=== PATIENT | male | born 1940 | race Caucasian/White ===

== ENCOUNTER → 2017-03-27 | Day surgery (SDC) | payer MEDICARE, BC ==
[~2017-03-27] MED LIST: Propofol 200 MG/20 ML SDV ONE; Sodium Chloride 0.9% 1,000 ML IV SCH; fentaNYL 100 MCG/2 ML SDV ONE
[2017-03-27 08:22] VITALS: BP 114/72
--- NOTE | 2017-03-27 11:11 | PROC ---
DATE OF PROCEDURE: 03/27/2017 INDICATION: This is a 77-year-old male who comes in for a colonoscopy. He has a history of polyps in the past. The risks and benefits were explained, and the patient was taken to the OR. ANESTHESIA: Given by nurse rubberizing mechanic. PROCEDURE IN DETAIL: The Olympus 180 scope was used. The tube was placed into the rectum and advanced under direct vision. Immediately we noted significant amount of stool. We tried to advance, and there was stool throughout the first 10 cm, difficult to get an adequate observation of the colonic wall. The procedure was terminated, and the tube was removed. He will have to get himself cleaned out again, and we will try to reschedule him within the next 2 weeks. PREOPERATIVE DIAGNOSIS: History of colonic polyps. POSTOPERATIVE DIAGNOSIS: Failed colonoscopy secondary to poor prep. Ry Lopez MD /[id number]
== END ==
LOC: JP.SDS 06:35
PROVIDERS: ATTEND Internal Medicine
DX: Z12.11 Encounter for screening for malignant neoplasm of colon (principal); Z86.010 Personal history of colon polyps; I10 Essential (primary) hypertension; E66.9 Obesity, unspecified; F32.9 Major depressive disorder, single episode, unspecified; Z87.891 Personal history of nicotine dependence; Z95.0 Presence of cardiac pacemaker; Z98.890 Other specified postprocedural states; Z68.30 Body mass index [BMI] 30.0-30.9, adult; Z79.01 Long term (current) use of anticoagulants; Z88.0 Allergy status to penicillin; Z88.2 Allergy status to sulfonamides
CPT/HCPCS: 45330; J2704; J3010; J7040

== ENCOUNTER 2017-04-10 06:05 | Day surgery (SDC) | payer MEDICARE, BC ==
[2017-04-10] MEDS ORDERED: Sodium Chloride 0.9% 1,000 ML IV SCH (07:00)
[2017-04-10] MEDS ORDERED: fentaNYL 100 MCG/2 ML SDV ONE (07:07)
[2017-04-10] MEDS ORDERED: Propofol 200 MG/20 ML SDV ONE ×2 (07:07→08:22)
[2017-04-10 09:31] VITALS: BP 124/68
--- NOTE | 2017-04-10 11:56 | PROC ---
DATE OF PROCEDURE: 04/10/2017 INDICATION: Jeremy is a 77-year-old male, who comes in for a screening colonoscopy. The risks and benefits were explained to the patient, and he was taken to the OR. DESCRIPTION OF PROCEDURE: Anesthesia was given by nurse primary care physician. During the procedure, we used 2 mg of Fentanyl and 240 mg of propofol. The Olympus 180AL scope was used, was placed into the rectum, after examination of the rectum with a gloved finger, which revealed the prostate to be grade 3/6, symmetrical, and soft. The tube was advanced and, at 60 cm, noted a large lesion. Initially, it appeared to be a polyp, but closer evaluation reveals a napkin ring-like lesion. The tube was advanced, and it did get into the cecum. Upon retraction of the tube, again noted the lesion at 60 cm. Biopsy was done. There was also a small polyp noted at 25 cm, and this was also biopsied. The remainder of the evaluation was unremarkable. The tube was removed. The patient tolerated the procedure well. PREOPERATIVE DIAGNOSIS: Screening colonoscopy. POSTOPERATIVE DIAGNOSIS: Napkin ring-like lesion at 60 cm. Biopsy report pending. Another biopsy done at 25 cm, and this revealed most likely a hyperplastic polyp. I feel that he will need to have a colon resection, depending on the report of the biopsy. Ry Lopez MD /[id number]
== END 2017-04-10 10:06 | disposition home or self-care (01) ==
LOC: JP.SDS 06:05
PROVIDERS: ATTEND Internal Medicine
DX: Z12.11 Encounter for screening for malignant neoplasm of colon (principal); D12.6 Benign neoplasm of colon, unspecified; K63.5 Polyp of colon; I10 Essential (primary) hypertension; F32.9 Major depressive disorder, single episode, unspecified; E66.9 Obesity, unspecified; Z88.2 Allergy status to sulfonamides; Z88.0 Allergy status to penicillin; Z95.0 Presence of cardiac pacemaker; Z98.890 Other specified postprocedural states; Z68.30 Body mass index [BMI] 30.0-30.9, adult; Z79.01 Long term (current) use of anticoagulants
CPT/HCPCS: 45380; 88305; J2704; J3010; J7040

== ENCOUNTER 2017-04-15 07:31 | Inpatient (IN) | payer MEDICARE, BC ==
[2017-04-15] MEDS ORDERED: Neomycin/Polymyxin B 1 ML, Sodium Chloride 0.9% 750 ML ONE ×2 (08:00)
[2017-04-15] MEDS: Dextrose 5%-Lactated Ringers 1,000 ML IV SCH ×3 (08:15→20:10)
[2017-04-15] MEDS ORDERED: Celecoxib 200 MG Cap PO ONE (08:15)
[2017-04-15] MEDS ORDERED: Scopolamine 1.5 MG Transdermal Patch TOP SCH (08:15)
[2017-04-15] MEDS ORDERED: Acetaminophen 500 MG Tab PO ONE (08:15)
[2017-04-15] MEDS ORDERED: fentaNYL 250 MCG/5 ML SDV ONE (08:33)
[2017-04-15] MEDS ORDERED: Glycopyrrolate 0.2 MG/ML 5 ML MDV ONE (08:34)
[2017-04-15] MEDS ORDERED: Dexamethasone 4 MG/ML SDV ONE (08:34)
[2017-04-15] MEDS ORDERED: Rocuronium 50 MG/5 ML Vial ONE ×2 (08:34→11:44)
[2017-04-15] MEDS ORDERED: Succinylcholine 200 MG/10 ML MDV ONE (08:34)
[2017-04-15] MEDS ORDERED: Ondansetron 4 MG/2 ML SDV ONE (08:34)
[2017-04-15] MEDS ORDERED: Neostigmine Methylsulfate 1 MG/ML 5 ML Syringe ONE (08:34)
[2017-04-15] MEDS ORDERED: Propofol 200 MG/20 ML SDV ONE (08:34)
[2017-04-15] MEDS ORDERED: Naloxone 0.4 MG/ML SDV IVPUSH PRN (09:40)
[2017-04-15] MEDS ORDERED: cefOXitin 2 GM in Sodium Chloride 0.9% 50 ML IV ONE (09:45)
[2017-04-15] MEDS ORDERED: Ketamine 500 MG/5 ML MDV IV ONE ×2 (09:45)
[2017-04-15] MEDS ORDERED: Lidocaine 2% 100 MG/5 ML Syringe IVPUSH ONE (09:45)
[2017-04-15] MEDS ORDERED: Meropenem 500 MG SDV ONE (09:49)
[2017-04-15] MEDS ORDERED: fentaNYL 100 MCG/2 ML SDV ONE (10:49)
[2017-04-15] MEDS ORDERED: Sodium Chloride 0.9% 10 ML ONE ×2 (10:49→11:39)
[2017-04-15] MEDS ORDERED: Lactated Ringers 1,000 ML ONE (10:50)
[2017-04-15] MEDS ORDERED: ePHEDrine 50 MG/ML SDV ONE (10:59)
[2017-04-15] MEDS ORDERED: Phenylephrine 1% 10 MG/ML SDV ONE (11:39)
[2017-04-15] MEDS: fentaNYL 2,500 MCG in Sodium Chloride 0.9% 200 ML EPIDUR SCH (13:15)
[2017-04-15] MEDS ORDERED: Ondansetron 4 MG/2 ML SDV IVPUSH PRN (13:41)
[2017-04-15] MEDS ORDERED: hydrOXYzine HCl 100 MG/2 ML SDV IM PRN (13:44)
[2017-04-15] MEDS ORDERED: hydrOXYzine HCl 25 MG Tab PO PRN (13:44)
[2017-04-15] MEDS: Lidocaine 0.4%/D5W 2 GM/500 ML BAG IV SCH (13:45)
[2017-04-15] MEDS ORDERED: Naloxone 0.4 MG/ML SDV IV PRN (13:59)
[2017-04-15] MEDS ORDERED: diphenhydrAMINE 50 MG/ML SDV IVPUSH PRN (13:59)
[2017-04-15] MEDS: cefOXitin 2 GM in Sodium Chloride 0.9% 50 ML IV SCH ×2 (14:53→20:07)
[2017-04-15] MEDS: VERIFY SCOPOLAMINE PATCH TOP SCH (14:56)
[2017-04-15] MEDS ORDERED: Lactated Ringers 500 ML IV ONE (15:15)
[2017-04-15] MEDS: Pantoprazole 40 MG Vial IV SCH (15:20)
[2017-04-15] MEDS: Acetaminophen 1,000 MG in Premix Bag 1 BAG IV SCH ×2 (16:37→22:23)
[2017-04-15] MEDS: Tamsulosin 0.4 MG Cap.ER PO SCH (20:02)
--- NOTE | 2017-04-15 21:16 | PCM.PN ---
- General Info Date of Service: 04/15/17 Subjective Update: He says he has no pain after surgery and very pleased with the care and the surgery. Functional Status: Reports: Pain Controlled - Review of Systems General: Reports: No Symptoms HEENT: Reports: No Symptoms Pulmonary: Reports: No Symptoms Cardiovascular: Reports: No Symptoms Gastrointestinal: Reports: No Symptoms Genitourinary: Reports: No Symptoms Musculoskeletal: Reports: No Symptoms Skin: Reports: No Symptoms Neurological: Reports: No Symptoms Psychiatric: Reports: No Symptoms - Patient Data Vitals - Most Recent: Last Vital Signs Temp 97.1 F 04/15/17 20:00 Pulse 78 04/15/17 20:00 Resp 18 04/15/17 20:00 BP 119/65 04/15/17 20:00 Pulse Ox 94 L 04/15/17 20:00 Weight - Most Recent: 255 lb I&O - Last 24 Hours: Intake & Output 04/15/17 04/15/17 04/15/17 06:59 14:59 22:59 Intake Total 125 2192 Output Total 180 175 Balance -2016 Lab Results Last 24 Hours: Laboratory Results - last 24 hr 04/15/17 04/15/17 Range/Units 08:54 08:54 PT 12.9 H (9.5-12.0) sec INR 1.20 (0.80-1.20) Phosphorus 1.9 L (2.5-4.9) mg/dL Magnesium 1.3 L (1.8-2.4) mg/dL Med Orders - Current: Current Medications Alvimopan (Entereg) 12 mg PO BID [facility] Stop: 04/22/17 09:01 Last Admin: 04/15/17 20:02 Dose: 12 mg Diphenhydramine HCl (Benadryl) 25 mg IVPUSH Q6H PRN PRN Reason: ITCHING Hydrochlorothiazide (Hydrochlorothiazide) 25 mg PO DAILY [facility] Hydroxyzine HCl (Vistaril) 100 mg IM ASDIRECTED PRN PRN Reason: Pain Hydroxyzine HCl (Atarax) 100 mg PO ASDIRECTED PRN PRN Reason: Pain Lidocaine HCl/Dextrose (Lidocaine 2 Gm/D5w 500 Ml) 2 gm in 500 mls @ 30 mls/hr IV .[id number] [facility] PRN Reason: 2 MG/MIN Stop: 04/16/17 10:00 Last Admin: 04/15/17 13:45 Dose: 2 mg/min, 30 mls/hr Fentanyl 2,500 mcg/ Sodium (Chloride) 250 mls @ 0 mls/hr EPIDUR TITRATE [facility]; Titrate PRN Reason: Protocol Dextrose/Lactated Ringer's (Dextrose 5%-Lactated Ringers) 1,000 mls @ 175 mls/ hr IV ASDIRECTED [facility] Last Admin: 04/15/17 20:10 Dose: 175 mls/hr Cefoxitin Sodium 2 gm/ Sodium (Chloride) 50 mls @ 100 mls/hr IV Q6H [facility] Stop: 04/16/17 09:29 Last Admin: 04/15/17 20:07 Dose: 100 mls/hr Acetaminophen 1,000 mg/ Premix 100 mls @ 400 mls/hr IV Q6H [facility] Stop: 04/16/17 16:01 Last Admin: 04/15/17 16:37 Dose: 400 mls/hr Lactated Ringer's (Ringers, Lactated) 500 mls @ 500 mls/hr IV .BOLUS [facility] Lisinopril (Prinivil) 20 mg PO DAILY [facility] Naloxone HCl (Narcan) 0.1 mg IVPUSH Q5M PRN PRN Reason: RESP RATE LESS THAN 6/MINUTE Naloxone HCl (Narcan) 0.4 mg IV ASDIRECTED PRN PRN Reason: ITCHING Verify Scopolamine (Patch) 0 each TOP DAILY [facility] Last Admin: 04/15/17 14:56 Dose: Not Given Ondansetron HCl (Zofran) 4 mg IVPUSH Q4H PRN PRN Reason: Nausea Pantoprazole Sodium (Protonix Iv) 40 mg IV Q24H [facility] Last Admin: 04/15/17 15:20 Dose: 40 mg Scopolamine (Transderm-Scop) 1.5 mg TOP Q72H [facility] Stop: 04/18/17 04:00 Last Admin: 04/15/17 08:00 Dose: 1.5 mg Tamsulosin HCl (Flomax) 0.4 mg PO BEDTIME [facility] Last Admin: 04/15/17 20:02 Dose: 0.4 mg Discontinued Medications Acetaminophen (Tylenol Extra Strength) 1,000 mg PO ONETIME ONE Stop: 04/15/17 08:16 Last Admin: 04/15/17 08:00 Dose: 1,000 mg Alvimopan (Entereg) 12 mg PO ONETIME ONE Stop: 04/15/17 07:46 Last Admin: 04/15/17 07:59 Dose: 12 mg Celecoxib (Celebrex) 200 mg PO ONETIME ONE Stop: 04/15/17 08:16 Last Admin: 04/15/17 07:59 Dose: 200 mg Neomycin/Polymyxin 1 ml/ (Sodium Chloride 750 ml) 0 ml .XX ONETIME ONE Stop: 04/15/17 08:01 Last Admin: 04/15/17 08:00 Dose: 750 ml Dexamethasone (Dexamethasone) Confirm Administered Dose 4 mg .ROUTE .STK-MED ONE Stop: 04/15/17 08:35 Ephedrine Sulfate (Ephedrine Sulfate) Confirm Administered Dose 50 mg .ROUTE .STK-MED ONE Stop: 04/15/17 11:00 Fentanyl (Sublimaze) Confirm Administered Dose 250 mcg .ROUTE .STK-MED ONE Stop: 04/15/17 08:34 Fentanyl (Sublimaze) Confirm Administered Dose 100 mcg .ROUTE .STK-MED ONE Stop: 04/15/17 10:50 Glycopyrrolate (Robinul) Confirm Administered Dose 1 mg .ROUTE .STK-MED ONE Stop: 04/15/17 08:35 Dextrose/Lactated Ringer's (Dextrose 5%-Lactated Ringers) 1,000 mls @ 100 mls/ hr IV ASDIRECTED [facility] Last Admin: 04/15/17 13:32 Dose: 100 mls/hr Cefoxitin Sodium 2 gm/ Sodium (Chloride) 50 mls @ 100 mls/hr IV ONETIME ONE Stop: 04/15/17 10:14 Last Admin: 04/15/17 10:09 Dose: 100 mls/hr Sodium Chloride (Normal Saline) Confirm Administered Dose 10 mls @ as directed .ROUTE .STK-MED ONE Stop: 04/15/17 10:50 Lactated Ringer's (Ringers, Lactated) Confirm Administered Dose 1,000 mls @ as directed .ROUTE .STK-MED ONE Stop: 04/15/17 10:51 Sodium Chloride (Normal Saline) Confirm Administered Dose 10 mls @ as directed .ROUTE .STK-MED ONE Stop: 04/15/17 11:40 Lactated Ringer's (Ringers, Lactated) 500 mls @ 500 mls/hr IV .BOLUS ONE Stop: 04/15/17 16:14 Last Admin: 04/15/17 15:26 Dose: 500 mls/hr Ketamine HCl (Ketalar) 37 mg IV ONETIME ONE Stop: 04/15/17 09:46 Last Admin: 04/15/17 14:44 Dose: Not Given Lidocaine HCl (Xylocaine 2%) 140 mg IVPUSH ONETIME ONE Stop: 04/15/17 09:46 Last Admin: 04/15/17 13:33 Dose: Not Given Meropenem (Merrem) Confirm Administered Dose 500 mg .ROUTE .STK-MED ONE Stop: 04/15/17 09:50 Last Admin: 04/15/17 10:57 Dose: 500 mg Neostigmine Methylsulfate (Neostigmine) Confirm Administered Dose 5 mg .ROUTE .STK-MED ONE Stop: 04/15/17 08:35 Ondansetron HCl (Zofran) Confirm Administered Dose 4 mg .ROUTE .STK-MED ONE Stop: 04/15/17 08:35 Phenylephrine HCl (Pako-Synephrine) Confirm Administered Dose 10 mg .ROUTE .STK- MED ONE Stop: 04/15/17 11:40 Propofol (Diprivan 20 Ml) Confirm Administered Dose 200 mg .ROUTE .STK-MED ONE Stop: 04/15/17 08:35 Rocuronium [place] (Zemuron) Confirm Administered Dose 50 mg .ROUTE .STK-MED ONE Stop: 04/15/17 08:35 Rocuronium [place] (Zemuron) Confirm Administered Dose 50 mg .ROUTE .STK-MED ONE Stop: 04/15/17 11:45 Succinylcholine Chloride (Quelicin) Confirm Administered Dose 200 mg .ROUTE .STK -MED ONE Stop: 04/15/17 08:35 - Exam General: Alert, Oriented Neck: Supple Lungs: Clear to Auscultation, Normal Respiratory Effort Cardiovascular: Regular Rate, Regular Rhythm Extremities: Normal Inspection, Normal Range of Motion, Non-Tender, No Pedal Edema, Normal Capillary Refill - Problem List Review Problem List Initiated/Reviewed/Updated: Yes - Plan Plan:: Assessment/Plan: #1. HTN: Stable presently #2. ASHD: Stable presently. #3. S/P colon resection. Stable presently. #4. Atrial Fib. Need to restart coumadin as soon as possible after the closure.
[2017-04-15] MEDS: Lactated Ringers 500 ML IV SCH (21:18)
[2017-04-16] MEDS: Lidocaine 0.4%/D5W 2 GM/500 ML BAG IV SCH (02:44)
[2017-04-16] MEDS ORDERED: Lactated Ringers 500 ML IV SCH (03:15)
[2017-04-16] MEDS: cefOXitin 2 GM in Sodium Chloride 0.9% 50 ML IV SCH ×2 (03:21→09:19)
[2017-04-16] MEDS: Lactated Ringers 500 ML IV SCH (03:50)
[2017-04-16] MEDS: Dextrose 5%-Lactated Ringers 1,000 ML IV SCH ×2 (04:49→18:34)
[2017-04-16] MEDS: Acetaminophen 1,000 MG in Premix Bag 1 BAG IV SCH (04:49)
[2017-04-16] MEDS ORDERED: Lactated Ringers 500 ML IV ONE ×2 (06:56→13:00)
[2017-04-16] MEDS ORDERED: Acetaminophen 325 MG Tab PO SCH (07:30)
--- NOTE | 2017-04-16 09:11 | PN ---
DATE OF SERVICE: 04/16/2017 SUBJECTIVE: Jeremy is postop day #1. He reports his pain is controlled. His vital signs have been normal. Oral intake 820 mL. Output has been diminished. He has received 3 boluses of lactated Ringer's, 500 mL each. REVIEW OF SYSTEMS: Remainder of review of systems negative for any pertinent positives or negatives. OBJECTIVE: GENERAL: Jeremy Correia is a pleasant 77-year-old male. VITAL SIGNS: TPR is 97.6, 88, 20, and blood pressure 102/77. HEENT: Negative. NECK: Supple. HEART: Regular rate and rhythm. LUNGS: Clear. ABDOMEN: Dressings dry and intact. Abdominal binders on. EXTREMITIES: Without peripheral edema. Toribio catheter in place and draining clear enzo urine. ASSESSMENT: Exploratory laparotomy with intraoperative colonoscopy, rectosigmoid resection with coloproctostomy, and placement of Vicryl mesh for sessile polyp located in the sigmoid colon, inability to palpate location of tumor; on 04/15/2017, Richar Samaniego MD. RECOMMENDATION: Orders; 1. IV 175 mL/hour, decrease to 100 mL/hour at 1800 hours. 2. Check CBC, BMP, and phos in a.m. 3. Schedule and have consent signed for delayed primary closure; Richar Samaniego MD; for , 04/17/2017, at 0715 hours. 4. N.p.o. after midnight. 5. Mag phos 2 grams q.6 hours x72 hours. 6. Celebrex 200 mg p.o. daily. 7. Tylenol 650 mg q.6 hours p.o. when IV Tylenol is complete. 8. Good pulmonary toilet. 9. We will evaluate p.r.n. or in a.m. Debra Fuentes PA-C /[id number]
[2017-04-16] MEDS: Hydrochlorothiazide 25 MG Tab PO SCH (09:34)
[2017-04-16] MEDS: Bisacodyl 5 MG Tab PO SCH ×2 (09:34→20:17)
[2017-04-16] MEDS: Celecoxib 200 MG Cap PO SCH (09:34)
[2017-04-16] MEDS: VERIFY SCOPOLAMINE PATCH TOP SCH (09:35)
[2017-04-16] MEDS: Lisinopril 20 MG Tab PO SCH (09:39)
[2017-04-16] MEDS: Magnesium Sulfate/Water 2 GM in Premix Bag 1 BAG IV SCH ×3 (10:16→22:08)
[2017-04-16] MEDS: Acetaminophen 325 MG Tab PO SCH ×3 (11:17→21:46)
[2017-04-16] MEDS ORDERED: Dextrose 5%-Lactated Ringers 1,000 ML IV SCH (11:45)
[2017-04-16] MEDS ORDERED: Furosemide 20 MG/2 ML VIAL IVPUSH ONE (13:00)
[2017-04-16] MEDS: fentaNYL 2,500 MCG in Sodium Chloride 0.9% 200 ML EPIDUR SCH (13:57)
[2017-04-16] MEDS: Pantoprazole 40 MG Vial IV SCH (15:05)
[2017-04-16] MEDS: Tamsulosin 0.4 MG Cap.ER PO SCH (20:17)
--- NOTE | 2017-04-16 20:17 | PCM.PN ---
- General Info Date of Service: 04/16/17 Functional Status: Reports: Pain Controlled - Review of Systems General: Reports: Weakness HEENT: Reports: No Symptoms Pulmonary: Reports: No Symptoms Cardiovascular: Reports: No Symptoms Psychiatric: Reports: No Symptoms - Patient Data Vitals - Most Recent: Last Vital Signs Temp 97.9 F 04/16/17 19:13 Pulse 69 04/16/17 19:13 Resp 18 04/16/17 19:13 BP 121/72 04/16/17 19:13 Pulse Ox 94 L 04/16/17 20:02 Weight - Most Recent: 254 lb 15.998 oz I&O - Last 24 Hours: Intake & Output 04/16/17 04/16/17 04/16/17 06:59 14:59 22:59 Intake Total 2360 1050 2908 Output Total 615 181 3732 Balance 2155 862 1695 Lab Results Last 24 Hours: Laboratory Results - last 24 hr 04/15/17 04/16/17 04/16/17 Range/Units 08:00 04:34 04:34 WBC 17.4 H (4.5-11.0) K/uL RBC 4.54 (4.30-5.90) M/uL Hgb 12.2 D (12.0-15.0) g/dL Hct 39.0 L (40.0-54.0) % MCV 86 (80-98) fL MCH 27 (27-31) pg MCHC 31 L (32-36) % Plt Count 188 (150-400) K/uL Sodium 138 L (140-148) mmol/L Potassium 4.6 (3.6-5.2) mmol/L Chloride 104 (100-108) mmol/L Carbon Dioxide 25 (21-32) mmol/L Anion Gap 13.6 (5.0-14.0) mmol/L BUN 21 H (7-18) mg/dL Creatinine 2.1 H D (0.8-1.3) mg/dL Est Cr Clr Drug Dosing 31.38 mL/min Estimated GFR (MDRD) 31 L (>60) Glucose 104 (74-106) mg/dL Calcium 9.4 (8.5-10.1) mg/dL Phosphorus 3.3 (2.5-4.9) mg/dL Magnesium 1.3 L (1.8-2.4) mg/dL NT-Pro-B Natriuret Pep 108 (5-450) pg/mL Carcinoembryonic Ag 1.6 (0.0-3.7) ng/mL Med Orders - Current: Current Medications Acetaminophen (Tylenol) 650 mg PO Q6H [facility] Last Admin: 04/16/17 15:48 Dose: 650 mg Alvimopan (Entereg) 12 mg PO BID [facility] Stop: 04/22/17 09:01 Last Admin: 04/16/17 09:34 Dose: 12 mg Bisacodyl (Dulcolax) 20 mg PO BID [facility] Last Admin: 04/16/17 09:34 Dose: 20 mg Celecoxib (Celebrex) 200 mg PO DAILY [facility] Last Admin: 04/16/17 09:34 Dose: 200 mg Diphenhydramine HCl (Benadryl) 25 mg IVPUSH Q6H PRN PRN Reason: ITCHING Hydrochlorothiazide (Hydrochlorothiazide) 25 mg PO DAILY [facility] Last Admin: 04/16/17 09:34 Dose: 25 mg Hydroxyzine HCl (Vistaril) 100 mg IM ASDIRECTED PRN PRN Reason: Pain Hydroxyzine HCl (Atarax) 100 mg PO ASDIRECTED PRN PRN Reason: Pain Fentanyl 2,500 mcg/ Sodium (Chloride) 250 mls @ 0 mls/hr EPIDUR TITRATE [facility]; Titrate PRN Reason: Protocol Last Admin: 04/16/17 13:57 Dose: 50 mcg/hr, 5 mls/hr Magnesium Sulfate 2 gm/ Premix 50 mls @ 25 mls/hr IV Q6H [facility] Stop: 04/19/17 05:59 Last Admin: 04/16/17 15:09 Dose: 25 mls/hr Dextrose/Lactated Ringer's (Dextrose 5%-Lactated Ringers) 1,000 mls @ 100 mls/ hr IV ASDIRECTED [facility] Last Admin: 04/16/17 18:34 Dose: 100 mls/hr Lisinopril (Prinivil) 20 mg PO DAILY [facility] Last Admin: 04/16/17 09:39 Dose: Not Given Naloxone HCl (Narcan) 0.1 mg IVPUSH Q5M PRN PRN Reason: RESP RATE LESS THAN 6/MINUTE Naloxone HCl (Narcan) 0.4 mg IV ASDIRECTED PRN PRN Reason: ITCHING Verify Scopolamine (Patch) 0 each TOP DAILY [facility] Last Admin: 04/16/17 09:35 Dose: Not Given Ondansetron HCl (Zofran) 4 mg IVPUSH Q4H PRN PRN Reason: Nausea Pantoprazole Sodium (Protonix Iv) 40 mg IV Q24H [facility] Last Admin: 04/16/17 15:05 Dose: 40 mg Scopolamine (Transderm-Scop) 1.5 mg TOP Q72H [facility] Stop: 04/18/17 04:00 Last Admin: 04/15/17 08:00 Dose: 1.5 mg Senna/Docusate Sodium (Senna Plus) 2 tab PO BEDTIME [facility] Tamsulosin HCl (Flomax) 0.4 mg PO BEDTIME [facility] Last Admin: 04/15/17 20:02 Dose: 0.4 mg Discontinued Medications Acetaminophen (Tylenol Extra Strength) 1,000 mg PO ONETIME ONE Stop: 04/15/17 08:16 Last Admin: 04/15/17 08:00 Dose: 1,000 mg Acetaminophen (Tylenol) 650 mg PO Q6H [facility] Last Admin: 04/16/17 08:19 Dose: Not Given Alvimopan (Entereg) 12 mg PO ONETIME ONE Stop: 04/15/17 07:46 Last Admin: 04/15/17 07:59 Dose: 12 mg Celecoxib (Celebrex) 200 mg PO ONETIME ONE Stop: 04/15/17 08:16 Last Admin: 04/15/17 07:59 Dose: 200 mg Neomycin/Polymyxin 1 ml/ (Sodium Chloride 750 ml) 0 ml .XX ONETIME ONE Stop: 04/15/17 08:01 Last Admin: 04/15/17 08:00 Dose: 750 ml Dexamethasone (Dexamethasone) Confirm Administered Dose 4 mg .ROUTE .STK-MED ONE Stop: 04/15/17 08:35 Ephedrine Sulfate (Ephedrine Sulfate) Confirm Administered Dose 50 mg .ROUTE .STK-MED ONE Stop: 04/15/17 11:00 Fentanyl (Sublimaze) Confirm Administered Dose 250 mcg .ROUTE .STK-MED ONE Stop: 04/15/17 08:34 Fentanyl (Sublimaze) Confirm Administered Dose 100 mcg .ROUTE .STK-MED ONE Stop: 04/15/17 10:50 Furosemide (Lasix) 10 mg IVPUSH ONETIME ONE Stop: 04/16/17 13:01 Last Admin: 04/16/17 13:02 Dose: 10 mg Glycopyrrolate (Robinul) Confirm Administered Dose 1 mg .ROUTE .ST-MED ONE Stop: 04/15/17 08:35 Dextrose/Lactated Ringer's (Dextrose 5%-Lactated Ringers) 1,000 mls @ 100 mls/ hr IV ASDIRECTED [facility] Last Admin: 04/15/17 13:32 Dose: 100 mls/hr Cefoxitin Sodium 2 gm/ Sodium (Chloride) 50 mls @ 100 mls/hr IV ONETIME ONE Stop: 04/15/17 10:14 Last Admin: 04/15/17 10:09 Dose: 100 mls/hr Lidocaine HCl/Dextrose (Lidocaine 2 Gm/D5w 500 Ml) 2 gm in 500 mls @ 30 mls/hr IV .[id number] [facility] PRN Reason: 2 MG/MIN Stop: 04/16/17 10:00 Last Admin: 04/16/17 02:44 Dose: 2 mg/min, 30 mls/hr Sodium Chloride (Normal Saline) Confirm Administered Dose 10 mls @ as directed .ROUTE .[facility]-MED ONE Stop: 04/15/17 10:50 Lactated Ringer's (Ringers, Lactated) Confirm Administered Dose 1,000 mls @ as directed .ROUTE .[facility]-MED ONE Stop: 04/15/17 10:51 Sodium Chloride (Normal Saline) Confirm Administered Dose 10 mls @ as directed .ROUTE .[facility]-MED ONE Stop: 04/15/17 11:40 Dextrose/Lactated Ringer's (Dextrose 5%-Lactated Ringers) 1,000 mls @ 175 mls/ hr IV ASDIRECTED [facility] Last Admin: 04/16/17 04:49 Dose: 175 mls/hr Cefoxitin Sodium 2 gm/ Sodium (Chloride) 50 mls @ 100 mls/hr IV Q6H [facility] Stop: 04/16/17 09:29 Last Admin: 04/16/17 09:19 Dose: 100 mls/hr Acetaminophen 1,000 mg/ Premix 100 mls @ 400 mls/hr IV Q6H [facility] Stop: 04/16/17 16:01 Last Admin: 04/16/17 04:49 Dose: 400 mls/hr Lactated Ringer's (Ringers, Lactated) 500 mls @ 500 mls/hr IV .BOLUS ONE Stop: 04/15/17 16:14 Last Admin: 04/15/17 15:26 Dose: 500 mls/hr Lactated Ringer's (Ringers, Lactated) 500 mls @ 500 mls/hr IV .BOLUS [facility] Last Admin: 04/16/17 03:50 Dose: 500 mls/hr Lactated Ringer's (Ringers, Lactated) 500 mls @ 500 mls/hr IV .BOLUS [facility] Lactated Ringer's (Ringers, Lactated) 500 mls @ 500 mls/hr IV ONETIME ONE Stop: 04/16/17 07:55 Last Admin: 04/16/17 06:59 Dose: 500 mls/hr Dextrose/Lactated Ringer's (Dextrose 5%-Lactated Ringers) 1,000 mls @ 175 mls/ hr IV ASDIRECTED [facility] Stop: 04/16/17 17:55 Last Admin: 04/16/17 11:42 Dose: 175 mls/hr Lactated Ringer's (Ringers, Lactated) 500 mls @ 500 mls/hr IV .BOLUS ONE Stop: 04/16/17 13:59 Last Admin: 04/16/17 13:02 Dose: 500 mls/hr Ketamine HCl (Ketalar) 37 mg IV ONETIME ONE Stop: 04/15/17 09:46 Last Admin: 04/15/17 14:44 Dose: Not Given Lidocaine HCl (Xylocaine 2%) 140 mg IVPUSH ONETIME ONE Stop: 04/15/17 09:46 Last Admin: 04/15/17 13:33 Dose: Not Given Meropenem (Merrem) Confirm Administered Dose 500 mg .ROUTE .STK-MED ONE Stop: 04/15/17 09:50 Last Admin: 04/15/17 10:57 Dose: 500 mg Neostigmine Methylsulfate (Neostigmine) Confirm Administered Dose 5 mg .ROUTE .STK-MED ONE Stop: 04/15/17 08:35 Ondansetron HCl (Zofran) Confirm Administered Dose 4 mg .ROUTE .STK-MED ONE Stop: 04/15/17 08:35 Phenylephrine HCl (Pako-Synephrine) Confirm Administered Dose 10 mg .ROUTE .STK- MED ONE Stop: 04/15/17 11:40 Propofol (Diprivan 20 Ml) Confirm Administered Dose 200 mg .ROUTE .STK-MED ONE Stop: 04/15/17 08:35 Rocuronium [place] (Zemuron) Confirm Administered Dose 50 mg .ROUTE .STK-MED ONE Stop: 04/15/17 08:35 Rocuronium [place] (Zemuron) Confirm Administered Dose 50 mg .ROUTE .STK-MED ONE Stop: 04/15/17 11:45 Succinylcholine Chloride (Quelicin) Confirm Administered Dose 200 mg .ROUTE .STK -MED ONE Stop: 04/15/17 08:35 - Exam General: Alert, Oriented HEENT: Pupils Equal, Pupils Reactive, EOMI, Mucous Membr. Moist/[place] Neck: Supple Lungs: Clear to Auscultation, Normal Respiratory Effort Cardiovascular: Regular Rate, Regular Rhythm Extremities: Normal Inspection, Normal Range of Motion, Non-Tender, No Pedal Edema, Normal Capillary Refill - Problem List Review Problem List Initiated/Reviewed/Updated: Yes - Plan Plan:: Assessment/Plan: #1. HTN: Good control. #2. ASHD: Stable presently. #3. S/P colon resection. Stable presently. #4. Atrial Fib. Need to restart coumadin as soon as possible closure is tomorrow.
[2017-04-17] MEDS: Magnesium Sulfate/Water 2 GM in Premix Bag 1 BAG IV SCH ×4 (04:10→22:04)
[2017-04-17] MEDS: Acetaminophen 325 MG Tab PO SCH ×4 (04:15→22:04)
[2017-04-17] MEDS: Dextrose 5%-Lactated Ringers 1,000 ML IV SCH (04:29)
[2017-04-17] MEDS ORDERED: Bupivacaine 0.5% 50 ML MDV ONE (06:38)
[2017-04-17] MEDS ORDERED: Lidocaine 1% with EPINEPHrine 1:100,000 50 ML MDV ONE (06:38)
[2017-04-17] MEDS ORDERED: Meropenem 500 MG SDV ONE (06:38)
[2017-04-17] MEDS ORDERED: fentaNYL 100 MCG/2 ML SDV ONE (06:53)
[2017-04-17] MEDS ORDERED: Propofol 200 MG/20 ML SDV ONE (06:53)
[2017-04-17] MEDS ORDERED: fentaNYL 100 MCG/2 ML SDV IVPUSH ONE (08:30)
--- NOTE | 2017-04-17 08:59 | PN ---
DATE OF SERVICE: 04/17/2017 SUBJECTIVE: Jeremy is n.p.o. for delayed primary closure. Vital signs have been stable. Pain has been controlled. Oral intake was 1290. He did have difficulty with maintaining his urinary output quota. He was given Lasix 10 mg IV once. His urine output did increase. He had 4106 out. ALVINA drain put out 20 mL of a light pink serosanguineous drainage. REVIEW OF SYSTEMS: Remainder of review of systems negative for any pertinent positives and negatives. OBJECTIVE: GENERAL: Jeremy Correia is a pleasant 77-year-old male. VITAL SIGNS: TPR is 99.5, 78, 14, and blood pressure 116/63. HEENT: Negative. NECK: Supple. HEART: Regular rate and rhythm. LUNGS: Clear. ABDOMEN: Dressings dry and intact. ALVINA drain intact. Abdominal binder is on. Toribio is intact and draining enzo urine. EXTREMITIES: Reveal trace peripheral edema. ASSESSMENT: Exploratory laparotomy with intraoperative colonoscopy, rectosigmoid resection with coloproctostomy, and placement of Vicryl mesh for sessile polyp located in the sigmoid colon. Date of surgery, 04/15/2017, Richar Samaniego MD. PLAN: 1. Orders to be written after delayed primary closure today. 2. We will evaluate p.r.n. or in a.m. Debra Fuentes PA-C /[id number]
[2017-04-17] MEDS: Lisinopril 20 MG Tab PO SCH (09:21)
[2017-04-17] MEDS: Bisacodyl 5 MG Tab PO SCH ×2 (09:21→20:31)
[2017-04-17] MEDS: Celecoxib 200 MG Cap PO SCH (09:21)
[2017-04-17] MEDS: Hydrochlorothiazide 25 MG Tab PO SCH (09:21)
[2017-04-17] MEDS: VERIFY SCOPOLAMINE PATCH TOP SCH (09:22)
[2017-04-17] MEDS ORDERED: Sodium Chloride 0.9% 10 ML Syringe IV PRN (09:27)
[2017-04-17] MEDS: Magnesium Hydroxide 400 MG/5 ML Susp 30 ML Cup PO SCH ×2 (10:22→20:32)
--- NOTE | 2017-04-17 10:41 | OR ---
DATE OF PROCEDURE: 04/15/2017 PREOPERATIVE DIAGNOSIS: Sessile mass, left colon. POSTOPERATIVE DIAGNOSES: 1. Sessile polyp located in the mid sigmoid colon. 2. Inability to palpate location of the mass. OPERATIVE PROCEDURE: Exploratory laparotomy with: 1. Intraoperative flexible sigmoidoscopy to identify the location of the mass (81106). 2. Rectosigmoid resection with coloproctostomy (68955). 3. Placement of Vicryl mesh to displace pelvic and abdominal wall from underlying small bowel and other viscera (14281). ANESTHESIA: General plus epidural. INDICATION FOR PROCEDURE: This is a 77-year-old male presenting with a recently identified sessile mass, which was located at 60 cm. Dye was injected at the area. The plan was to proceed with exploratory laparotomy with segmental colon resection with primary anastomosis. An enhanced recovery program will be included, which will include a preoperative antibiotic enema and anesthesia consisting of both an epidural catheter infusion and general anesthetic. Potential risks of the procedure including bleeding, infection, injury to the underlying viscera, possible leaks from the anastomosis requiring a temporary colostomy, along with the possibility of cardiopulmonary, septic, or hemorrhagic complications leading to were all discussed, and the patient wishes to proceed. DETAILS OF PROCEDURE: The patient was taken to the operating room and placed in a supine position. After general endotracheal anesthesia was induced, he was converted to a lithotomy position and a Toribio catheter was inserted and the abdomen was prepped and draped. A midline incision from roughly 3 fingerbreadths above the umbilicus to the pubis was made and carried down through the full thickness abdominal wall. Upon entering the peritoneal cavity, general exploration was undertaken. The patient had quite a bit in the way of diverticular disease and quite extensive fat infiltration of the colon mesentery. Apart from that, the mass could not be seen, nor could we see any dye per se. I suspect this may have gone into the depths of the mesentery not visible. Otherwise, the examination in the abdomen was unremarkable, other than a generalized obesity. There was no palpable liver areas and no periaortic lymphadenopathy. At this point, given the inability to identify the location of the tumor, a bowel clamp was placed at the junction of the descending and sigmoid colon, and a flexible sigmoidoscope was then passed. At roughly 60 cm, the area of the sessile polypoid mass could then be identified, along with some faint blue dye stain within the colon wall. That area was then clamped with a Bella clamp to maintain identification of the location and the flexible sigmoidoscope then withdrawn and as much air removed as possible. This was more or less in the mid sigmoid colon. At the junction of the proximal sigmoid colon and descending colon and then the upper rectum were then both divided with JENNIFER black loads and the underlying mesentery divided with a combination of vascular and mesenteric loads, removing a nice fan of underlying mesentery. Care was taken to avoid injury to the left ureter. The specimen was then delivered from the field and opened off the field to confirm adequate removal of the polypoid sessile mass. At this point, the anvil of a 28 mm EEA stapler was placed into the descending colon. This was freed up a little bit from the left lateral pelvic sidewall and then came down to the rectum without any tension. After the anvil was placed into the descending colon, this was re-stapled with a purple load. The main body of EEA stapler was then brought up to the apex of the rectal staple line, then the two components of the stapler were united, and the coloproctostomy was thus accomplished. Upon removal of stapler, double donuts of mucosa were noted within. The area was tested with some air insufflation with the colonoscope, and no air bubbles were seen with the area being covered with antibiotic-containing saline solution. The anastomosis was then reinforced with some 3-0 Vicryl seromuscular stitch, along with fibrin sealant, and at that point, no further problems noted. The omentum was not satisfactorily mobile to get into the pelvis. Therefore, a Vicryl mesh was then placed along the posterior aspect of the urinary bladder, up along the pelvic sidewalls, and then up against the anterior abdominal wall to displace the small bowel and other viscera away from those structures. The midline peritoneum from the semilunaris line down was then closed with a #2 Vicryl stitch, and the anterior fascia was then closed with a #2 Vicryl stitch as well. A single Mike-Larson drain was then placed in the right lateral abdomen and taken down into the depths of the pelvis adjacent to the anastomosis, and otherwise the skin and subcutaneous tissue were left open for planned delayed primary closure in 48 hours. There were no evident complications. The patient was taken to the recovery room in satisfactory condition. Richar Samaniego MD /[id number]
[2017-04-17] MEDS: traMADol 50 MG Tab PO PRN ×2 (12:53→22:09)
[2017-04-17] MEDS: Pantoprazole 40 MG Vial IV SCH (17:09)
--- NOTE | 2017-04-17 20:22 | PCM.PN ---
- General Info Date of Service: 04/17/17 Functional Status: Reports: Pain Controlled - Review of Systems General: Reports: No Symptoms HEENT: Reports: No Symptoms Pulmonary: Reports: No Symptoms Cardiovascular: Reports: No Symptoms Gastrointestinal: Reports: No Symptoms Skin: Reports: No Symptoms Neurological: Reports: No Symptoms - Patient Data Vitals - Most Recent: Last Vital Signs Temp 98.2 F 04/17/17 19:43 Pulse 70 04/17/17 19:43 Resp 12 04/17/17 19:43 BP 113/64 04/17/17 19:43 Pulse Ox 96 04/17/17 19:43 Weight - Most Recent: 254 lb 15.998 oz I&O - Last 24 Hours: Intake & Output 04/17/17 04/17/17 04/17/17 06:59 14:59 22:59 Intake Total 1711 756 490 Output Total 900 250 155 Balance 811 506 335 Lab Results Last 24 Hours: Laboratory Results - last 24 hr 04/17/17 04/17/17 Range/Units 04:43 04:43 WBC 10.8 (4.5-11.0) K/uL RBC 4.47 (4.30-5.90) M/uL Hgb 11.8 L (12.0-15.0) g/dL Hct 38.7 L (40.0-54.0) % MCV 87 (80-98) fL MCH 26 L (27-31) pg MCHC 31 L (32-36) % Plt Count 147 L (150-400) K/uL Sodium 138 L (140-148) mmol/L Potassium 4.3 (3.6-5.2) mmol/L Chloride 103 (100-108) mmol/L Carbon Dioxide 30 (21-32) mmol/L Anion Gap 9.3 (5.0-14.0) mmol/L BUN 23 H (7-18) mg/dL Creatinine 1.4 H (0.8-1.3) mg/dL Est Cr Clr Drug Dosing 46.87 mL/min Estimated GFR (MDRD) 49 L (>60) Glucose 121 H (74-106) mg/dL Calcium 9.6 (8.5-10.1) mg/dL Phosphorus 2.3 L (2.5-4.9) mg/dL Med Orders - Current: Current Medications Acetaminophen (Tylenol) 650 mg PO Q6H [facility] Last Admin: 04/17/17 17:08 Dose: 650 mg Alvimopan (Entereg) 12 mg PO BID [facility] Stop: 04/22/17 09:01 Last Admin: 04/17/17 09:21 Dose: 12 mg Bisacodyl (Dulcolax) 20 mg PO BID [facility] Last Admin: 04/17/17 09:21 Dose: 20 mg Celecoxib (Celebrex) 200 mg PO DAILY [facility] Last Admin: 04/17/17 09:21 Dose: 200 mg Hydrochlorothiazide (Hydrochlorothiazide) 25 mg PO DAILY [facility] Last Admin: 04/17/17 09:21 Dose: 25 mg Hydroxyzine HCl (Vistaril) 100 mg IM ASDIRECTED PRN PRN Reason: Pain Hydroxyzine HCl (Atarax) 100 mg PO ASDIRECTED PRN PRN Reason: Pain Magnesium Sulfate 2 gm/ Premix 50 mls @ 25 mls/hr IV Q6H [facility] Stop: 04/19/17 05:59 Last Admin: 04/17/17 17:08 Dose: 25 mls/hr Lisinopril (Prinivil) 20 mg PO DAILY [facility] Last Admin: 04/17/17 09:21 Dose: 20 mg Magnesium Hydroxide (Milk Of Magnesia) 30 ml PO BID [facility] Last Admin: 04/17/17 10:22 Dose: 30 ml Verify Scopolamine (Patch) 0 each TOP DAILY [facility] Last Admin: 04/17/17 09:22 Dose: Not Given Ondansetron HCl (Zofran) 4 mg IVPUSH Q4H PRN PRN Reason: Nausea Pantoprazole Sodium (Protonix Iv) 40 mg IV Q24H [facility] Last Admin: 04/17/17 17:09 Dose: 40 mg Scopolamine (Transderm-Scop) 1.5 mg TOP Q72H [facility] Stop: 04/18/17 04:00 Last Admin: 04/15/17 08:00 Dose: 1.5 mg Senna/Docusate Sodium (Senna Plus) 2 tab PO BEDTIME [facility] Last Admin: 04/16/17 20:17 Dose: 2 tab Sodium Chloride (Saline Flush) 10 ml IV ASDIRECTED PRN PRN Reason: LINE MAINTENCE Tamsulosin HCl (Flomax) 0.4 mg PO BEDTIME [facility] Last Admin: 04/16/17 20:17 Dose: 0.4 mg Tramadol HCl (Ultram) 50 - 100 mg PO Q6H PRN PRN Reason: PAIN Last Admin: 04/17/17 12:53 Dose: 100 mg Discontinued Medications Acetaminophen (Tylenol Extra Strength) 1,000 mg PO ONETIME ONE Stop: 04/15/17 08:16 Last Admin: 04/15/17 08:00 Dose: 1,000 mg Acetaminophen (Tylenol) 650 mg PO Q6H [facility] Last Admin: 04/16/17 08:19 Dose: Not Given Alvimopan (Entereg) 12 mg PO ONETIME ONE Stop: 04/15/17 07:46 Last Admin: 04/15/17 07:59 Dose: 12 mg Bupivacaine HCl (Marcaine 0.5%) Confirm Administered Dose 50 ml .ROUTE .STK-MED ONE Stop: 04/17/17 06:39 Last Admin: 04/17/17 07:34 Dose: 10 ml Celecoxib (Celebrex) 200 mg PO ONETIME ONE Stop: 04/15/17 08:16 Last Admin: 04/15/17 07:59 Dose: 200 mg Neomycin/Polymyxin 1 ml/ (Sodium Chloride 750 ml) 0 ml .XX ONETIME ONE Stop: 04/15/17 08:01 Last Admin: 04/15/17 08:00 Dose: 750 ml Dexamethasone (Dexamethasone) Confirm Administered Dose 4 mg .ROUTE .STK-MED ONE Stop: 04/15/17 08:35 Diphenhydramine HCl (Benadryl) 25 mg IVPUSH Q6H PRN PRN Reason: ITCHING Ephedrine Sulfate (Ephedrine Sulfate) Confirm Administered Dose 50 mg .ROUTE .STK-MED ONE Stop: 04/15/17 11:00 Fentanyl (Sublimaze) Confirm Administered Dose 250 mcg .ROUTE .STK-MED ONE Stop: 04/15/17 08:34 Fentanyl (Sublimaze) Confirm Administered Dose 100 mcg .ROUTE .STK-MED ONE Stop: 04/15/17 10:50 Fentanyl (Sublimaze) Confirm Administered Dose 100 mcg .ROUTE .STK-MED ONE Stop: 04/17/17 06:54 Fentanyl (Sublimaze) 100 mcg IVPUSH ONETIME ONE Stop: 04/17/17 08:31 Last Admin: 04/17/17 08:22 Dose: 100 mcg Furosemide (Lasix) 10 mg IVPUSH ONETIME ONE Stop: 04/16/17 13:01 Last Admin: 04/16/17 13:02 Dose: 10 mg Glycopyrrolate (Robinul) Confirm Administered Dose 1 mg .ROUTE .STK-MED ONE Stop: 04/15/17 08:35 Dextrose/Lactated Ringer's (Dextrose 5%-Lactated Ringers) 1,000 mls @ 100 mls/ hr IV ASDIRECTED [facility] Last Admin: 04/15/17 13:32 Dose: 100 mls/hr Cefoxitin Sodium 2 gm/ Sodium (Chloride) 50 mls @ 100 mls/hr IV ONETIME ONE Stop: 04/15/17 10:14 Last Admin: 04/15/17 10:09 Dose: 100 mls/hr Lidocaine HCl/Dextrose (Lidocaine 2 Gm/D5w 500 Ml) 2 gm in 500 mls @ 30 mls/hr IV .[id number] [facility] PRN Reason: 2 MG/MIN Stop: 04/16/17 10:00 Last Admin: 04/16/17 02:44 Dose: 2 mg/min, 30 mls/hr Fentanyl 2,500 mcg/ Sodium (Chloride) 250 mls @ 0 mls/hr EPIDUR TITRATE [facility]; Titrate PRN Reason: Protocol Last Admin: 04/16/17 13:57 Dose: 50 mcg/hr, 5 mls/hr Sodium Chloride (Normal Saline) Confirm Administered Dose 10 mls @ as directed .ROUTE .ST-MED ONE Stop: 04/15/17 10:50 Lactated Ringer's (Ringers, Lactated) Confirm Administered Dose 1,000 mls @ as directed .ROUTE .STK-MED ONE Stop: 04/15/17 10:51 Sodium Chloride (Normal Saline) Confirm Administered Dose 10 mls @ as directed .ROUTE .STK-MED ONE Stop: 04/15/17 11:40 Dextrose/Lactated Ringer's (Dextrose 5%-Lactated Ringers) 1,000 mls @ 175 mls/ hr IV ASDIRECTED [facility] Last Admin: 04/16/17 04:49 Dose: 175 mls/hr Cefoxitin Sodium 2 gm/ Sodium (Chloride) 50 mls @ 100 mls/hr IV Q6H [facility] Stop: 04/16/17 09:29 Last Admin: 04/16/17 09:19 Dose: 100 mls/hr Acetaminophen 1,000 mg/ Premix 100 mls @ 400 mls/hr IV Q6H [facility] Stop: 04/16/17 16:01 Last Admin: 04/16/17 04:49 Dose: 400 mls/hr Lactated Ringer's (Ringers, Lactated) 500 mls @ 500 mls/hr IV .BOLUS ONE Stop: 04/15/17 16:14 Last Admin: 04/15/17 15:26 Dose: 500 mls/hr Lactated Ringer's (Ringers, Lactated) 500 mls @ 500 mls/hr IV .BOLUS [facility] Last Admin: 04/16/17 03:50 Dose: 500 mls/hr Lactated Ringer's (Ringers, Lactated) 500 mls @ 500 mls/hr IV .BOLUS [facility] Lactated Ringer's (Ringers, Lactated) 500 mls @ 500 mls/hr IV ONETIME ONE Stop: 04/16/17 07:55 Last Admin: 04/16/17 06:59 Dose: 500 mls/hr Dextrose/Lactated Ringer's (Dextrose 5%-Lactated Ringers) 1,000 mls @ 100 mls/ hr IV ASDIRECTED [facility] Last Admin: 04/17/17 04:29 Dose: 100 mls/hr Dextrose/Lactated Ringer's (Dextrose 5%-Lactated Ringers) 1,000 mls @ 175 mls/ hr IV ASDIRECTED [facility] Stop: 04/16/17 17:55 Last Admin: 04/16/17 11:42 Dose: 175 mls/hr Lactated Ringer's (Ringers, Lactated) 500 mls @ 500 mls/hr IV .BOLUS ONE Stop: 04/16/17 13:59 Last Admin: 04/16/17 13:02 Dose: 500 mls/hr Ketamine HCl (Ketalar) 37 mg IV ONETIME ONE Stop: 04/15/17 09:46 Last Admin: 04/15/17 14:44 Dose: Not Given Lidocaine HCl (Xylocaine 2%) 140 mg IVPUSH ONETIME ONE Stop: 04/15/17 09:46 Last Admin: 04/15/17 13:33 Dose: Not Given Lidocaine/Epinephrine (Xylocaine 1% With Epinephrine 1:100,000) Confirm Administered Dose 50 ml .ROUTE .STK-MED ONE Stop: 04/17/17 06:39 Last Admin: 04/17/17 07:34 Dose: 10 ml Meropenem (Merrem) Confirm Administered Dose 500 mg .ROUTE .STK-MED ONE Stop: 04/15/17 09:50 Last Admin: 04/15/17 10:57 Dose: 500 mg Meropenem (Merrem) Confirm Administered Dose 500 mg .ROUTE .STK-MED ONE Stop: 04/17/17 06:39 Last Admin: 04/17/17 07:35 Dose: 500 mg Naloxone HCl (Narcan) 0.1 mg IVPUSH Q5M PRN PRN Reason: RESP RATE LESS THAN 6/MINUTE Naloxone HCl (Narcan) 0.4 mg IV ASDIRECTED PRN PRN Reason: ITCHING Neostigmine Methylsulfate (Neostigmine) Confirm Administered Dose 5 mg .ROUTE .STK-MED ONE Stop: 04/15/17 08:35 Ondansetron HCl (Zofran) Confirm Administered Dose 4 mg .ROUTE .STK-MED ONE Stop: 04/15/17 08:35 Phenylephrine HCl (Pako-Synephrine) Confirm Administered Dose 10 mg .ROUTE .STK- MED ONE Stop: 04/15/17 11:40 Propofol (Diprivan 20 Ml) Confirm Administered Dose 200 mg .ROUTE .STK-MED ONE Stop: 04/15/17 08:35 Propofol (Diprivan 20 Ml) Confirm Administered Dose 200 mg .ROUTE .STK-MED ONE Stop: 04/17/17 06:54 Rocuronium [place] (Zemuron) Confirm Administered Dose 50 mg .ROUTE .STK-MED ONE Stop: 04/15/17 08:35 Rocuronium [place] (Zemuron) Confirm Administered Dose 50 mg .ROUTE .STK-MED ONE Stop: 04/15/17 11:45 Succinylcholine Chloride (Quelicin) Confirm Administered Dose 200 mg .ROUTE .STK -MED ONE Stop: 04/15/17 08:35 - Exam General: Alert, Oriented HEENT: Pupils Equal, Pupils Reactive, EOMI, Mucous Membr. Moist/[place] Lungs: Clear to Auscultation, Normal Respiratory Effort Cardiovascular: Regular Rate, Regular Rhythm - Problem List Review Problem List Initiated/Reviewed/Updated: Yes - Plan Plan:: Assessment/Plan: #1. HTN: Good control. #2. ASHD: Stable presently. #3. S/P colon resection. Stable presently. #4. Atrial Fib. Need to restart coumadin as soon as possible.
[2017-04-17] MEDS: Tamsulosin 0.4 MG Cap.ER PO SCH (20:32)
[2017-04-18] MEDS ORDERED: Benzocaine/Cetylpyridinium/Menthol Lozenge MUCMEM PRN (02:29)
[2017-04-18] MEDS: Magnesium Sulfate/Water 2 GM in Premix Bag 1 BAG IV SCH ×3 (03:31→16:53)
[2017-04-18] MEDS: Dextrose 5%-Lactated Ringers 1,000 ML IV SCH (03:32)
[2017-04-18] MEDS: Acetaminophen 325 MG Tab PO SCH ×4 (03:37→21:24)
--- NOTE | 2017-04-18 08:25 | PN ---
DATE OF SERVICE: 04/18/2017 SUBJECTIVE: Jeremy had his delayed primary closure yesterday. He is up sitting in the chair. His pain is controlled. He has no questions or concerns. He states he is feeling better. Blood pressure has been low at 80/58, 84/51, 97/53, 88/56, and 106/55; and has normalized now this morning to 114/46. Labs this morning; hemoglobin 10.9, potassium is 3.8, glucose 140, and phosphorus is 1.8. Oral intake 1220 mL. He has had one bowel movement. ALVINA drain put out 5 mL. Urinary output 4106. REVIEW OF SYSTEMS: Remainder of review of systems negative for any pertinent positives and negatives. OBJECTIVE: GENERAL: Jeremy Correia is a 77-year-old male. He is alert and orientated, sitting up in the chair. VITAL SIGNS: TPR 97.7, 80, 18, and blood pressure 114/46. HEENT: Negative. NECK: Supple. HEART: Regular rate and rhythm. LUNGS: Clear. ABDOMEN: Dressings dry and intact. Abdominal binder is on. EXTREMITIES: Without peripheral edema. ASSESSMENT: 1. Delayed primary closure on 03/17/2017. 2. Exploratory laparotomy with intraoperative colonoscopy, rectosigmoid resection with coloproctostomy, and placement of Vicryl mesh for sessile polyp located in the sigmoid colon. Date of surgery 03/15/2017, Richar Samaniego MD. PLAN: 1. Check CBC, CMP, mag, and phos in a.m. 2. Check PT/INR baseline today. 3. Lovenox 40 mg subcu daily. 4. Decrease lisinopril to 10 mg p.o. daily. 5. Potassium phosphate 75 millimoles IV today. 6. Coumadin 10 mg p.o. one time today. 7. PT and INR daily. 8. Discontinue pulse ox. 9. Discontinue telemetry. 10.Good pulmonary toilet. 11.We will evaluate p.r.n. or in a.m. Debra Fuentes PA-C /[id number]
[2017-04-18] MEDS: Enoxaparin 40 MG/0.4 ML Syringe SUBCUT SCH (08:39)
[2017-04-18] MEDS: Magnesium Hydroxide 400 MG/5 ML Susp 30 ML Cup PO SCH ×2 (08:40→21:26)
[2017-04-18] MEDS: Bisacodyl 5 MG Tab PO SCH ×2 (08:40→21:27)
[2017-04-18] MEDS: Lisinopril 10 MG Tab PO SCH (08:40)
[2017-04-18] MEDS: Celecoxib 200 MG Cap PO SCH (08:41)
[2017-04-18] MEDS: VERIFY SCOPOLAMINE PATCH TOP SCH (08:42)
[2017-04-18] MEDS: Hydrochlorothiazide 25 MG Tab PO SCH (08:42)
[2017-04-18] MEDS ORDERED: Enoxaparin 30 MG/0.3 ML Syringe SUBCUT SCH (09:00)
[2017-04-18] MEDS: Potassium Phosphates 25 MMOLE in Sodium Chloride 0.9% 250 ML IV SCH ×3 (10:06→21:08)
[2017-04-18] MEDS ORDERED: Warfarin 5 MG Tab PO ONE (14:00)
--- NOTE | 2017-04-18 15:34 | PN ---
DATE OF SERVICE: 04/17/2017 The patient has been afebrile with stable vital signs. Urine output has now been quite good. We will recheck some labs in the morning in terms of his creatinine and such. Otherwise, oral intake was fairly good. He is passing a little bit of flatus. No bowel movement as of yet. The patient had a closure of the abdominal incision without incident today. We will continue the stimulation of the bowel function. The epidural catheter is coming out. At this point, we will have him on Celebrex and Tylenol. With the epidural, I will add tramadol on a p.r.n. basis. His Toribio catheter came out as well. He has been on Flomax. He has had problems with urinary retention in the past start urinating. Richar Samaniego MD /[id number]
--- NOTE | 2017-04-18 15:37 | OR ---
DATE OF PROCEDURE: 04/17/2017 PREOPERATIVE DIAGNOSIS: Open abdominal incision. POSTOPERATIVE DIAGNOSIS: Open abdominal incision. OPERATIVE PROCEDURE: Delayed primary closure of open abdominal incision. ANESTHESIA: IV sedation. INDICATION FOR PROCEDURE: The patient is 48 hours status post left colon resection, at which time the skin and subcutaneous tissue were felt to be at high risk for wound infection if left in place. Therefore, it was packed open for a planned delayed primary closure at this time. Potential risks including bleeding, infection, aspiration of gastric contents during the procedure and such were reviewed, and the patient wishes to proceed. DETAILS OF PROCEDURE: The patient was taken to the operating room and placed in the supine position sitting up roughly 30 degrees to minimize aspiration risk. The operative dressing was taken down where the patient received some IV sedation and the incision was found to be clean. The wound was then prepped and draped, anesthetized with 1% lidocaine mixed with Marcaine and irrigated with meropenem-containing saline solution. A 10-Armenian round Mike- Larson drain was then placed through a stab wound along the inferior aspect of the incision and draped across the bed of the incision. Incision was then closed with a deep layer of 3- 0 Vicryl stitch and some subdermal 4-0 Vicryl stitch and then joaquin for the skin. Dressing was applied. The patient was taken to the recovery room in satisfactory condition. Richar Samaniego MD /[id number]
[2017-04-18] MEDS: Pantoprazole 40 MG Vial IV SCH (16:53)
[2017-04-18] MEDS: Tamsulosin 0.4 MG Cap.ER PO SCH (21:26)
[2017-04-19] MEDS: traMADol 50 MG Tab PO PRN ×2 (00:45→22:08)
[2017-04-19] MEDS: Magnesium Sulfate/Water 2 GM in Premix Bag 1 BAG IV SCH ×2 (00:46→05:11)
[2017-04-19] MEDS: Acetaminophen 325 MG Tab PO SCH ×4 (05:11→22:07)
[2017-04-19] MEDS: Enoxaparin 40 MG/0.4 ML Syringe SUBCUT SCH (10:43)
[2017-04-19] MEDS: Lisinopril 10 MG Tab PO SCH (10:43)
[2017-04-19] MEDS: Celecoxib 200 MG Cap PO SCH (10:44)
[2017-04-19] MEDS: Hydrochlorothiazide 25 MG Tab PO SCH (10:44)
[2017-04-19] MEDS: Magnesium Hydroxide 400 MG/5 ML Susp 30 ML Cup PO SCH ×2 (10:45→22:07)
[2017-04-19] MEDS: VERIFY SCOPOLAMINE PATCH TOP SCH (10:46)
[2017-04-19] MEDS ORDERED: Warfarin 2.5 MG Tab PO SCH (13:00)
[2017-04-19] MEDS: Pantoprazole 40 MG Vial IV SCH (14:48)
[2017-04-19] MEDS: Tamsulosin 0.4 MG Cap.ER PO SCH (22:08)
[2017-04-20] MEDS: Acetaminophen 325 MG Tab PO SCH ×5 (04:04→21:33)
[2017-04-20] MEDS: Lisinopril 10 MG Tab PO SCH (10:14)
[2017-04-20] MEDS: Celecoxib 200 MG Cap PO SCH (10:15)
[2017-04-20] MEDS: Hydrochlorothiazide 25 MG Tab PO SCH (10:15)
[2017-04-20] MEDS: Magnesium Hydroxide 400 MG/5 ML Susp 30 ML Cup PO SCH ×2 (10:15→21:33)
[2017-04-20] MEDS: Enoxaparin 40 MG/0.4 ML Syringe SUBCUT SCH (10:16)
[2017-04-20] MEDS: VERIFY SCOPOLAMINE PATCH TOP SCH (10:17)
--- NOTE | 2017-04-20 11:28 | PN ---
DATE OF SERVICE: 04/20/2017 The patient has been afebrile with stable vital signs. He continues to move his bowels satisfactorily. Pro-time is up in the 1.6 range and we will give him his usual 5 mg Coumadin today and we will await the discharge to the [facility] tomorrow. He will have his drain pulled at that time. The pathology report came back showing a very early invasive carcinoma nodes all negative. He will not need any additional treatment other than surveillance colonoscopy regarding the cancer. Richar Samaniego MD /[id number]
[2017-04-20] MEDS ORDERED: Warfarin 5 MG Tab PO SCH (13:00)
[2017-04-20] MEDS: Pantoprazole 40 MG Vial IV SCH (15:17)
[2017-04-20] MEDS: Tamsulosin 0.4 MG Cap.ER PO SCH (21:34)
[2017-04-21] MEDS: traMADol 50 MG Tab PO PRN (01:17)
[2017-04-21] MEDS: Acetaminophen 325 MG Tab PO SCH ×2 (04:17→10:07)
[2017-04-21 07:08] VITALS: BP 129/74
--- NOTE | 2017-04-21 08:04 | DISCH ---
ADMISSION DIAGNOSES: 1. Sessile polyp in the sigmoid colon (tubular adenoma of colon). 2. Unspecified essential hypertension. 3. Atrial fibrillation. 4. Peripheral nerve disease. 5. Low back pain. DISCHARGE DIAGNOSES: 1. Exploratory laparotomy with;. a. Intraoperative flexible sigmoidoscopy to identify the location of the mass. b. Rectosigmoid resection with coloproctostomy. c. Placement of Vicryl mesh to displace pelvic and abdominal wall from underlining small bowel and other viscera for sessile polyp located in the midsigmoid colon and inability to palpate location of the mass. Date of surgery 04/15/2017. Surgeon, Richar Samaniego MD. 2. Delayed primary closure of open abdominal incision, 04/17/2017. HISTORY: Jeremy Correia is a 77-year-old male presenting with a recently- identified sessile mass located at 60 cm. After preoperative evaluation and discussion of possible risks and possible complications, he wished to proceed with surgical procedure. HOSPITAL COURSE: Jeremy had his surgery on 04/15/2017. He had no operative complications. On 04/17/2017, he had delayed primary closure. He was started on a clear liquid diet. He did start having bowel movements. He was bridged with Lovenox and started on Coumadin. He was able to be discharged to [facility] on 04/21/2017 with no complications. Last labs; PT 20.7 and INR is 1.88. PHYSICAL EXAMINATION: GENERAL: Jeremy Correia is a pleasant 77-year-old male. VITAL SIGNS: Height is 5 feet 10.87 inches. Weight is 254 pounds. TPR is 97, 76, 18, and blood pressure 129/74. HEENT: Negative. NECK: Supple. HEART: Regular rate and rhythm. LUNGS: Clear. ABDOMEN: Travis, incision looks good. 4x4s over ALVINA drain. Abdominal binder is on. EXTREMITIES: Revealed trace peripheral edema. DISPOSITION: Discharged to home. CONDITION: Stable and improving. FOLLOWUP: With Debra Fuentes PA-C, on 04/28/2017 at 10 a.m. He will have a PT/ INR checked at that time. DISCHARGE MEDICATIONS: Home medications; 1. Tylenol 650 mg oral q.6 hours scheduled for 2 weeks and then p.r.n. 2. Celebrex 200 mg p.o. daily, #14. 3. Senna Plus 2 tabs oral at bedtime, #60. 4. Flomax 0.4 mg oral at bedtime, #30. 5. Tramadol 50 mg 1 to 2 q.6 hours p.r.n. surgical pain, #50. 6. He is to resume his hydrochlorothiazide 25 mg oral daily lisinopril 20 mg oral daily, and warfarin 5 mg oral daily. DISCHARGE DIET: Usual diet as tolerated. Drink 8 to 10 glasses of water a day. ACTIVITY: No lifting greater than 10 pounds for 2 weeks[address] Driving, do not drive for 2 weeks. Shower/bathing, may shower. DISCHARGE INSTRUCTIONS: Notify provider if any fever, increased pain, nausea, or vomiting. Wound incision care, keep site clean and dry. Wear abdominal binder for 6 weeks and then as tolerated. Special instruction; use incentive spirometer 10 times every hour while awake for 1 week. 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 Richar Samaniego MD, recommends colonoscopy in 6 months. The time of next colonoscopy will be determined after his 6-month followup. [facility]
[2017-04-21] MEDS: Magnesium Hydroxide 400 MG/5 ML Susp 30 ML Cup PO SCH (08:40)
[2017-04-21] MEDS: Celecoxib 200 MG Cap PO SCH (08:40)
[2017-04-21] MEDS: Lisinopril 10 MG Tab PO SCH (08:40)
[2017-04-21] MEDS: Enoxaparin 40 MG/0.4 ML Syringe SUBCUT SCH (08:41)
[2017-04-21] MEDS: Hydrochlorothiazide 25 MG Tab PO SCH (08:41)
[2017-04-21] MEDS: VERIFY SCOPOLAMINE PATCH TOP SCH (08:42)
--- NOTE | 2017-04-21 08:46 | PN ---
DATE OF SERVICE: 04/19/2017 The patient has been afebrile with stable vital signs. He is starting to move his bowels, and pain control, with the addition of the tramadol, is satisfactory. His pro time today remains subtherapeutic, and we will give him 7.5 mg of Coumadin today and continue the low- dose Lovenox. He is going to be discharged to [facility] for a period of rehab on Friday. Richar Samaniego MD /[id number]
[2017-04-21] MEDS ORDERED: Pantoprazole 40 MG Tab.CR PO SCH (11:30)
== END 2017-04-21 11:00 | DRG 331 ==
LOC: JP.MS 07:31 → JP.SDS 07:31 → JP.2SS 12:30 → EDSTATUS 13:30
PROVIDERS: ADMIT Surgery; ATTEND Surgery
PROC: 0DTP0ZZ Resection of Rectum, Open Approach (ICD-10-PCS; principal; 2017-04-15)
PROC: 0D1M0ZP Bypass Descending Colon to Rectum, Open Approach (ICD-10-PCS; 2017-04-15)
PROC: 0DTN0ZZ Resection of Sigmoid Colon, Open Approach (ICD-10-PCS; 2017-04-15)
PROC: 0DJD8ZZ Inspection of Lower Intestinal Tract, Via Natural or Artificial Opening Endoscopic (ICD-10-PCS; 2017-04-15)
PROC: 0WQF0ZZ Repair Abdominal Wall, Open Approach (ICD-10-PCS; 2017-04-17)
PROC: 3E0M05Z Introduction of Adhesion Barrier into Peritoneal Cavity, Open Approach (ICD-10-PCS; 2017-04-17)
DX: C19 Malignant neoplasm of rectosigmoid junction (principal); Z48.1 Encounter for planned postprocedural wound closure; I10 Essential (primary) hypertension; I48.91 Unspecified atrial fibrillation; G60.9 Hereditary and idiopathic neuropathy, unspecified; Z79.01 Long term (current) use of anticoagulants; I25.10 Atherosclerotic heart disease of native coronary artery without angina pectoris; M54.5 Low back pain; Z88.0 Allergy status to penicillin; Z88.2 Allergy status to sulfonamides; K57.90 Diverticulosis of intestine, part unspecified, without perforation or abscess without bleeding
CPT/HCPCS: 36415; 80048; 80053; 82378; 83735; 83880; 84100; 85027; 85610; 88309; 88341; A9270-GY; C1781; C9113; J0131; J0330; J0694; J1100; J1650; J1940; J2001; J2185; J2370; J2405; J2704; J2710; J3010; J3475; J3490; J7042; J7050; J7120

== ENCOUNTER 2018-11-09 07:28 | Inpatient (IN) | payer MEDICAID, MEDICARE ==
[~2018-11-09 07:28] MED LIST changes: +Povidone-Iodine 10% Soln 118.25 ML Bottle ONE; -Propofol 200 MG/20 ML SDV ONE; -Sodium Chloride 0.9% 1,000 ML IV SCH; -fentaNYL 100 MCG/2 ML SDV ONE
[2018-11-09] MEDS ORDERED: Gabapentin 300 MG Cap PO ONE (07:45)
[2018-11-09] MEDS ORDERED: Scopolamine 1.5 MG Transdermal Patch TOP ONE (07:45)
[2018-11-09] MEDS: Nozin Nasal Sanitizer NASBOTH SCH ×3 (08:16→20:19)
[2018-11-09] MEDS: Lactated Ringers 1,000 ML IV SCH ×2 (08:17→19:15)
[2018-11-09] MEDS ORDERED: Clindamycin Phosphate 900 MG in Sodium Chloride 0.9% 100 ML IV ONE (09:00)
[2018-11-09] MEDS ORDERED: fentaNYL 100 MCG/2 ML SDV ONE (09:56)
[2018-11-09] MEDS ORDERED: Propofol 200 MG/20 ML SDV ONE ×2 (09:56→11:25)
[2018-11-09] MEDS ORDERED: Midazolam 1 MG/ML 2 ML SDV ONE (09:56)
[2018-11-09] MEDS ORDERED: ePHEDrine 50 MG/ML SDV ONE (11:04)
[2018-11-09] MEDS ORDERED: Lactated Ringers 1,000 ML ONE (11:23)
[2018-11-09] MEDS ORDERED: Acetaminophen/HYDROcodone 325-5 MG Tab PO PRN ×2 (13:18→13:30)
[2018-11-09] MEDS ORDERED: Acetaminophen 325 MG Tab PO PRN ×2 (13:18→13:30)
[2018-11-09] MEDS ORDERED: Acetaminophen/oxyCODONE 325-5 MG Tab PO PRN (13:24)
[2018-11-09] MEDS ORDERED: Morphine 2 MG/ML Syringe IVPUSH PRN ×2 (13:26→13:30)
[2018-11-09] MEDS ORDERED: NITROGLYCERIN 0.3 MG SL SCH ×2 (13:30)
[2018-11-09] MEDS ORDERED: PSEUDOEPHEDRINE PO SCH (13:30)
[2018-11-09] MEDS ORDERED: LORATADINE PO SCH (13:30)
[2018-11-09] MEDS ORDERED: Nitroglycerin 0.4 MG Tab.SL SL PRN (13:45)
--- NOTE | 2018-11-09 15:19 | CR ---
Pelvis 1V or 2V CLINICAL HISTORY: Hip arthroplasty FINDINGS: Patient has had recent total left hip arthroplasty. Components appear well seated. IMPRESSION: Left hip arthroplasty appears intact
[2018-11-09] MEDS: Acetaminophen/oxyCODONE 325-5 MG Tab PO PRN (17:32)
[2018-11-09] MEDS ORDERED: Acetaminophen/oxyCODONE 325-5 MG Tab PO ONE (19:57)
[2018-11-09] MEDS ORDERED: Sodium Chloride 0.9% 500 ML IV ONE (19:57)
[2018-11-09] MEDS: Tamsulosin 0.4 MG Cap.ER PO SCH (20:17)
[2018-11-09] MEDS: levETIRAcetam 250 MG Tab PO SCH (20:18)
[2018-11-09] MEDS ORDERED: Non-Formulary Medication 1 Each (Levetiracetam [Keppra] 500 MG) PO SCH ×2 (21:00)
[2018-11-09] MEDS ORDERED: Nozin Nasal Sanitizer NASBOTH SCH (21:00)
[2018-11-09] MEDS ORDERED: Tamsulosin 0.4 MG Cap.ER PO SCH (21:00)
[2018-11-10] MEDS: Acetaminophen/oxyCODONE 325-5 MG Tab PO PRN ×3 (02:24→17:36)
[2018-11-10] MEDS ORDERED: Benzocaine/Cetylpyridinium/Menthol Lozenge MUCMEM PRN (02:25)
[2018-11-10] MEDS: Pantoprazole 40 MG Tab.CR PO SCH (07:31)
[2018-11-10] MEDS: Lactated Ringers 1,000 ML IV SCH ×2 (08:50→23:17)
[2018-11-10] MEDS: levETIRAcetam 250 MG Tab PO SCH ×2 (08:52→21:09)
[2018-11-10] MEDS: Nozin Nasal Sanitizer NASBOTH SCH ×2 (08:52→21:06)
[2018-11-10] MEDS: Enoxaparin 30 MG/0.3 ML Syringe SUBCUT SCH (08:52)
[2018-11-10] MEDS: Hydrochlorothiazide 25 MG Tab PO SCH (08:53)
[2018-11-10] MEDS: Lisinopril 20 MG Tab PO SCH (08:53)
[2018-11-10] MEDS: amLODIPine 5 MG Tab PO SCH (08:54)
[2018-11-10] MEDS ORDERED: amLODIPine 5 MG Tab PO SCH (09:00)
[2018-11-10] MEDS ORDERED: Enoxaparin 30 MG/0.3 ML Syringe SUBCUT SCH (09:00)
[2018-11-10] MEDS ORDERED: Hydrochlorothiazide 25 MG Tab PO SCH (09:00)
[2018-11-10] MEDS ORDERED: Pantoprazole 40 MG Tab.CR PO SCH (09:00)
[2018-11-10] MEDS ORDERED: Lisinopril 20 MG Tab PO SCH (09:00)
[2018-11-10] MEDS: Clindamycin Phosphate 900 MG in Sodium Chloride 0.9% 100 ML IV SCH ×2 (13:21→21:09)
[2018-11-10] MEDS: Warfarin 5 MG Tab PO SCH (13:21)
[2018-11-10] MEDS: Tamsulosin 0.4 MG Cap.ER PO SCH (21:09)
[2018-11-11] MEDS: Acetaminophen/oxyCODONE 325-5 MG Tab PO PRN ×3 (02:02→14:39)
[2018-11-11] MEDS: Clindamycin Phosphate 900 MG in Sodium Chloride 0.9% 100 ML IV SCH (05:51)
[2018-11-11] MEDS: Pantoprazole 40 MG Tab.CR PO SCH (08:28)
[2018-11-11] MEDS: Nozin Nasal Sanitizer NASBOTH SCH ×2 (08:28→21:44)
[2018-11-11] MEDS: Hydrochlorothiazide 25 MG Tab PO SCH (08:29)
[2018-11-11] MEDS: amLODIPine 5 MG Tab PO SCH (08:29)
[2018-11-11] MEDS: Enoxaparin 30 MG/0.3 ML Syringe SUBCUT SCH (08:29)
[2018-11-11] MEDS: levETIRAcetam 250 MG Tab PO SCH ×2 (08:29→21:46)
[2018-11-11] MEDS: Lisinopril 20 MG Tab PO SCH (08:30)
--- NOTE | 2018-11-11 10:05 | PCM.SURGPN ---
- General Info Date of Service: 11/10/18 Date of Surgery/Procedure: 11/09/18 POD#: 1 Post-Op Diagnosis: OA left hip Functional Status: Reports: Tolerating Diet - Review of Systems General: Reports: No Symptoms HEENT: Reports: No Symptoms Pulmonary: Reports: No Symptoms Cardiovascular: Reports: No Symptoms Gastrointestinal: Reports: No Symptoms Genitourinary: Reports: No Symptoms Skin: Reports: No Symptoms Neurological: Reports: No Symptoms Psychiatric: Reports: No Symptoms - Patient Data Vitals - Most Recent: Last Vital Signs Temp 37.2 C 11/11/18 07:00 Pulse 82 11/11/18 07:00 Resp 18 11/11/18 07:00 BP 118/50 L 11/11/18 08:30 Pulse Ox 94 L 11/11/18 07:00 Weight - Most Recent: 122.47 kg I&O - Last 24 Hours: Intake & Output 11/10/18 11/11/18 11/11/18 22:59 06:59 14:59 Intake Total 1402 1292 Output Total 800 1000 Balance 602 292 Med Orders - Current: Current Medications Acetaminophen (Tylenol) 650 mg PO Q4H PRN PRN Reason: Pain/Fever Hydrocodone Bitart/Acetaminophen ([place] 325-5 Mg) 1 tab PO Q3H PRN PRN Reason: Pain (mild 1-3) Amlodipine Besylate (Norvasc) 5 mg PO DAILY [facility] Last Admin: 11/11/18 08:29 Dose: 5 mg Bandage/Support Products ( Nasal Stave Jointer) 1 applic NASBOTH BID [facility] Stop: 11/16/18 21:01 Last Admin: 11/11/18 08:28 Dose: 1 applic Benzocaine/Menthol (Cepacol Sore Throat) 1 lozenge MUCMEM Q2H PRN PRN Reason: Sore Throat Last Admin: 11/10/18 04:48 Dose: 1 jair Enoxaparin Sodium (Lovenox) 30 mg SUBCUT DAILY [facility] Last Admin: 11/11/18 08:29 Dose: 30 mg Hydrochlorothiazide (Hydrochlorothiazide) 25 mg PO DAILY [facility] Last Admin: 11/11/18 08:29 Dose: 25 mg Lactated Ringer's (Ringers, Lactated) 1,000 mls @ 75 mls/hr IV ASDIRECTED [facility] Last Admin: 11/10/18 23:17 Dose: 75 mls/hr Levetiracetam (Keppra) 500 mg PO BID [facility] Last Admin: 11/11/18 08:29 Dose: 500 mg Lisinopril (Prinivil) 40 mg PO DAILY [facility] Last Admin: 11/11/18 08:30 Dose: 40 mg Morphine Sulfate (Morphine) 2 mg IVPUSH Q1H PRN PRN Reason: Pain (severe 7-10) Last Admin: 11/09/18 19:13 Dose: 2 mg Nitroglycerin (Nitrostat) 0.4 mg SL ASDIRECTED PRN PRN Reason: CHEST PAIN Non-Formulary Medication (Loratadine/Pseudoephedrine [Claritin-D 24 Hour Tablet] ) 1 each PO ASDIRECTED [facility] Oxycodone/Acetaminophen (Percocet 325-5 Mg) 1 - 2 tab PO Q6H PRN PRN Reason: Pain (severe 7-10) Last Admin: 11/11/18 08:26 Dose: 1 tab Pantoprazole Sodium (Protonix) 40 mg PO ACBREAKFAST [facility] Last Admin: 11/11/18 08:28 Dose: 40 mg Senna/Docusate Sodium (Senna Plus) 2 tab PO BEDTIME [facility] Last Admin: 11/10/18 21:10 Dose: 2 tab Tamsulosin HCl (Flomax) 0.4 mg PO BEDTIME [facility] Last Admin: 11/10/18 21:09 Dose: 0.4 mg Warfarin Sodium (Coumadin) 5 mg PO DAILY@1300 [facility] Last Admin: 11/10/18 13:21 Dose: 5 mg Discontinued Medications Acetaminophen (Tylenol) 650 mg PO Q4H PRN PRN Reason: Pain/Fever Hydrocodone Bitart/Acetaminophen ([place] 325-5 Mg) 1 tab PO Q3H PRN PRN Reason: Pain (mild 1-3) Amlodipine Besylate (Norvasc) 5 mg PO DAILY [facility] Bandage/Support Products ( Nasal Stave Jointer) 1 applic NASBOTH BID [facility] Last Admin: 11/09/18 14:57 Dose: Not Given Bandage/Support Products ( Nasal Stave Jointer) 1 applic NASBOTH BID [facility] Stop: 11/16/18 21:01 Enoxaparin Sodium (Lovenox) 30 mg SUBCUT DAILY [facility] Ephedrine Sulfate (Ephedrine Sulfate) Confirm Administered Dose 50 mg .ROUTE .K-MED ONE Stop: 11/09/18 11:05 Fentanyl (Sublimaze) Confirm Administered Dose 100 mcg .ROUTE .[facility]-MED ONE Stop: 11/09/18 09:57 Gabapentin (Neurontin) 300 mg PO ONETIME ONE Stop: 11/09/18 07:46 Last Admin: 11/09/18 08:16 Dose: 300 mg Hydrochlorothiazide (Hydrochlorothiazide) 25 mg PO DAILY [facility] Clindamycin Phosphate 900 mg/ (Sodium Chloride) 106 mls @ 200 mls/hr IV ONETIME ONE Stop: 11/09/18 09:31 Last Admin: 11/09/18 10:19 Dose: 200 mls/hr Lactated Ringer's (Ringers, Lactated) Confirm Administered Dose 1,000 mls @ as directed .ROUTE .[facility]-MED ONE Stop: 11/09/18 11:24 Sodium Chloride (Normal Saline) 500 mls @ 500 mls/hr IV .BOLUS ONE Stop: 11/09/18 20:56 Last Admin: 11/09/18 20:15 Dose: 500 mls/hr Clindamycin Phosphate 900 mg/ (Sodium Chloride) 106 mls @ 200 mls/hr IV Q8H [facility] Stop: 11/11/18 05:32 Last Admin: 11/11/18 05:51 Dose: 200 mls/hr Lisinopril (Prinivil) 40 mg PO DAILY [facility] Midazolam HCl (Versed 1 Mg/Ml) Confirm Administered Dose 2 mg .ROUTE .[facility]-MED ONE Stop: 11/09/18 09:57 Morphine Sulfate (Morphine) 2 mg IVPUSH Q1H PRN PRN Reason: Pain (severe 7-10) Non-Formulary Medication (Levetiracetam [Keppra]) 500 mg PO BID [facility] Non-Formulary Medication (Loratadine/Pseudoephedrine [Claritin-D 24 Hour Tablet] ) 1 each PO ASDIRECTED [facility] Non-Formulary Medication (Nitroglycerin [Nitroglycerin]) 0.3 mg SL ASDIRECTED [facility] Oxycodone/Acetaminophen (Percocet 325-5 Mg) 0 tab PO Q6H PRN PRN Reason: Pain (severe 7-10) Oxycodone/Acetaminophen (Percocet 325-5 Mg) 2 tab PO ONETIME ONE Stop: 11/09/18 19:58 Last Admin: 11/09/18 20:14 Dose: 2 tab Pantoprazole Sodium (Protonix) 40 mg PO DAILY [facility] Povidone Iodine (Betadine 10% Soln) Confirm Administered Dose 1 ml .ROUTE .STK- MED ONE Stop: 11/09/18 06:40 Last Admin: 11/09/18 10:00 Dose: 60 ml Propofol (Diprivan 20 Ml) Confirm Administered Dose 200 mg .ROUTE .STK-MED ONE Stop: 11/09/18 09:57 Propofol (Diprivan 20 Ml) Confirm Administered Dose 200 mg .ROUTE .STK-MED ONE Stop: 11/09/18 11:26 Scopolamine (Transderm-Scop) 1.5 mg TOP ONETIME ONE Stop: 11/09/18 07:46 Last Admin: 11/09/18 08:16 Dose: 1.5 mg Senna/Docusate Sodium (Senna Plus) 2 tab PO BEDTIME [facility] Tamsulosin HCl (Flomax) 0.4 mg PO BEDTIME [facility] - Exam Wound/Incisions: Dressing Dry and Intact General: Alert, Oriented HEENT: Pupils Equal Neck: Supple Lungs: Clear to Auscultation, Normal Respiratory Effort Cardiovascular: Regular Rate, Regular Rhythm GI/Abdominal Exam: Normal Bowel Sounds, Soft, Non-Tender, No Organomegaly, No Distention, No Abnormal Bruit, No Mass, Pelvis Stable Skin: Warm, Dry, Intact Neurological: No New Focal Deficit Psy/Mental Status: Alert, Normal Affect, Normal Mood - Problem List & Annotations (1) Status post total hip replacement, left SNOMED Code(s): 844774878776, 342762806866 Code(s): Z96.642 - PRESENCE OF LEFT ARTIFICIAL HIP JOINT Status: Acute Current Visit: Yes (2) Anemia following surgery SNOMED Code(s): 301967710, 170563535 Code(s): D64.9 - ANEMIA, UNSPECIFIED Status: Acute Current Visit: Yes - Problem List Review Problem List Initiated/Reviewed/Updated: Yes - My Orders Last 24 Hours: Active Orders 24 hr Category Date Time Status DC Toribio Catheter [Urinary Catheter Removal] [RC] Per Care 11/11/18 09:58 Ordered Unit Routine Dietary Supplements [RC] BIDMEALS Care 11/10/18 12:14 Active INR,PT,PROTHROMBIN TIME [COAG] AM Lab 11/12/18 05:11 Ordered INR,PT,PROTHROMBIN TIME [COAG] AM Lab 11/13/18 05:11 Ordered Enoxaparin [Lovenox] Med 11/10/18 09:00 Active 30 mg SUBCUT DAILY Lisinopril [Prinivil] Med 11/10/18 09:00 Active 40 mg PO DAILY Warfarin [Coumadin] Med 11/10/18 13:00 Active 5 mg PO DAILY@1300 amLODIPine [Norvasc] Med 11/10/18 09:00 Active 5 mg PO DAILY hydroCHLOROthiazide Med 11/10/18 09:00 Active 25 mg PO DAILY Convert IV to Saline Lock [OM.PC] Routine Oth 11/11/18 09:59 Ordered Medication Orders Acetaminophen (Tylenol) 650 mg PO Q4H PRN PRN Reason: Pain/Fever Hydrocodone Bitart/Acetaminophen ([place] 325-5 Mg) 1 tab PO Q3H PRN PRN Reason: Pain (mild 1-3) Amlodipine Besylate (Norvasc) 5 mg PO DAILY [facility] Last Admin: 11/11/18 08:29 Dose: 5 mg Admin: 11/10/18 08:54 Dose: 5 mg Bandage/Support Products ( Nasal Stave Jointer) 1 applic NASBOTH BID [facility] Stop: 11/16/18 21:01 Last Admin: 11/11/18 08:28 Dose: 1 applic Admin: 11/10/18 21:06 Dose: 1 applic Admin: 11/10/18 08:52 Dose: 1 applic Admin: 11/09/18 20:19 Dose: 1 applic Benzocaine/Menthol (Cepacol Sore Throat) 1 lozenge MUCMEM Q2H PRN PRN Reason: Sore Throat Last Admin: 11/10/18 04:48 Dose: 1 jair Enoxaparin Sodium (Lovenox) 30 mg SUBCUT DAILY [facility] Last Admin: 11/11/18 08:29 Dose: 30 mg Admin: 11/10/18 08:52 Dose: 30 mg Hydrochlorothiazide (Hydrochlorothiazide) 25 mg PO DAILY [facility] Last Admin: 11/11/18 08:29 Dose: 25 mg Admin: 11/10/18 08:53 Dose: 25 mg Lactated Ringer's (Ringers, Lactated) 1,000 mls @ 75 mls/hr IV ASDIRECTED [facility] Last Admin: 11/10/18 23:17 Dose: 75 mls/hr Infusion: 11/10/18 22:10 Dose: 75 mls/hr Admin: 11/10/18 08:50 Dose: 75 mls/hr Infusion: 11/10/18 08:35 Dose: 75 mls/hr Admin: 11/09/18 19:15 Dose: 75 mls/hr Infusion: 11/09/18 19:15 Dose: 75 mls/hr Admin: 11/09/18 08:17 Dose: 75 mls/hr Levetiracetam (Keppra) 500 mg PO BID [facility] Last Admin: 11/11/18 08:29 Dose: 500 mg Admin: 11/10/18 21:09 Dose: 500 mg Admin: 11/10/18 08:52 Dose: 500 mg Admin: 11/09/18 20:18 Dose: 500 mg Lisinopril (Prinivil) 40 mg PO DAILY [facility] Last Admin: 11/11/18 08:30 Dose: 40 mg Admin: 11/10/18 08:53 Dose: 40 mg Morphine Sulfate (Morphine) 2 mg IVPUSH Q1H PRN PRN Reason: Pain (severe 7-10) Last Admin: 11/09/18 19:13 Dose: 2 mg Nitroglycerin (Nitrostat) 0.4 mg SL ASDIRECTED PRN PRN Reason: CHEST PAIN Non-Formulary Medication (Loratadine/Pseudoephedrine [Claritin-D 24 Hour Tablet] ) 1 each PO ASDIRECTED [facility] Oxycodone/Acetaminophen (Percocet 325-5 Mg) 1 - 2 tab PO Q6H PRN PRN Reason: Pain (severe 7-10) Last Admin: 11/11/18 08:26 Dose: 1 tab Admin: 11/11/18 02:02 Dose: 1 tab Admin: 11/10/18 17:36 Dose: 2 tab Admin: 11/10/18 07:58 Dose: 2 tab Admin: 11/10/18 02:24 Dose: 2 tab Admin: 11/09/18 17:32 Dose: 2 tab Pantoprazole Sodium (Protonix) 40 mg PO ACBREAKFAST [facility] Last Admin: 11/11/18 08:28 Dose: 40 mg Admin: 11/10/18 07:31 Dose: 40 mg Senna/Docusate Sodium (Senna Plus) 2 tab PO BEDTIME [facility] Last Admin: 11/10/18 21:10 Dose: 2 tab Admin: 11/09/18 20:18 Dose: 2 tab Tamsulosin HCl (Flomax) 0.4 mg PO BEDTIME [facility] Last Admin: 11/10/18 21:09 Dose: 0.4 mg Admin: 11/09/18 20:17 Dose: 0.4 mg Warfarin Sodium (Coumadin) 5 mg PO DAILY@1300 [facility] Last Admin: 11/10/18 13:21 Dose: 5 mg - Assessment Assessment (Free Text/Narrative):: Hypotensive last night, responded to fluid bolus, pain not well controlled, has not been up yet this morning. H/H ok. - Plan Plan (Free Text/Narrative):: Try to get up with PT this afternoon, start back on Coumadin, bridge with Lovenox
--- NOTE | 2018-11-11 10:13 | PCM.SURGPN ---
- General Info Date of Service: 11/11/18 Date of Surgery/Procedure: 11/09/18 POD#: 2 Post-Op Diagnosis: OA left hip, S/P left total hip Functional Status: Reports: Tolerating Diet - Review of Systems General: Reports: No Symptoms HEENT: Reports: No Symptoms Pulmonary: Reports: No Symptoms Cardiovascular: Reports: No Symptoms Gastrointestinal: Reports: No Symptoms Genitourinary: Reports: No Symptoms Skin: Reports: No Symptoms Neurological: Reports: No Symptoms Psychiatric: Reports: No Symptoms Systems Review Comment:: Pain control better - Patient Data Vitals - Most Recent: Last Vital Signs Temp 37.2 C 11/11/18 07:00 Pulse 82 11/11/18 07:00 Resp 18 11/11/18 07:00 BP 118/50 L 11/11/18 08:30 Pulse Ox 94 L 11/11/18 07:00 Weight - Most Recent: 122.47 kg I&O - Last 24 Hours: Intake & Output 11/10/18 11/11/18 11/11/18 22:59 06:59 14:59 Intake Total 1402 1292 Output Total 800 1000 Balance 602 292 Med Orders - Current: Current Medications Acetaminophen (Tylenol) 650 mg PO Q4H PRN PRN Reason: Pain/Fever Hydrocodone Bitart/Acetaminophen ([place] 325-5 Mg) 1 tab PO Q3H PRN PRN Reason: Pain (mild 1-3) Amlodipine Besylate (Norvasc) 5 mg PO DAILY [facility] Last Admin: 11/11/18 08:29 Dose: 5 mg Bandage/Support Products ( Nasal Fiberglass Ski Maker) 1 applic NASBOTH BID [facility] Stop: 11/16/18 21:01 Last Admin: 11/11/18 08:28 Dose: 1 applic Benzocaine/Menthol (Cepacol Sore Throat) 1 lozenge MUCMEM Q2H PRN PRN Reason: Sore Throat Last Admin: 11/10/18 04:48 Dose: 1 jair Enoxaparin Sodium (Lovenox) 30 mg SUBCUT DAILY [facility] Last Admin: 11/11/18 08:29 Dose: 30 mg Hydrochlorothiazide (Hydrochlorothiazide) 25 mg PO DAILY [facility] Last Admin: 11/11/18 08:29 Dose: 25 mg Lactated Ringer's (Ringers, Lactated) 1,000 mls @ 75 mls/hr IV ASDIRECTED [facility] Last Admin: 11/10/18 23:17 Dose: 75 mls/hr Levetiracetam (Keppra) 500 mg PO BID [facility] Last Admin: 11/11/18 08:29 Dose: 500 mg Lisinopril (Prinivil) 40 mg PO DAILY [facility] Last Admin: 11/11/18 08:30 Dose: 40 mg Morphine Sulfate (Morphine) 2 mg IVPUSH Q1H PRN PRN Reason: Pain (severe 7-10) Last Admin: 11/09/18 19:13 Dose: 2 mg Nitroglycerin (Nitrostat) 0.4 mg SL ASDIRECTED PRN PRN Reason: CHEST PAIN Non-Formulary Medication (Loratadine/Pseudoephedrine [Claritin-D 24 Hour Tablet] ) 1 each PO ASDIRECTED [facility] Oxycodone/Acetaminophen (Percocet 325-5 Mg) 1 - 2 tab PO Q6H PRN PRN Reason: Pain (severe 7-10) Last Admin: 11/11/18 08:26 Dose: 1 tab Pantoprazole Sodium (Protonix) 40 mg PO ACBREAKFAST [facility] Last Admin: 11/11/18 08:28 Dose: 40 mg Senna/Docusate Sodium (Senna Plus) 2 tab PO BEDTIME [facility] Last Admin: 11/10/18 21:10 Dose: 2 tab Tamsulosin HCl (Flomax) 0.4 mg PO BEDTIME [facility] Last Admin: 11/10/18 21:09 Dose: 0.4 mg Warfarin Sodium (Coumadin) 5 mg PO DAILY@1300 [facility] Last Admin: 11/10/18 13:21 Dose: 5 mg Discontinued Medications Acetaminophen (Tylenol) 650 mg PO Q4H PRN PRN Reason: Pain/Fever Hydrocodone Bitart/Acetaminophen ([place] 325-5 Mg) 1 tab PO Q3H PRN PRN Reason: Pain (mild 1-3) Amlodipine Besylate (Norvasc) 5 mg PO DAILY [facility] Bandage/Support Products ( Nasal Fiberglass Ski Maker) 1 applic NASBOTH BID [facility] Last Admin: 11/09/18 14:57 Dose: Not Given Bandage/Support Products ( Nasal Fiberglass Ski Maker) 1 applic NASBOTH BID [facility] Stop: 11/16/18 21:01 Enoxaparin Sodium (Lovenox) 30 mg SUBCUT DAILY [facility] Ephedrine Sulfate (Ephedrine Sulfate) Confirm Administered Dose 50 mg .ROUTE .STK-MED ONE Stop: 11/09/18 11:05 Fentanyl (Sublimaze) Confirm Administered Dose 100 mcg .ROUTE .STK-MED ONE Stop: 11/09/18 09:57 Gabapentin (Neurontin) 300 mg PO ONETIME ONE Stop: 11/09/18 07:46 Last Admin: 11/09/18 08:16 Dose: 300 mg Hydrochlorothiazide (Hydrochlorothiazide) 25 mg PO DAILY [facility] Clindamycin Phosphate 900 mg/ (Sodium Chloride) 106 mls @ 200 mls/hr IV ONETIME ONE Stop: 11/09/18 09:31 Last Admin: 11/09/18 10:19 Dose: 200 mls/hr Lactated Ringer's (Ringers, Lactated) Confirm Administered Dose 1,000 mls @ as directed .ROUTE .[facility]-MED ONE Stop: 11/09/18 11:24 Sodium Chloride (Normal Saline) 500 mls @ 500 mls/hr IV .BOLUS ONE Stop: 11/09/18 20:56 Last Admin: 11/09/18 20:15 Dose: 500 mls/hr Clindamycin Phosphate 900 mg/ (Sodium Chloride) 106 mls @ 200 mls/hr IV Q8H [facility] Stop: 11/11/18 05:32 Last Admin: 11/11/18 05:51 Dose: 200 mls/hr Lisinopril (Prinivil) 40 mg PO DAILY [facility] Midazolam HCl (Versed 1 Mg/Ml) Confirm Administered Dose 2 mg .ROUTE .STK-MED ONE Stop: 11/09/18 09:57 Morphine Sulfate (Morphine) 2 mg IVPUSH Q1H PRN PRN Reason: Pain (severe 7-10) Non-Formulary Medication (Levetiracetam [Keppra]) 500 mg PO BID [facility] Non-Formulary Medication (Loratadine/Pseudoephedrine [Claritin-D 24 Hour Tablet] ) 1 each PO ASDIRECTED [facility] Non-Formulary Medication (Nitroglycerin [Nitroglycerin]) 0.3 mg SL ASDIRECTED [facility] Oxycodone/Acetaminophen (Percocet 325-5 Mg) 0 tab PO Q6H PRN PRN Reason: Pain (severe 7-10) Oxycodone/Acetaminophen (Percocet 325-5 Mg) 2 tab PO ONETIME ONE Stop: 11/09/18 19:58 Last Admin: 11/09/18 20:14 Dose: 2 tab Pantoprazole Sodium (Protonix) 40 mg PO DAILY [facility] Povidone Iodine (Betadine 10% Soln) Confirm Administered Dose 1 ml .ROUTE .STK- MED ONE Stop: 11/09/18 06:40 Last Admin: 11/09/18 10:00 Dose: 60 ml Propofol (Diprivan 20 Ml) Confirm Administered Dose 200 mg .ROUTE .STK-MED ONE Stop: 11/09/18 09:57 Propofol (Diprivan 20 Ml) Confirm Administered Dose 200 mg .ROUTE .STK-MED ONE Stop: 11/09/18 11:26 Scopolamine (Transderm-Scop) 1.5 mg TOP ONETIME ONE Stop: 11/09/18 07:46 Last Admin: 11/09/18 08:16 Dose: 1.5 mg Senna/Docusate Sodium (Senna Plus) 2 tab PO BEDTIME [facility] Tamsulosin HCl (Flomax) 0.4 mg PO BEDTIME [facility] - Exam Wound/Incisions: Dressing Dry and Intact General: Alert, Oriented HEENT: Pupils Equal Neck: Supple Lungs: Clear to Auscultation, Normal Respiratory Effort Cardiovascular: Regular Rate, Regular Rhythm GI/Abdominal Exam: Normal Bowel Sounds, Soft, Non-Tender, No Organomegaly, No Distention, No Abnormal Bruit, No Mass, Pelvis Stable Skin: Warm, Dry, Intact Neurological: No New Focal Deficit Psy/Mental Status: Alert, Normal Affect, Normal Mood - Problem List & Annotations (1) Status post total hip replacement, left SNOMED Code(s): 684833876055, 605016660646 Code(s): Z96.642 - PRESENCE OF LEFT ARTIFICIAL HIP JOINT Status: Acute Current Visit: Yes (2) Anemia following surgery SNOMED Code(s): 220608556, 827685567 Code(s): D64.9 - ANEMIA, UNSPECIFIED Status: Acute Current Visit: Yes (3) Atrial fibrillation SNOMED Code(s): 86651960 Code(s): I48.91 - UNSPECIFIED ATRIAL FIBRILLATION Status: Chronic Current Visit: Yes Qualifiers: Atrial fibrillation type: chronic Qualified Code(s): I48.2 - Chronic atrial fibrillation - Problem List Review Problem List Initiated/Reviewed/Updated: Yes - My Orders Last 24 Hours: Active Orders 24 hr Category Date Time Status DC Toribio Catheter [Urinary Catheter Removal] [RC] Per Care 11/11/18 09:58 Active Unit Routine Dietary Supplements [RC] BIDMEALS Care 11/10/18 12:14 Active INR,PT,PROTHROMBIN TIME [COAG] AM Lab 11/12/18 05:11 Ordered INR,PT,PROTHROMBIN TIME [COAG] AM Lab 11/13/18 05:11 Ordered Warfarin [Coumadin] Med 11/10/18 13:00 Active 5 mg PO DAILY@1300 Convert IV to Saline Lock [OM.PC] Routine Oth 11/11/18 09:59 Ordered Medication Orders Acetaminophen (Tylenol) 650 mg PO Q4H PRN PRN Reason: Pain/Fever Hydrocodone Bitart/Acetaminophen ([place] 325-5 Mg) 1 tab PO Q3H PRN PRN Reason: Pain (mild 1-3) Amlodipine Besylate (Norvasc) 5 mg PO DAILY [facility] Last Admin: 11/11/18 08:29 Dose: 5 mg Admin: 11/10/18 08:54 Dose: 5 mg Bandage/Support Products ( Nasal Fiberglass Ski Maker) 1 applic NASBOTH BID [facility] Stop: 11/16/18 21:01 Last Admin: 11/11/18 08:28 Dose: 1 applic Admin: 11/10/18 21:06 Dose: 1 applic Admin: 11/10/18 08:52 Dose: 1 applic Admin: 11/09/18 20:19 Dose: 1 applic Benzocaine/Menthol (Cepacol Sore Throat) 1 lozenge MUCMEM Q2H PRN PRN Reason: Sore Throat Last Admin: 11/10/18 04:48 Dose: 1 jair Enoxaparin Sodium (Lovenox) 30 mg SUBCUT DAILY [facility] Last Admin: 11/11/18 08:29 Dose: 30 mg Admin: 11/10/18 08:52 Dose: 30 mg Hydrochlorothiazide (Hydrochlorothiazide) 25 mg PO DAILY [facility] Last Admin: 11/11/18 08:29 Dose: 25 mg Admin: 11/10/18 08:53 Dose: 25 mg Lactated Ringer's (Ringers, Lactated) 1,000 mls @ 75 mls/hr IV ASDIRECTED [facility] Last Admin: 11/10/18 23:17 Dose: 75 mls/hr Infusion: 11/10/18 22:10 Dose: 75 mls/hr Admin: 11/10/18 08:50 Dose: 75 mls/hr Infusion: 11/10/18 08:35 Dose: 75 mls/hr Admin: 11/09/18 19:15 Dose: 75 mls/hr Infusion: 11/09/18 19:15 Dose: 75 mls/hr Admin: 11/09/18 08:17 Dose: 75 mls/hr Levetiracetam (Keppra) 500 mg PO BID [facility] Last Admin: 11/11/18 08:29 Dose: 500 mg Admin: 11/10/18 21:09 Dose: 500 mg Admin: 11/10/18 08:52 Dose: 500 mg Admin: 11/09/18 20:18 Dose: 500 mg Lisinopril (Prinivil) 40 mg PO DAILY [facility] Last Admin: 11/11/18 08:30 Dose: 40 mg Admin: 11/10/18 08:53 Dose: 40 mg Morphine Sulfate (Morphine) 2 mg IVPUSH Q1H PRN PRN Reason: Pain (severe 7-10) Last Admin: 11/09/18 19:13 Dose: 2 mg Nitroglycerin (Nitrostat) 0.4 mg SL ASDIRECTED PRN PRN Reason: CHEST PAIN Non-Formulary Medication (Loratadine/Pseudoephedrine [Claritin-D 24 Hour Tablet] ) 1 each PO ASDIRECTED [facility] Oxycodone/Acetaminophen (Percocet 325-5 Mg) 1 - 2 tab PO Q6H PRN PRN Reason: Pain (severe 7-10) Last Admin: 11/11/18 08:26 Dose: 1 tab Admin: 11/11/18 02:02 Dose: 1 tab Admin: 11/10/18 17:36 Dose: 2 tab Admin: 11/10/18 07:58 Dose: 2 tab Admin: 11/10/18 02:24 Dose: 2 tab Admin: 11/09/18 17:32 Dose: 2 tab Pantoprazole Sodium (Protonix) 40 mg PO ACBREAKFAST [facility] Last Admin: 11/11/18 08:28 Dose: 40 mg Admin: 06/04/19 07:31 Dose: 40 mg Senna/Docusate Sodium (Senna Plus) 2 tab PO BEDTIME [facility] Last Admin: 11/10/18 21:10 Dose: 2 tab Admin: 11/09/18 20:18 Dose: 2 tab Tamsulosin HCl (Flomax) 0.4 mg PO BEDTIME [facility] Last Admin: 11/10/18 21:09 Dose: 0.4 mg Admin: 11/09/18 20:17 Dose: 0.4 mg Warfarin Sodium (Coumadin) 5 mg PO DAILY@1300 [facility] Last Admin: 11/10/18 13:21 Dose: 5 mg - Assessment Assessment (Free Text/Narrative):: Up in chair this am with some difficulty, has not been out of room yet. No nausea. Started on Coumadin. - Plan Plan (Free Text/Narrative):: D/C Toribio catheter, check PT/INR in am, continue PT/OT, change dressing today, will need continued rehab working on placement
[2018-11-11] MEDS: Warfarin 5 MG Tab PO SCH (13:56)
[2018-11-11] MEDS: Tamsulosin 0.4 MG Cap.ER PO SCH (21:46)
[2018-11-12 07:19] VITALS: BP 117/69
[2018-11-12] MEDS: Acetaminophen/oxyCODONE 325-5 MG Tab PO PRN ×2 (07:35→11:03)
--- NOTE | 2018-11-12 08:42 | OR ---
DATE OF PROCEDURE: 11/09/2018 SURGEON: Ry Yepez MD PREOPERATIVE DIAGNOSIS: Osteoarthritis, left hip. POSTOPERATIVE DIAGNOSIS: Osteoarthritis, left hip. PROCEDURE: Left total hip arthroplasty using Vika trabecular metal cup size 54, M/L Taper stem size 13.5 with extended offset, and a +3.5 mm femoral head. ANESTHESIA: Spinal with sedation. INDICATIONS: Mr. Correia is a 78-year-old gentleman with a history of progressive pain in both hips over the past year. It has been causing increasing difficulty with activities of daily living and ambulation. X-rays show osteoarthritis of both hips with calcification in the labrum and surrounding soft tissues. Risks, benefits, and potential complications of total hip arthroplasty were discussed. He agrees to proceed. DESCRIPTION OF PROCEDURE: After adequate anesthesia was obtained, the patient was placed in a lateral decubitus position and secured with the hip positioner. The left hip and leg were then prepped and draped in a sterile fashion. A longitudinal incision was made over the greater trochanter and carried down through the subcutaneous tissues. Hemostasis was obtained with electrocautery. Tensor fascia and IT band were then split in line with its fibers and a Charnley retractor was placed. Short external rotators were then taken off the posterior aspect of the greater trochanter with electrocautery. Piriformis was split and retracted medially. Limited range of motion was present and the hip was very stiff and so the capsule was divided. Capsular release was carried along the posterior aspect and up superiorly around the anterior aspect. This was then divided in a T-fashion posteriorly. This then allowed dislocation of the hip. Retractor was placed about the femoral neck. An oscillating saw was then used to resect the femoral head. Retractors were placed on the anterior-inferior aspect of the acetabulum. Soft tissues were cleared from central portion of the acetabulum using electrocautery and rongeur. Labrum was excised. Calcifications were present within the labrum, particularly superolaterally. The reamers were then used sequentially from 45 mm up to 54 mm. This then provided excellent subchondral bone. The hip was irrigated, and the Vika trabecular metal cup was then tapped into position using the alignment guide. Excellent purchase was obtained. Liner was then tapped into position and position confirmed. Attention was then returned to the proximal femur. A box osteotome was used to remove the lateral femoral neck cortex. A lateral reamer was utilized. The canal was then sequentially broached to 13.5 mm. A 13.5 size M/L Taper stem with extended offset was then tapped into position. Trial reductions were then performed. A +3.5 neck length was selected. This provided gnosticist of limb length and stability at 90 degrees of flexion and adduction and internal rotation beyond 45 degrees. The trial was removed. It was irrigated. The final femoral head was tapped onto the stem. This was then reduced. It was again taken through range of motion and found to be stable. It was then irrigated. IT band was then closed in a running fashion with #1 Ethibond. The skin was closed with 2-0 Vicryl and a running 3-0 Monocryl. Steri- Strips were applied. The patient tolerated the procedure well. There were no complications. He was taken from the operating room in a stable condition. Ry Yepez MD /[id number]
[2018-11-12] MEDS: Nozin Nasal Sanitizer NASBOTH SCH (09:22)
[2018-11-12] MEDS: amLODIPine 5 MG Tab PO SCH (09:24)
[2018-11-12] MEDS: Lisinopril 20 MG Tab PO SCH (09:24)
[2018-11-12] MEDS: levETIRAcetam 250 MG Tab PO SCH (09:24)
[2018-11-12] MEDS: Pantoprazole 40 MG Tab.CR PO SCH (09:24)
[2018-11-12] MEDS: Hydrochlorothiazide 25 MG Tab PO SCH (09:24)
[2018-11-12] MEDS: Enoxaparin 30 MG/0.3 ML Syringe SUBCUT SCH (09:24)
--- NOTE | 2018-11-12 10:44 | PCM.DCSUM1 ---
Discharge Summary - Hospital Course Free Text/Narrative:: 78 year old gentleman admitted for left total hip arthroplasty. Diagnosis: Stroke: No - Discharge Data Discharge Date: 11/12/18 Discharge Disposition: DC/Tfer to SNF 03 Condition: Good - Discharge Diagnosis/Problem(s) (1) Status post total hip replacement, left SNOMED Code(s): 071029789795, 947820481507 ICD Code: Z96.642 - PRESENCE OF LEFT ARTIFICIAL HIP JOINT Status: Acute (2) Anemia following surgery SNOMED Code(s): 671476722, 516169347 ICD Code: D64.9 - ANEMIA, UNSPECIFIED Status: Acute (3) Atrial fibrillation SNOMED Code(s): 66164628 ICD Code: I48.91 - UNSPECIFIED ATRIAL FIBRILLATION Status: Chronic Qualifiers: Atrial fibrillation type: chronic Qualified Code(s): I48.2 - Chronic atrial fibrillation - Patient Summary/Data Operative Procedure(s) Performed: Left IBRAHIMA Complications: None Consults: Consultations 11/09/18 13:18 PT Evaluation and Treatment [CONS] Routine Please Evaluate and Treat. PT Reason for Consult: Ambulation Discharge Disposition: Home w Home Health Special Instructions: posterior hip precautions, WBAT This query below is only for informational purposes and is not editable. 11/09/18 13:27 Consult to Occupational Therapy [OT Evaluation and Treatment] [CONS] Routine Please Evaluate and Treat. OT Reason for Consult: ADL's Pending Discharge: Yes Discharge Disposition: Home w Home Health This query below is only for informational purposes and is not editable. Admission Diagnosis/Problem: Osteoarthritis Recommended Follow-up Testing/Procedures: Has follow up appointment scheduled with [facility]. Will need Primary Care Provider, Dr. Germán Lopez, to follow up on anticoagulation. Hospital Course: Admitted and underwent Left IBRAHIMA without complication. Had two episodes of mild hypotension post op that responded to fluid bolus. Pain not well controlled first night but improved by POD #1. Slow progress with PT, was able to get approx 90 ft of ambulation prior to discharge. Still having trouble with transfers in and out of bed, not independent. Dressing changed on POD #2 and had slight amount of drainage. Still some the AM of POD #3. Coumadin resumed, INR 1.2 on 06/06, discontinue Lovenox. Transferred to SNF POD #3. - Patient Instructions Diet: Low Sodium Activity: Apply Ice, As Tolerated, Full Weight Bearing Activity, Other: Posterior hip precautions Driving: Do Not Drive Showering/Bathing: May Shower Wound/Incision Care: Change Dressing Daily Notify Provider of: Fever, Increased Pain, Swelling and Redness, Drainage - Discharge Plan *PRESCRIPTION DRUG MONITORING PROGRAM REVIEWED*: No *COPY OF PRESCRIPTION DRUG MONITORING REPORT IN PATIENT HIRO: No Home Medications: Home Meds Hydrochlorothiazide 25 mg PO DAILY 12/04/15 [History] Lisinopril 40 mg PO DAILY 12/04/15 [History] Warfarin [Coumadin] 5 mg PO DAILY 12/04/15 [History] Acetaminophen [Tylenol] 650 mg PO Q6H #200 tablet 04/21/17 [Rx] Docusate Sodium/Sennosides [Senna Plus] 2 tab PO BEDTIME #60 tablet 04/21/17 [Rx ] Tamsulosin [Flomax] 0.4 mg PO BEDTIME #30 cap.er 04/21/17 [Rx] Loratadine/Pseudoephedrine [Claritin-D 24 Hour Tablet] 1 each PO ASDIRECTED [History] Multivitamin with Minerals [Multiple Vitamin] 1 tab PO DAILY 11/05/18 [History] Nitroglycerin 0.3 mg SL ASDIRECTED 11/05/18 [History] Pantoprazole Sodium 40 mg PO DAILY 11/05/18 [History] Sodium Chloride 0.65% [Ferney Saline] 2 squirt NASBOTH ASDIRECTED 11/05/18 [History ] amLODIPine Besylate [Amlodipine Besylate] 5 mg PO DAILY 11/05/18 [History] levETIRAcetam [Keppra] 500 mg PO BID 11/05/18 [History] Naproxen Sodium [Aleve] 220 mg PO Q12H 11/09/18 [History] Oxygen Therapy Mode: Room Air Patient Handouts: Total Hip Replacement, Posterior, Care After Referrals: Ry Yepez MD [Physician] - 11/24/18 10:30 am (Please arrive 15 minutes early to register for your appointment. Please register at the ER desk for appointment.) - Discharge Summary/Plan Comment DC Time >30 min.: Yes - General Info Date of Service: 11/12/18 Functional Status: Reports: Tolerating Diet, Ambulating, Urinating - Review of Systems General: Reports: No Symptoms HEENT: Reports: No Symptoms Pulmonary: Reports: No Symptoms Cardiovascular: Reports: No Symptoms Gastrointestinal: Reports: No Symptoms Genitourinary: Reports: No Symptoms Skin: Reports: No Symptoms Neurological: Reports: No Symptoms Psychiatric: Reports: No Symptoms - Patient Data Vitals - Most Recent: Last Vital Signs Temp 37.3 C 11/12/18 07:00 Pulse 86 11/12/18 07:00 Resp 18 11/12/18 07:00 BP 117/69 11/12/18 09:24 Pulse Ox 95 11/12/18 07:00 Weight - Most Recent: 122.47 kg I&O - Last 24 hours: Intake & Output 11/11/18 11/12/18 11/12/18 22:59 06:59 14:59 Intake Total 750 120 Output Total 900 800 250 Balance -150 -680 -250 Lab Results - Last 24 hrs: Laboratory Results - last 24 hr 11/12/18 Range/Units 04:45 PT 13.1 H (9.5-12.0) sec INR 1.20 (0.80-1.20) Med Orders - Current: Current Medications Acetaminophen (Tylenol) 650 mg PO Q4H PRN PRN Reason: Pain/Fever Hydrocodone Bitart/Acetaminophen ([place] 325-5 Mg) 1 tab PO Q3H PRN PRN Reason: Pain (mild 1-3) Amlodipine Besylate (Norvasc) 5 mg PO DAILY [facility] Last Admin: 11/12/18 09:24 Dose: 5 mg Bandage/Support Products ( Nasal Handwriting Expert) 1 applic NASBOTH BID [facility] Stop: 11/16/18 21:01 Last Admin: 11/12/18 09:22 Dose: 1 applic Benzocaine/Menthol (Cepacol Sore Throat) 1 lozenge MUCMEM Q2H PRN PRN Reason: Sore Throat Last Admin: 11/10/18 04:48 Dose: 1 jair Enoxaparin Sodium (Lovenox) 30 mg SUBCUT DAILY [facility] Last Admin: 11/12/18 09:24 Dose: 30 mg Hydrochlorothiazide (Hydrochlorothiazide) 25 mg PO DAILY [facility] Last Admin: 11/12/18 09:24 Dose: 25 mg Levetiracetam (Keppra) 500 mg PO BID [facility] Last Admin: 11/12/18 09:24 Dose: 500 mg Lisinopril (Prinivil) 40 mg PO DAILY [facility] Last Admin: 11/12/18 09:24 Dose: 40 mg Morphine Sulfate (Morphine) 2 mg IVPUSH Q1H PRN PRN Reason: Pain (severe 7-10) Last Admin: 11/09/18 19:13 Dose: 2 mg Nitroglycerin (Nitrostat) 0.4 mg SL ASDIRECTED PRN PRN Reason: CHEST PAIN Loratadine/Pseudoephedrine [ Claritin-D 24 Hour Tablet] Pom 1 each PO ASDIRECTED [facility] Oxycodone/Acetaminophen (Percocet 325-5 Mg) 1 - 2 tab PO Q6H PRN PRN Reason: Pain (severe 7-10) Last Admin: 11/12/18 07:35 Dose: 2 tab Pantoprazole Sodium (Protonix) 40 mg PO ACBREAKFAST [facility] Last Admin: 11/12/18 09:24 Dose: 40 mg Senna/Docusate Sodium (Senna Plus) 2 tab PO BEDTIME [facility] Last Admin: 11/11/18 21:46 Dose: 2 tab Tamsulosin HCl (Flomax) 0.4 mg PO BEDTIME [facility] Last Admin: 11/11/18 21:46 Dose: 0.4 mg Warfarin Sodium (Coumadin) 5 mg PO DAILY@1300 [facility] Last Admin: 11/11/18 13:56 Dose: 5 mg Discontinued Medications Acetaminophen (Tylenol) 650 mg PO Q4H PRN PRN Reason: Pain/Fever Hydrocodone Bitart/Acetaminophen ([place] 325-5 Mg) 1 tab PO Q3H PRN PRN Reason: Pain (mild 1-3) Amlodipine Besylate (Norvasc) 5 mg PO DAILY [facility] Bandage/Support Products ( Nasal Handwriting Expert) 1 applic NASBOTH BID [facility] Last Admin: 11/09/18 14:57 Dose: Not Given Bandage/Support Products ( Nasal Handwriting Expert) 1 applic NASBOTH BID [facility] Stop: 11/16/18 21:01 Enoxaparin Sodium (Lovenox) 30 mg SUBCUT DAILY [facility] Ephedrine Sulfate (Ephedrine Sulfate) Confirm Administered Dose 50 mg .ROUTE .STK-MED ONE Stop: 11/09/18 11:05 Fentanyl (Sublimaze) Confirm Administered Dose 100 mcg .ROUTE .STK-MED ONE Stop: 11/09/18 09:57 Gabapentin (Neurontin) 300 mg PO ONETIME ONE Stop: 11/09/18 07:46 Last Admin: 11/09/18 08:16 Dose: 300 mg Hydrochlorothiazide (Hydrochlorothiazide) 25 mg PO DAILY [facility] Clindamycin Phosphate 900 mg/ (Sodium Chloride) 106 mls @ 200 mls/hr IV ONETIME ONE Stop: 11/09/18 09:31 Last Admin: 11/09/18 10:19 Dose: 200 mls/hr Lactated Ringer's (Ringers, Lactated) 1,000 mls @ 75 mls/hr IV ASDIRECTED [facility] Last Admin: 11/10/18 23:17 Dose: 75 mls/hr Lactated Ringer's (Ringers, Lactated) Confirm Administered Dose 1,000 mls @ as directed .ROUTE .STK-MED ONE Stop: 11/09/18 11:24 Sodium Chloride (Normal Saline) 500 mls @ 500 mls/hr IV .BOLUS ONE Stop: 11/09/18 20:56 Last Admin: 11/09/18 20:15 Dose: 500 mls/hr Clindamycin Phosphate 900 mg/ (Sodium Chloride) 106 mls @ 200 mls/hr IV Q8H ALEA Stop: 11/11/18 05:32 Last Admin: 11/11/18 05:51 Dose: 200 mls/hr Lisinopril (Prinivil) 40 mg PO DAILY [facility] Midazolam HCl (Versed 1 Mg/Ml) Confirm Administered Dose 2 mg .ROUTE .STK-MED ONE Stop: 11/09/18 09:57 Morphine Sulfate (Morphine) 2 mg IVPUSH Q1H PRN PRN Reason: Pain (severe 7-10) Non-Formulary Medication (Levetiracetam [Keppra]) 500 mg PO BID [facility] Non-Formulary Medication (Loratadine/Pseudoephedrine [Claritin-D 24 Hour Tablet] ) 1 each PO ASDIRECTED [facility] Non-Formulary Medication (Nitroglycerin [Nitroglycerin]) 0.3 mg SL ASDIRECTED [facility] Oxycodone/Acetaminophen (Percocet 325-5 Mg) 0 tab PO Q6H PRN PRN Reason: Pain (severe 7-10) Oxycodone/Acetaminophen (Percocet 325-5 Mg) 2 tab PO ONETIME ONE Stop: 11/09/18 19:58 Last Admin: 11/09/18 20:14 Dose: 2 tab Pantoprazole Sodium (Protonix) 40 mg PO DAILY [facility] Povidone Iodine (Betadine 10% Soln) Confirm Administered Dose 1 ml .ROUTE .STK- MED ONE Stop: 11/09/18 06:40 Last Admin: 11/09/18 10:00 Dose: 60 ml Propofol (Diprivan 20 Ml) Confirm Administered Dose 200 mg .ROUTE .STK-MED ONE Stop: 11/09/18 09:57 Propofol (Diprivan 20 Ml) Confirm Administered Dose 200 mg .ROUTE .STK-MED ONE Stop: 11/09/18 11:26 Scopolamine (Transderm-Scop) 1.5 mg TOP ONETIME ONE Stop: 11/09/18 07:46 Last Admin: 11/09/18 08:16 Dose: 1.5 mg Senna/Docusate Sodium (Senna Plus) 2 tab PO BEDTIME ALEA Tamsulosin HCl (Flomax) 0.4 mg PO BEDTIME ALEA - Exam General: Reports: Alert, Oriented HEENT: Reports: Pupils Equal, Pupils Reactive, EOMI, Mucous Membr. Moist/Excello Neck: Reports: Supple Lungs: Reports: Clear to Auscultation, Normal Respiratory Effort Cardiovascular: Reports: Regular Rate, Regular Rhythm GI/Abdominal Exam: Normal Bowel Sounds, Soft, Non-Tender, No Organomegaly, No Distention, No Abnormal Bruit, No Mass, Pelvis Stable (Male) Exam: Deferred Rectal (Males) Exam: Deferred Back Exam: Reports: Normal Inspection, Full Range of Motion Skin: Reports: Warm, Dry, Intact Wound/Incisions: Reports: Drainage, Other (slight bloody drainage from inerior edge of incision) Neurological: Reports: No New Focal Deficit Psy/Mental Status: Reports: Alert, Normal Affect, Normal Mood
[2018-11-12] MEDS: Warfarin 5 MG Tab PO SCH (11:02)
== END 2018-11-12 11:15 | DRG 470 ==
LOC: JP.SDSSCHI 07:28 → JP.SDS 07:28 → EDSTATUS 08:30 → JP.MS 13:18
PROVIDERS: ADMIT Specialist; ATTEND Specialist
PROC: 0SRB01A Replacement of Left Hip Joint with Metal Synthetic Substitute, Uncemented, Open Approach (ICD-10-PCS; principal; 2018-11-09)
DX: M16.12 Unilateral primary osteoarthritis, left hip (principal); D64.9 Anemia, unspecified; I10 Essential (primary) hypertension; I95.81 Postprocedural hypotension; I48.2 Chronic atrial fibrillation; F32.9 Major depressive disorder, single episode, unspecified; H91.90 Unspecified hearing loss, unspecified ear; Z95.0 Presence of cardiac pacemaker; M54.5 Low back pain; Z79.01 Long term (current) use of anticoagulants; Z88.0 Allergy status to penicillin; Z88.2 Allergy status to sulfonamides
CPT/HCPCS: 36415; 72170; 72170-26; 80048; 85027; 85610; 86850; 86900; 86901; 97110-GP; 97162-GP; 97165-GO; 97530-GP; 97535-GP; A9270-GY; C1776; J1650; J2250; J2270; J2704; J3010; J3490; J7030; J7040; J7120

== ENCOUNTER 2018-11-17 09:54 | Inpatient (IN) | payer MEDICARE ==
[2018-11-17] MEDS ORDERED: ceFAZolin 2 GM in Sodium Chloride 0.9% 50 ML IV SCH (10:30)
[2018-11-17] MEDS ORDERED: NITROGLYCERIN 0.3 MG SL SCH (10:45)
[2018-11-17] MEDS ORDERED: Nitroglycerin 0.4 MG Tab.SL SL PRN (10:57)
[2018-11-17] MEDS ORDERED: ceFAZolin 2 GM in Premix Bag 1 BAG IV SCH (12:00)
[2018-11-17] MEDS: ceFAZolin 2 GM in Premix Bag 1 BAG IV SCH ×2 (12:28→19:47)
[2018-11-17] MEDS ORDERED: Gentamicin 40 MG/ML 2 ML Vial ONE (14:04)
[2018-11-17] MEDS ORDERED: Bupivacaine 0.5% 50 ML MDV ONE ×2 (14:04→16:26)
[2018-11-17] MEDS ORDERED: Povidone-Iodine 10% Soln 118.25 ML Bottle ONE (14:09)
[2018-11-17] MEDS: Lactated Ringers 1,000 ML IV SCH (14:29)
--- NOTE | 2018-11-17 14:58 | PCM.HP ---
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 Has had a small amount of drainage from the inferior end of the incision since surgery. Was doing well with PT at [facility] and progressing toward discharge at the end of this week. Began having increased drainage and sanchez over the last couple of days. No fevers, chills or night sweats. Wound drainage was sent for Gm Stain and culture by Dr. Lopez yesterday. Gm stain came back positive for Gm positive cocci. Admitted thru clinic for I&D and initiation of IV antibiotics. Onset of Symptoms: Reports: Gradual Quality: Reports: Ache, Pressure Severity: Moderate Improves with: Reports: Rest Worsens with: Reports: Movement Associated Symptoms: Reports: No Other Symptoms Left Hip Pain Score (Numeric/FACES): 4 - Related Data Allergies/Adverse Reactions: Allergies Allergy/AdvReac Type Severity Reaction Status Date / Time Penicillins Allergy Cannot Verified 11/09/18 08:09 Remember Sulfa (Sulfonamide Allergy Itching Verified 11/09/18 08:09 Antibiotics) Home Medications: Home Meds Hydrochlorothiazide 25 mg PO DAILY 12/04/15 [History] Lisinopril 40 mg PO DAILY 12/04/15 [History] Warfarin [Coumadin] 5 mg PO DAILY 12/04/15 [History] Acetaminophen [Tylenol] 650 mg PO Q6H #200 tablet 04/21/17 [Rx] Docusate Sodium/Sennosides [Senna Plus] 2 tab PO BEDTIME #60 tablet 04/21/17 [Rx ] Tamsulosin [Flomax] 0.4 mg PO BEDTIME #30 cap.er 04/21/17 [Rx] Loratadine/Pseudoephedrine [Claritin-D 24 Hour Tablet] 1 each PO ASDIRECTED [History] Multivitamin with Minerals [Multiple Vitamin] 1 tab PO DAILY 11/05/18 [History] Nitroglycerin 0.3 mg SL ASDIRECTED 11/05/18 [History] Pantoprazole Sodium 40 mg PO DAILY 11/05/18 [History] Sodium Chloride 0.65% [Martin Saline] 2 squirt NASBOTH ASDIRECTED 11/05/18 [History ] amLODIPine Besylate [Amlodipine Besylate] 5 mg PO DAILY 11/05/18 [History] levETIRAcetam [Keppra] 500 mg PO BID 11/05/18 [History] Naproxen Sodium [Aleve] 220 mg PO Q12H 11/09/18 [History] Acetaminophen/oxyCODONE [Percocet 325-5 MG] 1 tab PO Q6H PRN 11/17/18 [History] Cephalexin [Keflex] 500 mg PO QID 11/17/18 [History] Past Medical History HEENT History: Reports: Allergic Rhinitis, Impaired Vision, Sinusitis Cardiovascular History: Reports: Afib, Hypertension, MD, Pacemaker Respiratory History: Reports: SOB Gastrointestinal History: Reports: Colon Polyp, Hemorrhoids Genitourinary History: Reports: Other (See Below) Other Genitourinary History: urinary retention Musculoskeletal History: Reports: Arthritis, Other (See Below) Other Musculoskeletal History: bilat hip pain Neurological History: Reports: Other (See Below) Other Neuro History: some numbness, tingling to feet since back surgery Psychiatric History: Reports: Depression Endocrine/Metabolic History: Reports: Obesity/BMI 30+ Hematologic History: Reports: Anemia, Anticoagulation Therapy Immunologic History: Reports: None Oncologic (Cancer) History: Reports: Colon Dermatologic History: Reports: None - Infectious Disease History Infectious Disease History: Reports: Chicken Pox, Measles, Mumps, Shingles - Past Surgical History Head Surgeries/Procedures: Reports: None HEENT Surgical History: Reports: Adenoidectomy, Naso-Sinus Surgery, Tonsillectomy Cardiovascular Surgical History: Reports: Pacer Respiratory Surgical History: Reports: None GI Surgical History: Reports: Colon, Colonoscopy, Other (See Below) Other GI Surgeries/Procedures: hemicoloectomy Male Surgical History: Reports: None Endocrine Surgical History: Reports: None Neurological Surgical History: Reports: Lumbar Spine, Other (See Below) Other Neurological Surgeries/Procedures: back surgery Musculoskeletal Surgical History: Reports: Carpal Tunnel, Hip Replacement Other Musculoskeletal Surgeries/Procedures:: left-11/09/18 Oncologic Surgical History: Reports: None Social & Family History - Family History Family Medical History: Noncontributory - Tobacco Use Smoking Status *Q: Former Smoker Used Tobacco, but Quit: Yes Month/Year Tobacco Last Used: 1978 - Caffeine Use Caffeine Use: Reports: Coffee - Recreational Drug Use Recreational Drug Use: No H&P Review of Systems - Review of Systems: Review Of Systems: ROS reveals no pertinent complaints other than HPI. Free Text/Narrative: No fevers, chills or night sweats. General: Reports: No Symptoms HEENT: Reports: No Symptoms Pulmonary: Reports: No Symptoms Cardiovascular: Reports: No Symptoms Gastrointestinal: Reports: No Symptoms Genitourinary: Reports: No Symptoms Musculoskeletal: Reports: Leg Pain Skin: Reports: No Symptoms Psychiatric: Reports: No Symptoms Neurological: Reports: No Symptoms Hematologic/Lymphatic: Reports: No Symptoms Immunologic: Reports: No Symptoms Exam - Exam Exam: See Below - Vital Signs Vital Signs: Last Vital Signs Temp 37.3 C 11/17/18 11:13 Pulse 79 11/17/18 11:13 Resp 16 11/17/18 11:13 BP 115/55 L 11/17/18 11:13 Pulse Ox 95 11/17/18 11:13 Weight: 122.47 kg - Exam General: Alert, Oriented, 4 HEENT: PERRLA, Hearing Intact, Mucosa Moist & [place], Nares Patent, Normal Nasal Septum, Posterior Pharynx Clear, Conjunctiva Clear, EOMI, EACs Clear, TMs Clear Neck: Supple, Trachea Midline, 2 Lungs: Clear to Auscultation, Normal Respiratory Effort Cardiovascular: Regular Rate, Regular Rhythm GI/Abdominal Exam: Normal Bowel Sounds, Soft, Non-Tender, No Organomegaly, No Distention, No Abnormal Bruit, No Mass, Pelvis Stable (Male) Exam: Deferred Rectal (Males) Exam: Deferred Back Exam: Normal Inspection, Full Range of Motion, NT Extremities: Other (left hip wound with mild to moderate serous drainage, skin is warm to touch, mild erythema) Peripheral Pulses: 2+: Dorsalis Pedis (L), Dorsalis Pedis (R) Neurological: Cranial Nerves Intact, Reflexes Equal Bilateral Neuro Extensive - Mental Status: Alert, Oriented x3, Normal Mood/Affect, Normal Cognition Neuro Extensive - Motor, Sensory, Reflexes: CN II-XII Intact, Normal Gait, Normal Reflexes Psychiatric: Alert, Normal Affect, Normal Mood - Patient Data Lab Results Last 24 hrs: Laboratory Results - last 24 hr 11/17/18 11/17/18 Range/Units 10:57 10:57 WBC 9.1 (4.5-11.0) K/uL RBC 4.68 (4.30-5.90) M/uL Hgb 11.5 L (12.0-15.0) g/dL Hct 37.0 L (40.0-54.0) % MCV 79 L (80-98) fL MCH 25 L (27-31) pg MCHC 31 L (32-36) % Plt Count 277 (150-400) K/uL Neut % (Auto) 78 H (36-66) % Lymph % (Auto) 13 L (24-44) % Love % (Auto) 6 (2-6) % Eos % (Auto) 3 (2-4) % Baso % (Auto) 0 (0-1) % Sodium 138 L (140-148) mmol/L Potassium 4.4 (3.6-5.2) mmol/L Chloride 104 (100-108) mmol/L Carbon Dioxide 23 (21-32) mmol/L Anion Gap 15.4 H (5.0-14.0) mmol/L BUN 24 H (7-18) mg/dL Creatinine 1.4 H (0.8-1.3) mg/dL Est Cr Clr Drug Dosing 46.32 mL/min Estimated GFR (MDRD) 49 L (>60) Glucose 122 H (74-106) mg/dL Calcium 10.1 (8.5-10.1) mg/dL Total Bilirubin 0.4 (0.2-1.0) mg/dL AST 49 H (15-37) U/L ALT 69 (12-78) U/L Alkaline Phosphatase 125 H (46-116) U/L Total Protein 7.0 (6.4-8.2) g/dL Albumin 3.0 L (3.4-5.0) g/dL Globulin 4.0 H (2.3-3.5) g/dL Albumin/Globulin Ratio 0.8 L (1.2-2.2) Result Diagrams: 11/18/18 05:07 11/17/18 10:57 - Problem List (1) Status post total hip replacement, left SNOMED Code(s): 598694346013, [id number] ICD Code: Z96.642 - PRESENCE OF LEFT ARTIFICIAL HIP JOINT Status: Acute Current Visit: No Problem List Initiated/Reviewed/Updated: Yes Orders Last 24hrs: Active Orders 24 hr Category Date Time Status Admission Status [Patient Status] [ADT] Routine ADT 11/17/18 10:25 Active Patient Status [ADT] Routine ADT 11/17/18 10:30 Active Ambulate [RC] PER UNIT ROUTINE Care 11/17/18 10:30 Active Antiembolic Devices [RC] .Routine Care 11/17/18 10:30 Active Head of Bed Elevation [RC] ASDIRECTED Care 11/17/18 10:30 Active Intake and Output [RC] PER UNIT ROUTINE Care 11/17/18 10:30 Active Neurovascular Check [RC] BID Care 11/17/18 10:30 Active Notify Provider Vital Signs [RC] ASDIRECTED Care 11/17/18 10:30 Active Oxygen Therapy [RC] PRN Care 11/17/18 10:30 Active Pneumonia Education [RC] UPON Care 11/17/18 10:30 Active Pulse Oximetry [RC] INTERMITTENT Care 11/17/18 10:30 Active RT Incentive Spirometry [RC] Q1HWA Care 11/17/18 10:30 Active Up to Chair [RC] QID Care 11/17/18 10:30 Active VTE/DVT Education [RC] Click to Edit Care 11/17/18 10:30 Active Verify Patient Consent Obtain [RC] ASDIRECTED Care 11/17/18 10:36 Active Vital Signs [RC] Q4H Care 11/17/18 10:30 Active Wound Care [RC] Q12H Care 11/17/18 10:30 Active PT Evaluation and Treatment [CONS] Routine Cons 11/17/18 10:30 Active NPO [Nothing Per Oral Diet] [DIET] Diet 11/17/18 Lunch Active CBC W/O DIFF,HEMOGRAM [HEME] AM Lab 11/18/18 05:11 Ordered Lactated Ringers [Ringers, Lactated] 1,000 ml Med 11/17/18 14:15 Active IV ASDIRECTED Nitroglycerin [Nitrostat] Med 11/17/18 10:57 Active 0.4 mg SL ASDIRECTED PRN Nozin [ Nasal Cloth Tester Quality] Med 11/17/18 21:00 Active 1 applic NASBOTH BID ceFAZolin [Ancef] 2 gm Med 11/17/18 12:00 Active Premix Bag 1 bag IV Q8H Antiembolic Hose [OM.PC] Per Unit Routine Ot 11/17/18 10:30 Ordered DME for Inpatients [OM.PC] Routine Ot 11/17/18 10:30 Ordered DVT/VTE Prophylaxis Reflex [OM.PC] Routine Oth 11/17/18 10:30 Ordered Ice Therapy [OM.PC] Per Unit Routine Ot 11/17/18 10:30 Ordered Oral Care [OM.PC] Routine Oth 11/17/18 10:30 Ordered Weight bearing status [OM.PC] Routine Ot 11/17/18 10:30 Ordered Resuscitation Status Routine Resus Stat 11/17/18 10:30 Ordered Medication Orders Bandage/Support Products ( Nasal Cloth Tester Quality) 1 applic NASBOTH BID [facility] Stop: 11/24/18 09:01 Cefazolin Sodium/Dextrose 2 gm (/ Premix) 50 mls @ 100 mls/hr IV Q8H [facility] Stop: 11/17/18 20:29 Last Admin: 11/17/18 12:28 Dose: 100 mls/hr Lactated Ringer's (Ringers, Lactated) 1,000 mls @ 100 mls/hr IV ASDIRECTED [facility] Last Admin: 11/17/18 14:29 Dose: 100 mls/hr Nitroglycerin (Nitrostat) 0.4 mg SL ASDIRECTED PRN PRN Reason: Chest Pain Periprosthetic infection left total hip, early. Will admit for I&D of hip and initiate IV antibiotics. Await culture results from yesterday. New deep cultures will be obtained at surgery. Discussed with Jeremy and he understands need for surgery.
[2018-11-17] MEDS ORDERED: Midazolam 1 MG/ML 2 ML SDV ONE (15:41)
[2018-11-17] MEDS ORDERED: Propofol 200 MG/20 ML SDV ONE (15:41)
[2018-11-17] MEDS ORDERED: fentaNYL 100 MCG/2 ML SDV ONE (15:41)
[2018-11-17] MEDS ORDERED: fentaNYL 250 MCG/5 ML SDV ONE (16:57)
[2018-11-17] MEDS ORDERED: Ondansetron 4 MG/2 ML SDV ONE (17:00)
[2018-11-17] MEDS ORDERED: Rocuronium 50 MG/5 ML Vial ONE (17:00)
[2018-11-17] MEDS ORDERED: Dexamethasone 4 MG/ML SDV ONE (17:00)
[2018-11-17] MEDS ORDERED: Glycopyrrolate 0.2 MG/ML 5 ML MDV ONE (17:00)
[2018-11-17] MEDS ORDERED: Neostigmine Methylsulfate 1 MG/ML 5 ML Syringe ONE (17:00)
[2018-11-17] MEDS ORDERED: Succinylcholine 200 MG/10 ML MDV ONE (17:00)
[2018-11-17] MEDS ORDERED: Lactated Ringers 1,000 ML ONE (17:54)
[2018-11-17] MEDS ORDERED: Acetaminophen/oxyCODONE 325-5 MG Tab PO PRN ×2 (18:01→18:05)
[2018-11-17] MEDS ORDERED: Morphine 2 MG/ML Syringe IVPUSH PRN (18:07)
[2018-11-17] MEDS ORDERED: Morphine 2 MG/ML Syringe IM ONE (18:09)
[2018-11-17] MEDS: Acetaminophen 325 MG Tab PO SCH ×2 (19:48→23:52)
[2018-11-17] MEDS ORDERED: Vancomycin 1 GM SDV ONE (19:50)
[2018-11-17] MEDS ORDERED: Vancomycin 2 GM in Sodium Chloride 0.9% 500 ML IV ONE (20:00)
[2018-11-17] MEDS: Tamsulosin 0.4 MG Cap.ER PO SCH (20:21)
[2018-11-17] MEDS: levETIRAcetam 250 MG Tab PO SCH (20:36)
[2018-11-17] MEDS: Nozin Nasal Sanitizer NASBOTH SCH (20:37)
[2018-11-17] MEDS ORDERED: Nozin Nasal Sanitizer NASBOTH SCH (21:00)
[2018-11-18] MEDS: Lactated Ringers 1,000 ML IV SCH ×2 (04:09→15:34)
[2018-11-18] MEDS: Acetaminophen 325 MG Tab PO SCH ×3 (06:10→18:13)
[2018-11-18] MEDS: Sodium Chloride 0.65% Nasal Spray 45 ML Bottle NASBOTH SCH ×2 (08:00→09:59)
[2018-11-18] MEDS ORDERED: [UNRECOGNIZED DRUG - OTHER] IV SCH (09:00)
[2018-11-18] MEDS: Nozin Nasal Sanitizer NASBOTH SCH ×2 (09:59→20:49)
[2018-11-18] MEDS: amLODIPine 5 MG Tab PO SCH (09:59)
[2018-11-18] MEDS: Pantoprazole 40 MG Tab.CR PO SCH (10:00)
[2018-11-18] MEDS: Multivitamins with Iron/Calcium/Folic Acid/Minerals Tab PO SCH (10:00)
[2018-11-18] MEDS: Hydrochlorothiazide 25 MG Tab PO SCH (10:00)
[2018-11-18] MEDS: Lisinopril 20 MG Tab PO SCH (10:00)
[2018-11-18] MEDS: levETIRAcetam 250 MG Tab PO SCH ×2 (10:02→20:50)
[2018-11-18] MEDS: LORATADINE PO SCH (10:04)
[2018-11-18] MEDS: PSEUDOEPHEDRINE PO SCH (10:04)
[2018-11-18] MEDS: Warfarin 5 MG Tab PO SCH (12:51)
--- NOTE | 2018-11-18 13:17 | PCM.SURGPN ---
- General Info Date of Service: 11/18/18 Date of Surgery/Procedure: 11/17/18 POD#: 1 Post-Op Diagnosis: Periprosthetic injfection left hip Functional Status: Reports: Pain Controlled - Review of Systems HEENT: Reports: No Symptoms Pulmonary: Reports: No Symptoms Cardiovascular: Reports: No Symptoms Gastrointestinal: Reports: No Symptoms Genitourinary: Reports: No Symptoms Musculoskeletal: Reports: Leg Pain Skin: Reports: No Symptoms Neurological: Reports: No Symptoms Psychiatric: Reports: No Symptoms - Patient Data Vitals - Most Recent: Last Vital Signs Temp 36.2 C 11/18/18 10:55 Pulse 77 11/18/18 10:55 Resp 18 11/18/18 10:55 BP 117/62 11/18/18 10:55 Pulse Ox 91 L 11/18/18 10:55 Weight - Most Recent: 122.47 kg I&O - Last 24 Hours: Intake & Output 11/17/18 11/18/18 11/18/18 22:59 06:59 14:59 Intake Total 1230 1328 700 Output Total 315 905 270 Balance 915 423 430 Lab Results Last 24 Hrs: Laboratory Results - last 24 hr 11/18/18 Range/Units 05:07 WBC 11.8 H (4.5-11.0) K/uL RBC 4.23 L (4.30-5.90) M/uL Hgb 9.9 L (12.0-15.0) g/dL Hct 33.9 L (40.0-54.0) % MCV 80 (80-98) fL MCH 23 L (27-31) pg MCHC 29 L (32-36) % Plt Count 272 (150-400) K/uL Myles Results Last 24 Hrs: Microbiology 11/17/18 17:49 Gram Stain - Final Hip, Left Med Orders - Current: Current Medications Acetaminophen (Tylenol) 650 mg PO Q6H [facility] Stop: 12/01/18 12:31 Last Admin: 11/18/18 12:51 Dose: 650 mg Acetaminophen (Tylenol) 650 mg PO Q6H PRN PRN Reason: PAIN Amlodipine Besylate (Norvasc) 5 mg PO DAILY [facility] Last Admin: 11/18/18 09:59 Dose: 5 mg Bandage/Support Products ( Nasal Relay Record Clerk) 1 applic NASBOTH BID [facility] Stop: 11/24/18 09:01 Last Admin: 11/18/18 09:59 Dose: 1 applic Hydrochlorothiazide (Hydrochlorothiazide) 25 mg PO DAILY [facility] Last Admin: 11/18/18 10:00 Dose: 25 mg Lactated Ringer's (Ringers, Lactated) 1,000 mls @ 100 mls/hr IV ASDIRECTED [facility] Last Admin: 11/18/18 04:09 Dose: 100 mls/hr Vancomycin HCl 1.75 gm/ Sodium (Chloride) 250 mls @ 166.667 mls/hr IV Q18H [facility] Levetiracetam (Keppra) 500 mg PO BID [facility] Last Admin: 11/18/18 10:02 Dose: 500 mg Lisinopril (Prinivil) 40 mg PO DAILY [facility] Last Admin: 11/18/18 10:00 Dose: 40 mg Morphine Sulfate (Morphine) 2 mg IVPUSH Q1H PRN PRN Reason: Pain (severe 7-10) Multivitamins/Minerals (Thera M Plus) 1 tab PO DAILY [facility] Last Admin: 11/18/18 10:00 Dose: 1 tab Naproxen (Naproxen Sodium) 220 mg PO Q12H [facility] Last Admin: 11/18/18 10:00 Dose: 220 mg Nitroglycerin (Nitrostat) 0.4 mg SL ASDIRECTED PRN PRN Reason: Chest Pain Oxycodone HCl (Oxycodone) 5 mg PO Q4H PRN PRN Reason: Pain (moderate 4-6) Pantoprazole Sodium (Protonix) 40 mg PO DAILY@0730 [facility] Last Admin: 11/18/18 10:00 Dose: 40 mg Loratadine/Pseudoephedrine ( Claritin-D 24 Hour Tablet)Pom 0 each PO DAILY [facility] Last Admin: 11/18/18 10:04 Dose: Not Given Senna/Docusate Sodium (Senna Plus) 2 tab PO BEDTIME [facility] Last Admin: 11/17/18 20:21 Dose: 2 tab Sodium Chloride (Rabun Nasal [place]) 0 ml NASBOTH DAILY [facility] Last Admin: 11/18/18 09:59 Dose: 1 spray Tamsulosin HCl (Flomax) 0.4 mg PO BEDTIME [facility] Last Admin: 11/17/18 20:21 Dose: 0.4 mg Warfarin Sodium (Coumadin) 5 mg PO DAILY@1300 [facility] Last Admin: 11/18/18 12:51 Dose: 5 mg Discontinued Medications Bupivacaine HCl (Marcaine 0.5%) Confirm Administered Dose 50 ml .ROUTE .STK-MED ONE Stop: 11/17/18 14:05 Last Admin: 11/17/18 17:16 Dose: 50 ml Bupivacaine HCl (Marcaine 0.5%) Confirm Administered Dose 50 ml .ROUTE .STK-MED ONE Stop: 11/17/18 16:27 Dexamethasone (Dexamethasone) Confirm Administered Dose 4 mg .ROUTE .STK-MED ONE Stop: 11/17/18 17:01 Fentanyl (Sublimaze) Confirm Administered Dose 100 mcg .ROUTE .STK-MED ONE Stop: 11/17/18 15:42 Fentanyl (Sublimaze) Confirm Administered Dose 250 mcg .ROUTE .STK-MED ONE Stop: 11/17/18 16:58 Gentamicin Sulfate (Gentamicin) Confirm Administered Dose 240 mg .ROUTE .STK- MED ONE Stop: 11/17/18 14:05 Glycopyrrolate (Robinul) Confirm Administered Dose 1 mg .ROUTE .STK-MED ONE Stop: 11/17/18 17:01 Cefazolin Sodium/Dextrose 2 gm (/ Premix) 50 mls @ 100 mls/hr IV Q8H [facility] Stop: 11/17/18 20:29 Last Admin: 11/17/18 19:47 Dose: 100 mls/hr Lactated Ringer's (Ringers, Lactated) Confirm Administered Dose 1,000 mls @ as directed .ROUTE .STK-MED ONE Stop: 11/17/18 17:55 Vancomycin HCl 1 gm/ Sodium (Chloride) 250 mls @ 150 mls/hr IV Q12H [facility] Last Admin: 11/18/18 07:56 Dose: Not Given Vancomycin HCl 2 gm/ Sodium (Chloride) 500 mls @ 250 mls/hr IV ONETIME ONE Stop: 11/17/18 21:59 Last Admin: 11/17/18 20:30 Dose: 250 mls/hr Midazolam HCl (Versed 1 Mg/Ml) Confirm Administered Dose 2 mg .ROUTE .STK-MED ONE Stop: 11/17/18 15:42 Morphine Sulfate (Morphine) 2 mg IM ONETIME ONE Stop: 11/17/18 18:10 Last Admin: 11/17/18 18:18 Dose: 2 mg Neostigmine Methylsulfate (Neostigmine) Confirm Administered Dose 5 mg .ROUTE .STK-MED ONE Stop: 11/17/18 17:01 Vanco Dosing Per (Pharmacy) 0 each IV DAILY [facility] Last Admin: 11/18/18 10:12 Dose: Not Given Ondansetron HCl (Zofran) Confirm Administered Dose 4 mg .ROUTE .STK-MED ONE Stop: 11/17/18 17:01 Oxycodone/Acetaminophen (Percocet 325-5 Mg) 1 tab PO Q6H PRN PRN Reason: Pain Oxycodone/Acetaminophen (Percocet 325-5 Mg) 1 - 2 tab PO Q6H PRN PRN Reason: Pain (severe 7-10) Last Admin: 11/18/18 08:07 Dose: 1 tab Povidone Iodine (Betadine 10% Soln) Confirm Administered Dose 1 ml .ROUTE .STK- MED ONE Stop: 11/17/18 14:10 Last Admin: 11/17/18 17:17 Dose: 118 ml Propofol (Diprivan 20 Ml) Confirm Administered Dose 200 mg .ROUTE .STK-MED ONE Stop: 11/17/18 15:42 Rocuronium [place] (Zemuron) Confirm Administered Dose 50 mg .ROUTE .STK-MED ONE Stop: 11/17/18 17:01 Succinylcholine Chloride (Quelicin) Confirm Administered Dose 200 mg .ROUTE .STK -MED ONE Stop: 11/17/18 17:01 Vancomycin HCl (Vancomycin) Confirm Administered Dose 2 gm .ROUTE .STK-MED ONE Stop: 11/17/18 19:51 Last Admin: 11/17/18 20:37 Dose: Not Given - Exam Wound/Incisions: Dressing Dry and Intact General: Alert, Oriented HEENT: Pupils Equal Neck: Supple Lungs: Clear to Auscultation, Normal Respiratory Effort Cardiovascular: Regular Rate, Regular Rhythm GI/Abdominal Exam: Normal Bowel Sounds, Soft, Non-Tender, No Organomegaly, No Distention, No Abnormal Bruit, No Mass, Pelvis Stable Extremities: Leg Pain Skin: Warm Neurological: No New Focal Deficit Psy/Mental Status: Alert, Normal Affect, Normal Mood - Problem List & Annotations (1) Status post total hip replacement, left SNOMED Code(s): 867449886827, 157209412806 Code(s): Z96.642 - PRESENCE OF LEFT ARTIFICIAL HIP JOINT Status: Acute Current Visit: No (2) Status post incision and drainage SNOMED Code(s): 792181863, 085789711 Code(s): Z98.890 - OTHER SPECIFIED POSTPROCEDURAL STATES Status: Acute Current Visit: Yes Annotation/Comment:: Left hip (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 SNOMED Code(s): 036556425 Code(s): T84.59XA - INFECT/INFLM REACTION DUE TO OTH INTERNAL JOINT PROSTH, INIT; Z96.649 - PRESENCE OF UNSPECIFIED ARTIFICIAL HIP JOINT Status: Acute Current Visit: Yes - Problem List Review Problem List Initiated/Reviewed/Updated: Yes - My Orders Last 24 Hours: Active Orders 24 hr Category Date Time Status Dietary Supplements [RC] BIDMEALS Care 11/17/18 18:07 Active Regular Diet [DIET] Diet 11/18/18 Breakfast Active CULTURE ANAEROBIC [RM] Routine Lab 11/17/18 17:49 Results CULTURE WOUND + SMEAR [RM] Routine Lab 11/17/18 17:49 Results VANCOMYCIN TROUGH [CHEM] Timed Lab 11/19/18 07:45 Ordered Acetaminophen [Tylenol] Med 11/17/18 18:30 Active 650 mg PO Q6H Acetaminophen [Tylenol] Med 12/01/18 18:30 Active 650 mg PO Q6H PRN Docusate Sodium/Sennosides [Senna Plus] Med 11/17/18 21:00 Active 2 tab PO BEDTIME Lactated Ringers [Ringers, Lactated] 1,000 ml Med 11/17/18 14:15 Active IV ASDIRECTED Lisinopril [Prinivil] Med 11/18/18 09:00 Active 40 mg PO DAILY Morphine Med 11/17/18 18:07 Active 2 mg IVPUSH Q1H PRN Multivitamins w-Iron/Ca/FA/Min [Thera M Plus] Med 11/18/18 09:00 Active 1 tab PO DAILY Naproxen Sodium Med 11/17/18 19:00 Active 220 mg PO Q12H Nozin [ Nasal Relay Record Clerk] Med 11/17/18 21:00 Active 1 applic NASBOTH BID Pantoprazole [ProTONIX] Med 11/18/18 07:30 Active 40 mg PO DAILY@0730 Patient's Own Medication [Ptom] Med 11/17/18 18:15 Active 0 each PO DAILY Sodium Chloride 0.65% [Rabun Nasal [place]] Med 11/17/18 18:15 Active 0 ml NASBOTH DAILY Tamsulosin [Flomax] Med 11/17/18 21:00 Active 0.4 mg PO BEDTIME Vancomycin 1.75 gm Med 11/18/18 14:00 Active Sodium Chloride 0.9% [Normal Saline] 250 ml IV Q18H Warfarin [Coumadin] Med 11/18/18 13:00 Active 5 mg PO DAILY@1300 amLODIPine [Norvasc] Med 11/18/18 09:00 Active 5 mg PO DAILY hydroCHLOROthiazide Med 11/18/18 09:00 Active 25 mg PO DAILY levETIRAcetam [Keppra] Med 11/17/18 21:00 Active 500 mg PO BID oxyCODONE Med 11/18/18 13:10 Ordered 10 mg PO Q4H PRN oxyCODONE Med 11/18/18 13:08 Ordered 5 mg PO Q4H PRN Medication Orders Acetaminophen (Tylenol) 650 mg PO Q6H [facility] Stop: 12/01/18 12:31 Last Admin: 11/18/18 12:51 Dose: 650 mg Admin: 11/18/18 06:10 Dose: 650 mg Admin: 11/17/18 23:52 Dose: 650 mg Admin: 11/17/18 19:48 Dose: 650 mg Acetaminophen (Tylenol) 650 mg PO Q6H PRN PRN Reason: PAIN Amlodipine Besylate (Norvasc) 5 mg PO DAILY [facility] Last Admin: 11/18/18 09:59 Dose: 5 mg Bandage/Support Products ( Nasal Relay Record Clerk) 1 applic NASBOTH BID [facility] Stop: 11/24/18 09:01 Last Admin: 11/18/18 09:59 Dose: 1 applic Admin: 11/17/18 20:37 Dose: 1 applic Hydrochlorothiazide (Hydrochlorothiazide) 25 mg PO DAILY [facility] Last Admin: 11/18/18 10:00 Dose: 25 mg Lactated Ringer's (Ringers, Lactated) 1,000 mls @ 100 mls/hr IV ASDIRECTED [facility] Last Admin: 11/18/18 04:09 Dose: 100 mls/hr Infusion: 11/18/18 00:29 Dose: 100 mls/hr Admin: 11/17/18 14:29 Dose: 100 mls/hr Vancomycin HCl 1.75 gm/ Sodium (Chloride) 250 mls @ 166.667 mls/hr IV Q18H [facility] Levetiracetam (Keppra) 500 mg PO BID [facility] Last Admin: 11/18/18 10:02 Dose: 500 mg Admin: 11/17/18 20:36 Dose: 500 mg Lisinopril (Prinivil) 40 mg PO DAILY [facility] Last Admin: 11/18/18 10:00 Dose: 40 mg Morphine Sulfate (Morphine) 2 mg IVPUSH Q1H PRN PRN Reason: Pain (severe 7-10) Multivitamins/Minerals (Thera M Plus) 1 tab PO DAILY [facility] Last Admin: 11/18/18 10:00 Dose: 1 tab Naproxen (Naproxen Sodium) 220 mg PO Q12H [facility] Last Admin: 11/18/18 10:00 Dose: 220 mg Admin: 11/18/18 08:08 Dose: 220 mg Admin: 11/17/18 19:48 Dose: 220 mg Nitroglycerin (Nitrostat) 0.4 mg SL ASDIRECTED PRN PRN Reason: Chest Pain Oxycodone HCl (Oxycodone) 5 mg PO Q4H PRN PRN Reason: Pain (moderate 4-6) Pantoprazole Sodium (Protonix) 40 mg PO DAILY@0730 [facility] Last Admin: 11/18/18 10:00 Dose: 40 mg Loratadine/Pseudoephedrine ( Claritin-D 24 Hour Tablet)Pom 0 each PO DAILY [facility] Last Admin: 11/18/18 10:04 Dose: Admin: 11/18/18 10:04 Dose: Not Given Senna/Docusate Sodium (Senna Plus) 2 tab PO BEDTIME [facility] Last Admin: 11/17/18 20:21 Dose: 2 tab Sodium Chloride (Rabun Nasal [place]) 0 ml NASBOTH DAILY [facility] Last Admin: 11/18/18 09:59 Dose: 1 spray Admin: 11/18/18 08:00 Dose: Not Given Tamsulosin HCl (Flomax) 0.4 mg PO BEDTIME [facility] Last Admin: 11/17/18 20:21 Dose: 0.4 mg Warfarin Sodium (Coumadin) 5 mg PO DAILY@1300 [facility] Last Admin: 11/18/18 12:51 Dose: 5 mg - Assessment Assessment (Free Text/Narrative):: Stable post op I&D left hip. H/H ok, WBC elevated. Initial culture with Staph Epi, senitive to Vanco. Gm Stain from surgery with cocci and Gm neg rods. Culture and sensitivity pending. - Plan Plan (Free Text/Narrative):: Continue Vanco, check levels with next dose. Check PT/INR and chemistry in AM. Likely D/C drain tomorrow. Adjust antibiotics per pending culture.
[2018-11-18] MEDS: oxyCODONE 5 MG Tab PO PRN ×3 (13:29→21:38)
--- NOTE | 2018-11-18 14:01 | OR ---
DATE OF PROCEDURE: 11/17/2018 PREOPERATIVE DIAGNOSIS: Periprosthetic infection, left hip. POSTOPERATIVE DIAGNOSIS: Periprosthetic infection, left hip. PROCEDURE: Irrigation and debridement, left hip. ANESTHESIA: General. INDICATIONS: Mr. Correia is a 78-year-old gentleman, who underwent a left total hip arthroplasty on 11/09/2018. He was discharged from the hospital and [facility]. He is having some persistent drainage from the inferior aspect of his surgical incision, and over the last day or two has been having increased pain and warmth around the incision. No fevers, chills, or night sweats. He is seen in clinic today and admitted for periprosthetic infection. The culture from [facility] shows Gram- positive cocci. DESCRIPTION OF PROCEDURE: After adequate anesthesia was obtained, the patient was placed in a lateral decubitus position and secured with the hip positioner. Left hip incision showed some mild serous drainage from the inferior aspect. There was no gross purulence. Skin around the incision is warm to the touch, but has minimal erythema. The leg was prepped and draped in a sterile fashion. Previous incision was opened. A small hematoma was present in the subcutaneous tissues with no gross purulence. This was debrided using a Davies elevator in the soft tissues and a surgical gauze. It was then thoroughly irrigated with the pulse lavage. Fascia was then opened and a seroma was present deep. New cultures were taken of this. No gross purulence was identified. This was thoroughly irrigated. The surfaces were debrided of a thin film using a Davies elevator. The hip was dislocated and the remainder of the joint was thoroughly irrigated. Further debridement continued with use of a rongeur in the soft tissues surrounding the stem in the femur and the acetabular cup. This was irrigated again with pulse lavage. Once thorough debridement was completed, a dilute solution of Betadine was placed into the wound and let sit for approximately 4 minutes. This was then irrigated. A drain was placed beneath the tensor fascia , brought up through a separate stab incision. Fascia was then closed in a running fashion with #1 Tycron. Skin was closed with 2-0 Vicryl and surgical joaquin. The drain was secured with Steri-Strips. The wound was then covered with a negative wound dressing, the KAYLEE 7 unit. He was taken from the operating room in stable condition. Ry Prochaska, MD /[id number] MTDWali
[2018-11-18] MEDS: Tamsulosin 0.4 MG Cap.ER PO SCH (20:49)
[2018-11-19] MEDS: Lactated Ringers 1,000 ML IV SCH ×2 (01:32→12:29)
[2018-11-19] MEDS: Acetaminophen 325 MG Tab PO SCH ×5 (01:50→23:47)
[2018-11-19] MEDS: oxyCODONE 5 MG Tab PO PRN ×2 (05:45→17:41)
[2018-11-19] MEDS: Pantoprazole 40 MG Tab.CR PO SCH (07:35)
[2018-11-19] MEDS: Nozin Nasal Sanitizer NASBOTH SCH ×2 (08:42→20:53)
[2018-11-19] MEDS: levETIRAcetam 250 MG Tab PO SCH ×2 (08:43→20:54)
[2018-11-19] MEDS: Lisinopril 20 MG Tab PO SCH (08:43)
[2018-11-19] MEDS: Multivitamins with Iron/Calcium/Folic Acid/Minerals Tab PO SCH (08:44)
[2018-11-19] MEDS: amLODIPine 5 MG Tab PO SCH (08:44)
[2018-11-19] MEDS: LORATADINE PO SCH (08:44)
[2018-11-19] MEDS: PSEUDOEPHEDRINE PO SCH (08:44)
[2018-11-19] MEDS: Hydrochlorothiazide 25 MG Tab PO SCH (08:45)
[2018-11-19] MEDS: Sodium Chloride 0.65% Nasal Spray 45 ML Bottle NASBOTH SCH (08:45)
[2018-11-19] MEDS ORDERED: Docusate Sodium 100 MG Cap PO PRN (11:29)
[2018-11-19] MEDS: Warfarin 5 MG Tab PO SCH (12:31)
[2018-11-19] MEDS ORDERED: Polyethylene Glycol 3350 Powder 17 GM Packet PO PRN (17:29)
[2018-11-19] MEDS: Tamsulosin 0.4 MG Cap.ER PO SCH (20:54)
[2018-11-20] MEDS: oxyCODONE 5 MG Tab PO PRN ×2 (02:44→13:53)
[2018-11-20] MEDS: Lactated Ringers 1,000 ML IV SCH ×2 (04:50→04:53)
[2018-11-20] MEDS: Acetaminophen 325 MG Tab PO SCH ×4 (08:05→23:57)
[2018-11-20] MEDS: levETIRAcetam 250 MG Tab PO SCH ×2 (08:06→20:40)
[2018-11-20] MEDS: amLODIPine 5 MG Tab PO SCH (08:06)
[2018-11-20] MEDS: Multivitamins with Iron/Calcium/Folic Acid/Minerals Tab PO SCH (08:06)
[2018-11-20] MEDS: Hydrochlorothiazide 25 MG Tab PO SCH (08:06)
[2018-11-20] MEDS: Pantoprazole 40 MG Tab.CR PO SCH (08:06)
[2018-11-20] MEDS: Lisinopril 20 MG Tab PO SCH (08:07)
[2018-11-20] MEDS: PSEUDOEPHEDRINE PO SCH (08:07)
[2018-11-20] MEDS: Nozin Nasal Sanitizer NASBOTH SCH ×2 (08:07→20:40)
[2018-11-20] MEDS: Sodium Chloride 0.65% Nasal Spray 45 ML Bottle NASBOTH SCH (08:07)
[2018-11-20] MEDS: LORATADINE PO SCH (08:07)
--- NOTE | 2018-11-20 10:07 | PCM.SURGPN ---
- General Info Date of Service: 11/19/18 POD#: 2 Functional Status: Reports: Pain Controlled, Tolerating Diet, Ambulating, Urinating - Review of Systems General: Reports: No Symptoms HEENT: Reports: No Symptoms Pulmonary: Reports: No Symptoms Cardiovascular: Reports: No Symptoms Gastrointestinal: Reports: Constipation Genitourinary: Reports: No Symptoms Neurological: Reports: No Symptoms Psychiatric: Reports: No Symptoms - Patient Data Vitals - Most Recent: Last Vital Signs Temp 36.4 C 11/20/18 07:47 Pulse 112 H 11/20/18 07:47 Resp 16 11/20/18 07:47 BP 117/61 11/20/18 08:07 Pulse Ox 95 11/20/18 07:47 Weight - Most Recent: 122.47 kg I&O - Last 24 Hours: Intake & Output 11/19/18 11/20/18 11/20/18 22:59 06:59 14:59 Intake Total 719 1209 480 Output Total 1175 945 900 Balance -456 264 -420 Myles Results Last 24 Hrs: Microbiology 11/17/18 17:49 Gram Stain - Final Hip, Left Wound Culture - Preliminary Anaerobic Culture - Preliminary NO GROWTH AFTER 1 DAY Med Orders - Current: Current Medications Acetaminophen (Tylenol) 650 mg PO Q6H [facility] Stop: 12/01/18 12:31 Last Admin: 11/20/18 08:05 Dose: 650 mg Acetaminophen (Tylenol) 650 mg PO Q6H PRN PRN Reason: PAIN Amlodipine Besylate (Norvasc) 5 mg PO DAILY [facility] Last Admin: 11/20/18 08:06 Dose: 5 mg Bandage/Support Products ( Nasal Equipment Driver) 1 applic NASBOTH BID [facility] Stop: 11/24/18 09:01 Last Admin: 11/20/18 08:07 Dose: 1 applic Docusate Sodium (Colace) 100 mg PO BID PRN PRN Reason: Constipation Last Admin: 11/19/18 12:31 Dose: 100 mg Hydrochlorothiazide (Hydrochlorothiazide) 25 mg PO DAILY [facility] Last Admin: 11/20/18 08:06 Dose: 25 mg Lactated Ringer's (Ringers, Lactated) 1,000 mls @ 100 mls/hr IV ASDIRECTED [facility] Last Admin: 11/20/18 04:53 Dose: 100 mls/hr Vancomycin HCl 1.75 gm/ Sodium (Chloride) 250 mls @ 166.667 mls/hr IV Q12H [facility] Last Admin: 11/20/18 08:12 Dose: 166.667 mls/hr Levetiracetam (Keppra) 500 mg PO BID [facility] Last Admin: 11/20/18 08:06 Dose: 500 mg Lisinopril (Prinivil) 40 mg PO DAILY [facility] Last Admin: 11/20/18 08:07 Dose: 40 mg Morphine Sulfate (Morphine) 2 mg IVPUSH Q1H PRN PRN Reason: Pain (severe 7-10) Multivitamins/Minerals (Thera M Plus) 1 tab PO DAILY [facility] Last Admin: 11/20/18 08:06 Dose: 1 tab Naproxen (Naproxen Sodium) 220 mg PO Q12H [facility] Last Admin: 11/20/18 08:05 Dose: 220 mg Nitroglycerin (Nitrostat) 0.4 mg SL ASDIRECTED PRN PRN Reason: Chest Pain Oxycodone HCl (Oxycodone) 5 mg PO Q4H PRN PRN Reason: Pain (moderate 4-6) Last Admin: 11/18/18 13:29 Dose: 5 mg Oxycodone HCl (Oxycodone) 10 mg PO Q4H PRN PRN Reason: Pain (severe 7-10) Last Admin: 11/20/18 02:44 Dose: 10 mg Pantoprazole Sodium (Protonix) 40 mg PO DAILY@0730 [facility] Last Admin: 11/20/18 08:06 Dose: 40 mg Loratadine/Pseudoephedrine ( Claritin-D 24 Hour Tablet)Pom 0 each PO DAILY [facility] Last Admin: 11/20/18 08:07 Dose: Not Given Polyethylene Glycol (Miralax) 17 gm PO BID PRN PRN Reason: Constipation Senna/Docusate Sodium (Senna Plus) 2 tab PO BEDTIME [facility] Last Admin: 11/19/18 20:54 Dose: 2 tab Sodium Chloride ([place] Nasal [place]) 0 ml NASBOTH DAILY [facility] Last Admin: 11/20/18 08:07 Dose: 1 spray Tamsulosin HCl (Flomax) 0.4 mg PO BEDTIME [facility] Last Admin: 11/19/18 20:54 Dose: 0.4 mg Warfarin Sodium (Coumadin) 5 mg PO DAILY@1300 [facility] Last Admin: 11/19/18 12:31 Dose: 5 mg Discontinued Medications Bupivacaine HCl (Marcaine 0.5%) Confirm Administered Dose 50 ml .ROUTE .STK-MED ONE Stop: 11/17/18 14:05 Last Admin: 11/17/18 17:16 Dose: 50 ml Bupivacaine HCl (Marcaine 0.5%) Confirm Administered Dose 50 ml .ROUTE .STK-MED ONE Stop: 11/17/18 16:27 Dexamethasone (Dexamethasone) Confirm Administered Dose 4 mg .ROUTE .STK-MED ONE Stop: 11/17/18 17:01 Fentanyl (Sublimaze) Confirm Administered Dose 100 mcg .ROUTE .STK-MED ONE Stop: 11/17/18 15:42 Fentanyl (Sublimaze) Confirm Administered Dose 250 mcg .ROUTE .STK-MED ONE Stop: 11/17/18 16:58 Gentamicin Sulfate (Gentamicin) Confirm Administered Dose 240 mg .ROUTE .STK- MED ONE Stop: 11/17/18 14:05 Glycopyrrolate (Robinul) Confirm Administered Dose 1 mg .ROUTE .STK-MED ONE Stop: 11/17/18 17:01 Cefazolin Sodium/Dextrose 2 gm (/ Premix) 50 mls @ 100 mls/hr IV Q8H [facility] Stop: 11/17/18 20:29 Last Admin: 11/17/18 19:47 Dose: 100 mls/hr Lactated Ringer's (Ringers, Lactated) Confirm Administered Dose 1,000 mls @ as directed .ROUTE .STK-MED ONE Stop: 11/17/18 17:55 Vancomycin HCl 1 gm/ Sodium (Chloride) 250 mls @ 150 mls/hr IV Q12H [facility] Last Admin: 11/18/18 07:56 Dose: Not Given Vancomycin HCl 2 gm/ Sodium (Chloride) 500 mls @ 250 mls/hr IV ONETIME ONE Stop: 11/17/18 21:59 Last Admin: 11/17/18 20:30 Dose: 250 mls/hr Vancomycin HCl 1.75 gm/ Sodium (Chloride) 250 mls @ 166.667 mls/hr IV Q18H [facility] Stop: 11/19/18 10:00 Last Admin: 11/19/18 07:35 Dose: 166.667 mls/hr Lidocaine HCl (Xylocaine-Mpf 1%) 5 ml INJECT ONETIME ONE Stop: 11/19/18 15:52 Last Admin: 11/19/18 16:13 Dose: 5 ml Midazolam HCl (Versed 1 Mg/Ml) Confirm Administered Dose 2 mg .ROUTE .STK-MED ONE Stop: 11/17/18 15:42 Morphine Sulfate (Morphine) 2 mg IM ONETIME ONE Stop: 11/17/18 18:10 Last Admin: 11/17/18 18:18 Dose: 2 mg Neostigmine Methylsulfate (Neostigmine) Confirm Administered Dose 5 mg .ROUTE .STK-MED ONE Stop: 11/17/18 17:01 Vanco Dosing Per (Pharmacy) 0 each IV DAILY [facility] Last Admin: 11/18/18 10:12 Dose: Not Given Ondansetron HCl (Zofran) Confirm Administered Dose 4 mg .ROUTE .STK-MED ONE Stop: 11/17/18 17:01 Oxycodone/Acetaminophen (Percocet 325-5 Mg) 1 tab PO Q6H PRN PRN Reason: Pain Oxycodone/Acetaminophen (Percocet 325-5 Mg) 1 - 2 tab PO Q6H PRN PRN Reason: Pain (severe 7-10) Last Admin: 11/18/18 08:07 Dose: 1 tab Povidone Iodine (Betadine 10% Soln) Confirm Administered Dose 1 ml .ROUTE .STK- MED ONE Stop: 11/17/18 14:10 Last Admin: 11/17/18 17:17 Dose: 118 ml Propofol (Diprivan 20 Ml) Confirm Administered Dose 200 mg .ROUTE .STK-MED ONE Stop: 11/17/18 15:42 Rocuronium Grahn (Zemuron) Confirm Administered Dose 50 mg .ROUTE .STK-MED ONE Stop: 11/17/18 17:01 Succinylcholine Chloride (Quelicin) Confirm Administered Dose 200 mg .ROUTE .STK -MED ONE Stop: 11/17/18 17:01 Vancomycin HCl (Vancomycin) Confirm Administered Dose 2 gm .ROUTE .STK-MED ONE Stop: 11/17/18 19:51 Last Admin: 11/17/18 20:37 Dose: Not Given - Exam Wound/Incisions: Drainage General: Alert, Oriented HEENT: Pupils Equal Lungs: Clear to Auscultation, Normal Respiratory Effort Cardiovascular: Regular Rate, Regular Rhythm GI/Abdominal Exam: Normal Bowel Sounds, Soft, Non-Tender, No Organomegaly, No Distention, No Abnormal Bruit, No Mass, Pelvis Stable Skin: Warm, Dry Neurological: No New Focal Deficit Psy/Mental Status: Alert, Normal Affect, Normal Mood Physical Findings Comment:: Wound dressing intact. - Problem List & Annotations (1) Status post total hip replacement, left SNOMED Code(s): 690164719684, 012535370823 Code(s): Z96.642 - PRESENCE OF LEFT ARTIFICIAL HIP JOINT Status: Acute Current Visit: No (2) Status post incision and drainage SNOMED Code(s): 941000054, 592412582 Code(s): Z98.890 - OTHER SPECIFIED POSTPROCEDURAL STATES Status: Acute Current Visit: Yes Annotation/Comment:: Left hip (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 SNOMED Code(s): 911985021 Code(s): T84.59XA - INFECT/INFLM REACTION DUE TO OTH INTERNAL JOINT PROSTH, INIT; Z96.649 - PRESENCE OF UNSPECIFIED ARTIFICIAL HIP JOINT Status: Acute Current Visit: Yes (4) Anemia following surgery SNOMED Code(s): 158154721, 943756624 Code(s): D64.9 - ANEMIA, UNSPECIFIED Status: Acute Current Visit: No (5) Atrial fibrillation SNOMED Code(s): 54769268 Code(s): I48.91 - UNSPECIFIED ATRIAL FIBRILLATION Status: Chronic Current Visit: No Qualifiers: Atrial fibrillation type: chronic Qualified Code(s): I48.2 - Chronic atrial fibrillation - Problem List Review Problem List Initiated/Reviewed/Updated: Yes - My Orders Last 24 Hours: Active Orders 24 hr Category Date Time Status Central Line Assessment [RC] QSHIFT Care 11/19/18 17:28 Active Acetaminophen [Tylenol] Med 12/01/18 18:30 Active 650 mg PO Q6H PRN Docusate Sodium [Colace] Med 11/19/18 11:29 Active 100 mg PO BID PRN Polyethylene Glycol 3350 [MiraLAX] Med 11/19/18 17:29 Active 17 gm PO BID PRN Vancomycin 1.75 gm Med 11/19/18 20:00 Active Sodium Chloride 0.9% [Normal Saline] 250 ml IV Q12H Central Line PICC Insertion [Central Venous Line Oth 11/20/18 08:00 Ordered Insertion] [OM.PC] Routine Medication Orders Acetaminophen (Tylenol) 650 mg PO Q6H [facility] Stop: 12/01/18 12:31 Last Admin: 11/20/18 08:05 Dose: 650 mg Admin: 11/19/18 23:47 Dose: 650 mg Admin: 11/19/18 19:32 Dose: 650 mg Admin: 11/19/18 11:33 Dose: 650 mg Admin: 11/19/18 05:45 Dose: 650 mg Admin: 11/19/18 01:50 Dose: 650 mg Admin: 11/18/18 18:13 Dose: 650 mg Admin: 11/18/18 12:51 Dose: 650 mg Admin: 11/18/18 06:10 Dose: 650 mg Admin: 11/17/18 23:52 Dose: 650 mg Admin: 11/17/18 19:48 Dose: 650 mg Acetaminophen (Tylenol) 650 mg PO Q6H PRN PRN Reason: PAIN Amlodipine Besylate (Norvasc) 5 mg PO DAILY [facility] Last Admin: 11/20/18 08:06 Dose: 5 mg Admin: 11/19/18 08:44 Dose: 5 mg Admin: 11/18/18 09:59 Dose: 5 mg Bandage/Support Products ( Nasal Equipment Driver) 1 applic NASBOTH BID [facility] Stop: 11/24/18 09:01 Last Admin: 11/20/18 08:07 Dose: 1 applic Admin: 11/19/18 20:53 Dose: 1 applic Admin: 11/19/18 08:42 Dose: 1 applic Admin: 11/18/18 20:49 Dose: 1 applic Admin: 11/18/18 09:59 Dose: 1 applic Admin: 11/17/18 20:37 Dose: 1 applic Docusate Sodium (Colace) 100 mg PO BID PRN PRN Reason: Constipation Last Admin: 11/19/18 12:31 Dose: 100 mg Hydrochlorothiazide (Hydrochlorothiazide) 25 mg PO DAILY [facility] Last Admin: 11/20/18 08:06 Dose: 25 mg Admin: 11/19/18 08:45 Dose: 25 mg Admin: 11/18/18 10:00 Dose: 25 mg Lactated Ringer's (Ringers, Lactated) 1,000 mls @ 100 mls/hr IV ASDIRECTED [facility] Last Admin: 11/20/18 04:53 Dose: 100 mls/hr Infusion: 11/19/18 22:29 Dose: 100 mls/hr Admin: 11/19/18 12:29 Dose: 100 mls/hr Infusion: 11/19/18 11:32 Dose: 100 mls/hr Admin: 11/19/18 01:32 Dose: 100 mls/hr Infusion: 11/19/18 01:32 Dose: 100 mls/hr Admin: 11/18/18 15:34 Dose: 100 mls/hr Infusion: 11/18/18 14:09 Dose: 100 mls/hr Admin: 11/18/18 04:09 Dose: 100 mls/hr Infusion: 11/18/18 00:29 Dose: 100 mls/hr Admin: 11/17/18 14:29 Dose: 100 mls/hr Vancomycin HCl 1.75 gm/ Sodium (Chloride) 250 mls @ 166.667 mls/hr IV Q12H [facility] Last Admin: 11/20/18 08:12 Dose: 166.667 mls/hr Admin: 11/19/18 19:33 Dose: 166.667 mls/hr Levetiracetam (Keppra) 500 mg PO BID [facility] Last Admin: 11/20/18 08:06 Dose: 500 mg Admin: 11/19/18 20:54 Dose: 500 mg Admin: 11/19/18 08:43 Dose: 500 mg Admin: 11/18/18 20:50 Dose: 500 mg Admin: 11/18/18 10:02 Dose: 500 mg Admin: 11/17/18 20:36 Dose: 500 mg Lisinopril (Prinivil) 40 mg PO DAILY [facility] Last Admin: 11/20/18 08:07 Dose: 40 mg Admin: 11/19/18 08:43 Dose: 40 mg Admin: 11/18/18 10:00 Dose: 40 mg Morphine Sulfate (Morphine) 2 mg IVPUSH Q1H PRN PRN Reason: Pain (severe 7-10) Multivitamins/Minerals (Thera M Plus) 1 tab PO DAILY [facility] Last Admin: 11/20/18 08:06 Dose: 1 tab Admin: 11/19/18 08:44 Dose: 1 tab Admin: 11/18/18 10:00 Dose: 1 tab Naproxen (Naproxen Sodium) 220 mg PO Q12H [facility] Last Admin: 11/20/18 08:05 Dose: 220 mg Admin: 11/19/18 19:33 Dose: 220 mg Admin: 11/19/18 07:35 Dose: 220 mg Admin: 11/18/18 20:48 Dose: 220 mg Admin: 11/18/18 10:00 Dose: 220 mg Admin: 11/18/18 08:08 Dose: 220 mg Admin: 11/17/18 19:48 Dose: 220 mg Nitroglycerin (Nitrostat) 0.4 mg SL ASDIRECTED PRN PRN Reason: Chest Pain Oxycodone HCl (Oxycodone) 5 mg PO Q4H PRN PRN Reason: Pain (moderate 4-6) Last Admin: 11/18/18 13:29 Dose: 5 mg Oxycodone HCl (Oxycodone) 10 mg PO Q4H PRN PRN Reason: Pain (severe 7-10) Last Admin: 11/20/18 02:44 Dose: 10 mg Admin: 11/19/18 17:41 Dose: 10 mg Admin: 11/19/18 05:45 Dose: 10 mg Admin: 11/18/18 21:38 Dose: 10 mg Admin: 11/18/18 17:14 Dose: 10 mg Pantoprazole Sodium (Protonix) 40 mg PO DAILY@0730 [facility] Last Admin: 11/20/18 08:06 Dose: 40 mg Admin: 11/19/18 07:35 Dose: 40 mg Admin: 11/18/18 10:00 Dose: 40 mg Loratadine/Pseudoephedrine ( Claritin-D 24 Hour Tablet)Pom 0 each PO DAILY [facility] Last Admin: 11/20/18 08:07 Dose: Admin: 11/19/18 08:44 Dose: Admin: 11/18/18 10:04 Dose: Admin: 11/18/18 10:04 Dose: Not Given Polyethylene Glycol (Miralax) 17 gm PO BID PRN PRN Reason: Constipation Senna/Docusate Sodium (Senna Plus) 2 tab PO BEDTIME [facility] Last Admin: 11/19/18 20:54 Dose: 2 tab Admin: 11/18/18 20:49 Dose: 2 tab Admin: 11/17/18 20:21 Dose: 2 tab Sodium Chloride ([place] Nasal [place]) 0 ml NASBOTH DAILY [facility] Last Admin: 11/20/18 08:07 Dose: 1 spray Admin: 11/19/18 08:45 Dose: 1 spray Admin: 11/18/18 09:59 Dose: 1 spray Admin: 11/18/18 08:00 Dose: Not Given Tamsulosin HCl (Flomax) 0.4 mg PO BEDTIME [facility] Last Admin: 11/19/18 20:54 Dose: 0.4 mg Admin: 11/18/18 20:49 Dose: 0.4 mg Admin: 11/17/18 20:21 Dose: 0.4 mg Warfarin Sodium (Coumadin) 5 mg PO DAILY@1300 [facility] Last Admin: 11/19/18 12:31 Dose: 5 mg Admin: 11/18/18 12:51 Dose: 5 mg - Assessment Assessment (Free Text/Narrative):: Feeling better today. Up in [place] with PT. Back on Coumadin. Cultures pending. - Plan Plan (Free Text/Narrative):: Drain pulled today. Check Vanco level. Dressing change tomorrow. Should have preliminary culture results tomorrow.
--- NOTE | 2018-11-20 12:24 | PCM.SURGPN ---
- General Info Date of Service: 11/20/18 Date of Surgery/Procedure: 11/17/18 POD#: 3 Functional Status: Reports: Pain Controlled, Tolerating Diet, Ambulating, Urinating - Review of Systems General: Reports: No Symptoms HEENT: Reports: No Symptoms Pulmonary: Reports: No Symptoms Cardiovascular: Reports: No Symptoms Gastrointestinal: Reports: No Symptoms Genitourinary: Reports: No Symptoms Musculoskeletal: Reports: Leg Pain - Patient Data Vitals - Most Recent: Last Vital Signs Temp 36.4 C 11/20/18 07:47 Pulse 112 H 11/20/18 07:47 Resp 16 11/20/18 07:47 BP 117/61 11/20/18 08:07 Pulse Ox 95 11/20/18 07:47 Weight - Most Recent: 122.47 kg I&O - Last 24 Hours: Intake & Output 11/19/18 11/20/18 11/20/18 22:59 06:59 14:59 Intake Total 719 1209 480 Output Total 1175 945 900 Balance -456 264 -420 Myles Results Last 24 Hrs: Microbiology 11/17/18 17:49 Gram Stain - Final Hip, Left Wound Culture - Preliminary Anaerobic Culture - Preliminary NO GROWTH AFTER 1 DAY Med Orders - Current: Current Medications Acetaminophen (Tylenol) 650 mg PO Q6H [facility] Stop: 12/01/18 12:31 Last Admin: 11/20/18 08:05 Dose: 650 mg Acetaminophen (Tylenol) 650 mg PO Q6H PRN PRN Reason: PAIN Amlodipine Besylate (Norvasc) 5 mg PO DAILY [facility] Last Admin: 11/20/18 08:06 Dose: 5 mg Bandage/Support Products ( Nasal Manager [employer]chand[employer]) 1 applic NASBOTH BID [facility] Stop: 11/24/18 09:01 Last Admin: 11/20/18 08:07 Dose: 1 applic Docusate Sodium (Colace) 100 mg PO BID PRN PRN Reason: Constipation Last Admin: 11/19/18 12:31 Dose: 100 mg Hydrochlorothiazide (Hydrochlorothiazide) 25 mg PO DAILY [facility] Last Admin: 11/20/18 08:06 Dose: 25 mg Lactated Ringer's (Ringers, Lactated) 1,000 mls @ 100 mls/hr IV ASDIRECTED [facility] Last Admin: 11/20/18 04:53 Dose: 100 mls/hr Vancomycin HCl 1.75 gm/ Sodium (Chloride) 250 mls @ 166.667 mls/hr IV Q12H [facility] Last Admin: 11/20/18 08:12 Dose: 166.667 mls/hr Levetiracetam (Keppra) 500 mg PO BID [facility] Last Admin: 11/20/18 08:06 Dose: 500 mg Lisinopril (Prinivil) 40 mg PO DAILY [facility] Last Admin: 11/20/18 08:07 Dose: 40 mg Morphine Sulfate (Morphine) 2 mg IVPUSH Q1H PRN PRN Reason: Pain (severe 7-10) Multivitamins/Minerals (Thera M Plus) 1 tab PO DAILY [facility] Last Admin: 11/20/18 08:06 Dose: 1 tab Naproxen (Naproxen Sodium) 220 mg PO Q12H [facility] Last Admin: 11/20/18 08:05 Dose: 220 mg Nitroglycerin (Nitrostat) 0.4 mg SL ASDIRECTED PRN PRN Reason: Chest Pain Oxycodone HCl (Oxycodone) 5 mg PO Q4H PRN PRN Reason: Pain (moderate 4-6) Last Admin: 11/18/18 13:29 Dose: 5 mg Oxycodone HCl (Oxycodone) 10 mg PO Q4H PRN PRN Reason: Pain (severe 7-10) Last Admin: 11/20/18 02:44 Dose: 10 mg Pantoprazole Sodium (Protonix) 40 mg PO DAILY@0730 [facility] Last Admin: 11/20/18 08:06 Dose: 40 mg Loratadine/Pseudoephedrine ( Claritin-D 24 Hour Tablet)Pom 0 each PO DAILY [facility] Last Admin: 11/20/18 08:07 Dose: Not Given Polyethylene Glycol (Miralax) 17 gm PO BID PRN PRN Reason: Constipation Senna/Docusate Sodium (Senna Plus) 2 tab PO BEDTIME [facility] Last Admin: 11/19/18 20:54 Dose: 2 tab Sodium Chloride ([place] Nasal [place]) 0 ml NASBOTH DAILY [facility] Last Admin: 11/20/18 08:07 Dose: 1 spray Tamsulosin HCl (Flomax) 0.4 mg PO BEDTIME [facility] Last Admin: 11/19/18 20:54 Dose: 0.4 mg Warfarin Sodium (Coumadin) 5 mg PO DAILY@1300 [facility] Last Admin: 11/19/18 12:31 Dose: 5 mg Discontinued Medications Bupivacaine HCl (Marcaine 0.5%) Confirm Administered Dose 50 ml .ROUTE .STK-MED ONE Stop: 11/17/18 14:05 Last Admin: 11/17/18 17:16 Dose: 50 ml Bupivacaine HCl (Marcaine 0.5%) Confirm Administered Dose 50 ml .ROUTE .STK-MED ONE Stop: 11/17/18 16:27 Dexamethasone (Dexamethasone) Confirm Administered Dose 4 mg .ROUTE .STK-MED ONE Stop: 11/17/18 17:01 Fentanyl (Sublimaze) Confirm Administered Dose 100 mcg .ROUTE .STK-MED ONE Stop: 11/17/18 15:42 Fentanyl (Sublimaze) Confirm Administered Dose 250 mcg .ROUTE .STK-MED ONE Stop: 11/17/18 16:58 Gentamicin Sulfate (Gentamicin) Confirm Administered Dose 240 mg .ROUTE .STK- MED ONE Stop: 11/17/18 14:05 Glycopyrrolate (Robinul) Confirm Administered Dose 1 mg .ROUTE .STK-MED ONE Stop: 11/17/18 17:01 Cefazolin Sodium/Dextrose 2 gm (/ Premix) 50 mls @ 100 mls/hr IV Q8H [facility] Stop: 11/17/18 20:29 Last Admin: 11/17/18 19:47 Dose: 100 mls/hr Lactated Ringer's (Ringers, Lactated) Confirm Administered Dose 1,000 mls @ as directed .ROUTE .STK-MED ONE Stop: 11/17/18 17:55 Vancomycin HCl 1 gm/ Sodium (Chloride) 250 mls @ 150 mls/hr IV Q12H [facility] Last Admin: 11/18/18 07:56 Dose: Not Given Vancomycin HCl 2 gm/ Sodium (Chloride) 500 mls @ 250 mls/hr IV ONETIME ONE Stop: 11/17/18 21:59 Last Admin: 11/17/18 20:30 Dose: 250 mls/hr Vancomycin HCl 1.75 gm/ Sodium (Chloride) 250 mls @ 166.667 mls/hr IV Q18H [facility] Stop: 11/19/18 10:00 Last Admin: 11/19/18 07:35 Dose: 166.667 mls/hr Lidocaine HCl (Xylocaine-Mpf 1%) 5 ml INJECT ONETIME ONE Stop: 11/19/18 15:52 Last Admin: 11/19/18 16:13 Dose: 5 ml Midazolam HCl (Versed 1 Mg/Ml) Confirm Administered Dose 2 mg .ROUTE .STK-MED ONE Stop: 11/17/18 15:42 Morphine Sulfate (Morphine) 2 mg IM ONETIME ONE Stop: 11/17/18 18:10 Last Admin: 11/17/18 18:18 Dose: 2 mg Neostigmine Methylsulfate (Neostigmine) Confirm Administered Dose 5 mg .ROUTE .STK-MED ONE Stop: 11/17/18 17:01 Vanco Dosing Per (Pharmacy) 0 each IV DAILY [facility] Last Admin: 11/18/18 10:12 Dose: Not Given Ondansetron HCl (Zofran) Confirm Administered Dose 4 mg .ROUTE .STK-MED ONE Stop: 11/17/18 17:01 Oxycodone/Acetaminophen (Percocet 325-5 Mg) 1 tab PO Q6H PRN PRN Reason: Pain Oxycodone/Acetaminophen (Percocet 325-5 Mg) 1 - 2 tab PO Q6H PRN PRN Reason: Pain (severe 7-10) Last Admin: 11/18/18 08:07 Dose: 1 tab Povidone Iodine (Betadine 10% Soln) Confirm Administered Dose 1 ml .ROUTE .STK- MED ONE Stop: 11/17/18 14:10 Last Admin: 11/17/18 17:17 Dose: 118 ml Propofol (Diprivan 20 Ml) Confirm Administered Dose 200 mg .ROUTE .STK-MED ONE Stop: 11/17/18 15:42 Rocuronium [place] (Zemuron) Confirm Administered Dose 50 mg .ROUTE .STK-MED ONE Stop: 11/17/18 17:01 Succinylcholine Chloride (Quelicin) Confirm Administered Dose 200 mg .ROUTE .STK -MED ONE Stop: 11/17/18 17:01 Vancomycin HCl (Vancomycin) Confirm Administered Dose 2 gm .ROUTE .STK-MED ONE Stop: 11/17/18 19:51 Last Admin: 11/17/18 20:37 Dose: Not Given - Exam General: Alert, Oriented HEENT: Pupils Equal Neck: Supple Lungs: Clear to Auscultation, Normal Respiratory Effort Cardiovascular: Regular Rate, Regular Rhythm GI/Abdominal Exam: Normal Bowel Sounds, Soft, Non-Tender, No Organomegaly, No Distention, No Abnormal Bruit, No Mass, Pelvis Stable Skin: Warm, Dry Neurological: No New Focal Deficit Psy/Mental Status: Alert, Normal Affect, Normal Mood Physical Findings Comment:: negative pressure dressing in place, swelling in leg improved - Problem List & Annotations (1) Status post total hip replacement, left SNOMED Code(s): 410328502556, 862766878083 Code(s): Z96.642 - PRESENCE OF LEFT ARTIFICIAL HIP JOINT Status: Acute Current Visit: No (2) Status post incision and drainage SNOMED Code(s): 575011919, 643615300 Code(s): Z98.890 - OTHER SPECIFIED POSTPROCEDURAL STATES Status: Acute Current Visit: Yes Annotation/Comment:: Left hip (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 SNOMED Code(s): 652800888 Code(s): T84.59XA - INFECT/INFLM REACTION DUE TO OTH INTERNAL JOINT PROSTH, INIT; Z96.649 - PRESENCE OF UNSPECIFIED ARTIFICIAL HIP JOINT Status: Acute Current Visit: Yes (4) Anemia following surgery SNOMED Code(s): 288627601, 662536028 Code(s): D64.9 - ANEMIA, UNSPECIFIED Status: Acute Current Visit: No (5) Atrial fibrillation SNOMED Code(s): 24025656 Code(s): I48.91 - UNSPECIFIED ATRIAL FIBRILLATION Status: Chronic Current Visit: No Qualifiers: Atrial fibrillation type: chronic Qualified Code(s): I48.2 - Chronic atrial fibrillation - Problem List Review Problem List Initiated/Reviewed/Updated: Yes - My Orders Last 24 Hours: Active Orders 24 hr Category Date Time Status Central Line Assessment [RC] QSHIFT Care 11/19/18 17:28 Active CXR [Chest 1V Frontal] [CR] Stat Exams 11/20/18 11:02 Taken Acetaminophen [Tylenol] Med 12/01/18 18:30 Active 650 mg PO Q6H PRN Docusate Sodium [Colace] Med 11/19/18 11:29 Active 100 mg PO BID PRN Polyethylene Glycol 3350 [MiraLAX] Med 11/19/18 17:29 Active 17 gm PO BID PRN Vancomycin 1.75 gm Med 11/19/18 20:00 Active Sodium Chloride 0.9% [Normal Saline] 250 ml IV Q12H Central Line PICC Insertion [Central Venous Line Ot 11/20/18 08:00 Ordered Insertion] [OM.PC] Routine Medication Orders Acetaminophen (Tylenol) 650 mg PO Q6H [facility] Stop: 12/01/18 12:31 Last Admin: 11/20/18 08:05 Dose: 650 mg Admin: 11/19/18 23:47 Dose: 650 mg Admin: 11/19/18 19:32 Dose: 650 mg Admin: 11/19/18 11:33 Dose: 650 mg Admin: 11/19/18 05:45 Dose: 650 mg Admin: 11/19/18 01:50 Dose: 650 mg Admin: 11/18/18 18:13 Dose: 650 mg Admin: 11/18/18 12:51 Dose: 650 mg Admin: 11/18/18 06:10 Dose: 650 mg Admin: 11/17/18 23:52 Dose: 650 mg Admin: 11/17/18 19:48 Dose: 650 mg Acetaminophen (Tylenol) 650 mg PO Q6H PRN PRN Reason: PAIN Amlodipine Besylate (Norvasc) 5 mg PO DAILY [facility] Last Admin: 11/20/18 08:06 Dose: 5 mg Admin: 11/19/18 08:44 Dose: 5 mg Admin: 11/18/18 09:59 Dose: 5 mg Bandage/Support Products ( Nasal Manager [employer]chandising) 1 applic NASBOTH BID [facility] Stop: 11/24/18 09:01 Last Admin: 11/20/18 08:07 Dose: 1 applic Admin: 11/19/18 20:53 Dose: 1 applic Admin: 11/19/18 08:42 Dose: 1 applic Admin: 11/18/18 20:49 Dose: 1 applic Admin: 11/18/18 09:59 Dose: 1 applic Admin: 11/17/18 20:37 Dose: 1 applic Docusate Sodium (Colace) 100 mg PO BID PRN PRN Reason: Constipation Last Admin: 11/19/18 12:31 Dose: 100 mg Hydrochlorothiazide (Hydrochlorothiazide) 25 mg PO DAILY [facility] Last Admin: 11/20/18 08:06 Dose: 25 mg Admin: 11/19/18 08:45 Dose: 25 mg Admin: 11/18/18 10:00 Dose: 25 mg Lactated Ringer's (Ringers, Lactated) 1,000 mls @ 100 mls/hr IV ASDIRECTED [facility] Last Admin: 11/20/18 04:53 Dose: 100 mls/hr Infusion: 11/19/18 22:29 Dose: 100 mls/hr Admin: 11/19/18 12:29 Dose: 100 mls/hr Infusion: 11/19/18 11:32 Dose: 100 mls/hr Admin: 11/19/18 01:32 Dose: 100 mls/hr Infusion: 11/19/18 01:32 Dose: 100 mls/hr Admin: 11/18/18 15:34 Dose: 100 mls/hr Infusion: 11/18/18 14:09 Dose: 100 mls/hr Admin: 11/18/18 04:09 Dose: 100 mls/hr Infusion: 11/18/18 00:29 Dose: 100 mls/hr Admin: 11/17/18 14:29 Dose: 100 mls/hr Vancomycin HCl 1.75 gm/ Sodium (Chloride) 250 mls @ 166.667 mls/hr IV Q12H [facility] Last Admin: 11/20/18 08:12 Dose: 166.667 mls/hr Admin: 11/19/18 19:33 Dose: 166.667 mls/hr Levetiracetam (Keppra) 500 mg PO BID [facility] Last Admin: 11/20/18 08:06 Dose: 500 mg Admin: 11/19/18 20:54 Dose: 500 mg Admin: 11/19/18 08:43 Dose: 500 mg Admin: 11/18/18 20:50 Dose: 500 mg Admin: 11/18/18 10:02 Dose: 500 mg Admin: 11/17/18 20:36 Dose: 500 mg Lisinopril (Prinivil) 40 mg PO DAILY [facility] Last Admin: 11/20/18 08:07 Dose: 40 mg Admin: 11/19/18 08:43 Dose: 40 mg Admin: 11/18/18 10:00 Dose: 40 mg Morphine Sulfate (Morphine) 2 mg IVPUSH Q1H PRN PRN Reason: Pain (severe 7-10) Multivitamins/Minerals (Thera M Plus) 1 tab PO DAILY [facility] Last Admin: 11/20/18 08:06 Dose: 1 tab Admin: 11/19/18 08:44 Dose: 1 tab Admin: 11/18/18 10:00 Dose: 1 tab Naproxen (Naproxen Sodium) 220 mg PO Q12H [facility] Last Admin: 11/20/18 08:05 Dose: 220 mg Admin: 11/19/18 19:33 Dose: 220 mg Admin: 11/19/18 07:35 Dose: 220 mg Admin: 11/18/18 20:48 Dose: 220 mg Admin: 11/18/18 10:00 Dose: 220 mg Admin: 11/18/18 08:08 Dose: 220 mg Admin: 11/17/18 19:48 Dose: 220 mg Nitroglycerin (Nitrostat) 0.4 mg SL ASDIRECTED PRN PRN Reason: Chest Pain Oxycodone HCl (Oxycodone) 5 mg PO Q4H PRN PRN Reason: Pain (moderate 4-6) Last Admin: 11/18/18 13:29 Dose: 5 mg Oxycodone HCl (Oxycodone) 10 mg PO Q4H PRN PRN Reason: Pain (severe 7-10) Last Admin: 11/20/18 02:44 Dose: 10 mg Admin: 11/19/18 17:41 Dose: 10 mg Admin: 11/19/18 05:45 Dose: 10 mg Admin: 11/18/18 21:38 Dose: 10 mg Admin: 11/18/18 17:14 Dose: 10 mg Pantoprazole Sodium (Protonix) 40 mg PO DAILY@0730 [facility] Last Admin: 11/20/18 08:06 Dose: 40 mg Admin: 11/19/18 07:35 Dose: 40 mg Admin: 11/18/18 10:00 Dose: 40 mg Loratadine/Pseudoephedrine ( Claritin-D 24 Hour Tablet)Pom 0 each PO DAILY [facility] Last Admin: 11/20/18 08:07 Dose: Admin: 11/19/18 08:44 Dose: Admin: 11/18/18 10:04 Dose: Admin: 11/18/18 10:04 Dose: Not Given Polyethylene Glycol (Miralax) 17 gm PO BID PRN PRN Reason: Constipation Senna/Docusate Sodium (Senna Plus) 2 tab PO BEDTIME [facility] Last Admin: 11/19/18 20:54 Dose: 2 tab Admin: 11/18/18 20:49 Dose: 2 tab Admin: 11/17/18 20:21 Dose: 2 tab Sodium Chloride ([place] Nasal [place]) 0 ml NASBOTH DAILY [facility] Last Admin: 11/20/18 08:07 Dose: 1 spray Admin: 11/19/18 08:45 Dose: 1 spray Admin: 11/18/18 09:59 Dose: 1 spray Admin: 11/18/18 08:00 Dose: Not Given Tamsulosin HCl (Flomax) 0.4 mg PO BEDTIME [facility] Last Admin: 11/19/18 20:54 Dose: 0.4 mg Admin: 11/18/18 20:49 Dose: 0.4 mg Admin: 11/17/18 20:21 Dose: 0.4 mg Warfarin Sodium (Coumadin) 5 mg PO DAILY@1300 [facility] Last Admin: 11/19/18 12:31 Dose: 5 mg Admin: 11/18/18 12:51 Dose: 5 mg - Assessment Assessment (Free Text/Narrative):: PICC line placed for residential antibiotics. Vanco level adjusted. Start arrangements for discharge to SNF, await final culture results. - Plan Plan (Free Text/Narrative):: Vanco level adjusted, PICC line in place, anticipate discharge on Vanco unless final cultures indicate otherwise. Check PT/INR.
[2018-11-20] MEDS: Warfarin 5 MG Tab PO SCH (13:45)
[2018-11-20] MEDS ORDERED: Warfarin 2.5 MG Tab PO ONE (14:00)
[2018-11-20] MEDS: Tamsulosin 0.4 MG Cap.ER PO SCH (20:40)
[2018-11-21] MEDS: oxyCODONE 5 MG Tab PO PRN ×3 (05:29→23:36)
[2018-11-21] MEDS: Acetaminophen 325 MG Tab PO SCH ×4 (05:30→23:36)
[2018-11-21] MEDS: levETIRAcetam 250 MG Tab PO SCH ×2 (08:04→21:31)
[2018-11-21] MEDS: Sodium Chloride 0.65% Nasal Spray 45 ML Bottle NASBOTH SCH (08:05)
[2018-11-21] MEDS: Hydrochlorothiazide 25 MG Tab PO SCH (08:05)
[2018-11-21] MEDS: Multivitamins with Iron/Calcium/Folic Acid/Minerals Tab PO SCH (08:05)
[2018-11-21] MEDS: Lisinopril 20 MG Tab PO SCH (08:05)
[2018-11-21] MEDS: PSEUDOEPHEDRINE PO SCH (08:06)
[2018-11-21] MEDS: Nozin Nasal Sanitizer NASBOTH SCH ×2 (08:06→21:31)
[2018-11-21] MEDS: Pantoprazole 40 MG Tab.CR PO SCH (08:06)
[2018-11-21] MEDS: LORATADINE PO SCH (08:06)
[2018-11-21] MEDS: amLODIPine 5 MG Tab PO SCH (08:06)
--- NOTE | 2018-11-21 12:02 | PCM.SURGPN ---
- General Info Date of Service: 11/21/18 Date of Surgery/Procedure: 11/17/18 POD#: 4 Functional Status: Reports: Pain Controlled, Tolerating Diet, Ambulating, Urinating - Review of Systems General: Reports: No Symptoms HEENT: Reports: No Symptoms Pulmonary: Reports: No Symptoms Cardiovascular: Reports: No Symptoms Gastrointestinal: Reports: Constipation Genitourinary: Reports: No Symptoms Musculoskeletal: Reports: Leg Pain Skin: Reports: No Symptoms Neurological: Reports: No Symptoms Psychiatric: Reports: No Symptoms - Patient Data Vitals - Most Recent: Last Vital Signs Temp 36.5 C 11/21/18 10:24 Pulse 73 11/21/18 10:24 Resp 16 11/21/18 10:24 BP 115/50 L 11/21/18 10:24 Pulse Ox 95 11/21/18 10:24 Weight - Most Recent: 122.47 kg I&O - Last 24 Hours: Intake & Output 11/20/18 11/21/18 11/21/18 22:59 06:59 14:59 Intake Total 460 550 Output Total 1050 650 350 Balance -590 -100 -350 Lab Results Last 24 Hrs: Laboratory Results - last 24 hr 11/20/18 Range/Units 12:52 PT 15.7 H (9.5-12.0) sec INR 1.46 H (0.80-1.20) Myles Results Last 24 Hrs: Microbiology 11/17/18 17:49 Gram Stain - Final Hip, Left Wound Culture - Final Staphylococcus Epidermidis Anaerobic Culture - Final NO GROWTH AFTER 3 DAYS Med Orders - Current: Current Medications Acetaminophen (Tylenol) 650 mg PO Q6H [facility] Stop: 12/01/18 12:31 Last Admin: 11/21/18 05:30 Dose: 650 mg Acetaminophen (Tylenol) 650 mg PO Q6H PRN PRN Reason: PAIN Amlodipine Besylate (Norvasc) 5 mg PO DAILY [facility] Last Admin: 11/21/18 08:06 Dose: 5 mg Bandage/Support Products ( Nasal Conference Manager) 1 applic NASBOTH BID [facility] Stop: 11/24/18 09:01 Last Admin: 11/21/18 08:06 Dose: 1 applic Docusate Sodium (Colace) 100 mg PO BID PRN PRN Reason: Constipation Last Admin: 11/19/18 12:31 Dose: 100 mg Hydrochlorothiazide (Hydrochlorothiazide) 25 mg PO DAILY [facility] Last Admin: 11/21/18 08:05 Dose: 25 mg Vancomycin HCl 1.75 gm/ Sodium (Chloride) 250 mls @ 166.667 mls/hr IV Q12H [facility] Last Admin: 11/21/18 08:05 Dose: 166.667 mls/hr Levetiracetam (Keppra) 500 mg PO BID [facility] Last Admin: 11/21/18 08:04 Dose: 500 mg Lisinopril (Prinivil) 40 mg PO DAILY [facility] Last Admin: 11/21/18 08:05 Dose: 40 mg Morphine Sulfate (Morphine) 2 mg IVPUSH Q1H PRN PRN Reason: Pain (severe 7-10) Multivitamins/Minerals (Thera M Plus) 1 tab PO DAILY [facility] Last Admin: 11/21/18 08:05 Dose: 1 tab Naproxen (Naproxen Sodium) 220 mg PO Q12H [facility] Last Admin: 11/21/18 08:07 Dose: 220 mg Nitroglycerin (Nitrostat) 0.4 mg SL ASDIRECTED PRN PRN Reason: Chest Pain Oxycodone HCl (Oxycodone) 5 mg PO Q4H PRN PRN Reason: Pain (moderate 4-6) Last Admin: 11/18/18 13:29 Dose: 5 mg Oxycodone HCl (Oxycodone) 10 mg PO Q4H PRN PRN Reason: Pain (severe 7-10) Last Admin: 11/21/18 11:01 Dose: 10 mg Pantoprazole Sodium (Protonix) 40 mg PO DAILY@0730 [facility] Last Admin: 11/21/18 08:06 Dose: 40 mg Loratadine/Pseudoephedrine ( Claritin-D 24 Hour Tablet)Pom 0 each PO DAILY [facility] Last Admin: 11/21/18 08:06 Dose: Not Given Polyethylene Glycol (Miralax) 17 gm PO BID PRN PRN Reason: Constipation Senna/Docusate Sodium (Senna Plus) 2 tab PO BEDTIME [facility] Last Admin: 11/20/18 20:40 Dose: 2 tab Sodium Chloride ([place] Nasal [place]) 0 ml NASBOTH DAILY [facility] Last Admin: 11/21/18 08:05 Dose: 1 spray Tamsulosin HCl (Flomax) 0.4 mg PO BEDTIME [facility] Last Admin: 11/20/18 20:40 Dose: 0.4 mg Warfarin Sodium (Coumadin) 5 mg PO DAILY@1300 [facility] Last Admin: 11/20/18 13:45 Dose: 5 mg Discontinued Medications Bupivacaine HCl (Marcaine 0.5%) Confirm Administered Dose 50 ml .ROUTE .STK-MED ONE Stop: 11/17/18 14:05 Last Admin: 11/17/18 17:16 Dose: 50 ml Bupivacaine HCl (Marcaine 0.5%) Confirm Administered Dose 50 ml .ROUTE .STK-MED ONE Stop: 11/17/18 16:27 Dexamethasone (Dexamethasone) Confirm Administered Dose 4 mg .ROUTE .STK-MED ONE Stop: 11/17/18 17:01 Fentanyl (Sublimaze) Confirm Administered Dose 100 mcg .ROUTE .STK-MED ONE Stop: 11/17/18 15:42 Fentanyl (Sublimaze) Confirm Administered Dose 250 mcg .ROUTE .STK-MED ONE Stop: 11/17/18 16:58 Gentamicin Sulfate (Gentamicin) Confirm Administered Dose 240 mg .ROUTE .STK- MED ONE Stop: 11/17/18 14:05 Glycopyrrolate (Robinul) Confirm Administered Dose 1 mg .ROUTE .STK-MED ONE Stop: 11/17/18 17:01 Cefazolin Sodium/Dextrose 2 gm (/ Premix) 50 mls @ 100 mls/hr IV Q8H [facility] Stop: 11/17/18 20:29 Last Admin: 11/17/18 19:47 Dose: 100 mls/hr Lactated Ringer's (Ringers, Lactated) 1,000 mls @ 100 mls/hr IV ASDIRECTED [facility] Last Admin: 11/20/18 04:53 Dose: 100 mls/hr Lactated Ringer's (Ringers, Lactated) Confirm Administered Dose 1,000 mls @ as directed .ROUTE .STK-MED ONE Stop: 11/17/18 17:55 Vancomycin HCl 1 gm/ Sodium (Chloride) 250 mls @ 150 mls/hr IV Q12H [facility] Last Admin: 11/18/18 07:56 Dose: Not Given Vancomycin HCl 2 gm/ Sodium (Chloride) 500 mls @ 250 mls/hr IV ONETIME ONE Stop: 11/17/18 21:59 Last Admin: 11/17/18 20:30 Dose: 250 mls/hr Vancomycin HCl 1.75 gm/ Sodium (Chloride) 250 mls @ 166.667 mls/hr IV Q18H [facility] Stop: 11/19/18 10:00 Last Admin: 11/19/18 07:35 Dose: 166.667 mls/hr Lidocaine HCl (Xylocaine-Mpf 1%) 5 ml INJECT ONETIME ONE Stop: 11/19/18 15:52 Last Admin: 11/19/18 16:13 Dose: 5 ml Midazolam HCl (Versed 1 Mg/Ml) Confirm Administered Dose 2 mg .ROUTE .STK-MED ONE Stop: 11/17/18 15:42 Morphine Sulfate (Morphine) 2 mg IM ONETIME ONE Stop: 11/17/18 18:10 Last Admin: 11/17/18 18:18 Dose: 2 mg Neostigmine Methylsulfate (Neostigmine) Confirm Administered Dose 5 mg .ROUTE .STK-MED ONE Stop: 11/17/18 17:01 Vanco Dosing Per (Pharmacy) 0 each IV DAILY [facility] Last Admin: 11/18/18 10:12 Dose: Not Given Ondansetron HCl (Zofran) Confirm Administered Dose 4 mg .ROUTE .STK-MED ONE Stop: 11/17/18 17:01 Oxycodone/Acetaminophen (Percocet 325-5 Mg) 1 tab PO Q6H PRN PRN Reason: Pain Oxycodone/Acetaminophen (Percocet 325-5 Mg) 1 - 2 tab PO Q6H PRN PRN Reason: Pain (severe 7-10) Last Admin: 11/18/18 08:07 Dose: 1 tab Povidone Iodine (Betadine 10% Soln) Confirm Administered Dose 1 ml .ROUTE .STK- MED ONE Stop: 11/17/18 14:10 Last Admin: 11/17/18 17:17 Dose: 118 ml Propofol (Diprivan 20 Ml) Confirm Administered Dose 200 mg .ROUTE .STK-MED ONE Stop: 11/17/18 15:42 Rocuronium [place] (Zemuron) Confirm Administered Dose 50 mg .ROUTE .STK-MED ONE Stop: 11/17/18 17:01 Succinylcholine Chloride (Quelicin) Confirm Administered Dose 200 mg .ROUTE .STK -MED ONE Stop: 11/17/18 17:01 Vancomycin HCl (Vancomycin) Confirm Administered Dose 2 gm .ROUTE .STK-MED ONE Stop: 11/17/18 19:51 Last Admin: 11/17/18 20:37 Dose: Not Given Warfarin Sodium (Coumadin) 2.5 mg PO ONETIME ONE Stop: 11/20/18 14:01 Last Admin: 11/20/18 13:48 Dose: 2.5 mg - Exam Wound/Incisions: Other (minimal draiange from drain site, incision looks good) General: Alert, Oriented HEENT: Pupils Equal Neck: Supple Lungs: Clear to Auscultation, Normal Respiratory Effort Cardiovascular: Regular Rate, Regular Rhythm GI/Abdominal Exam: Normal Bowel Sounds, Soft, Non-Tender, No Organomegaly, No Distention, No Abnormal Bruit, No Mass, Pelvis Stable Skin: Warm, Dry Neurological: No New Focal Deficit Psy/Mental Status: Alert, Normal Affect, Normal Mood - Problem List & Annotations (1) Status post total hip replacement, left SNOMED Code(s): 395326556604, 523732027449 Code(s): Z96.642 - PRESENCE OF LEFT ARTIFICIAL HIP JOINT Status: Acute Current Visit: No (2) Status post incision and drainage SNOMED Code(s): 762583081, 291954216 Code(s): Z98.890 - OTHER SPECIFIED POSTPROCEDURAL STATES Status: Acute Current Visit: Yes Annotation/Comment:: Left hip (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 SNOMED Code(s): 051873531 Code(s): T84.59XA - INFECT/INFLM REACTION DUE TO OTH INTERNAL JOINT PROSTH, INIT; Z96.649 - PRESENCE OF UNSPECIFIED ARTIFICIAL HIP JOINT Status: Acute Current Visit: Yes (4) Anemia following surgery SNOMED Code(s): 447072481, 872467610 Code(s): D64.9 - ANEMIA, UNSPECIFIED Status: Acute Current Visit: No (5) Atrial fibrillation SNOMED Code(s): 54601542 Code(s): I48.91 - UNSPECIFIED ATRIAL FIBRILLATION Status: Chronic Current Visit: No Qualifiers: Atrial fibrillation type: chronic Qualified Code(s): I48.2 - Chronic atrial fibrillation - Problem List Review Problem List Initiated/Reviewed/Updated: Yes - My Orders Last 24 Hours: Active Orders 24 hr Category Date Time Status Dressing Change [Wound Care] [RC] DAILY Care 11/21/18 11:54 Ordered CXR [Chest 1V Frontal] [CR] Stat Exams 11/20/18 11:02 Taken BASIC METABOLIC PANEL,BMP [CHEM] AM Lab 11/22/18 05:11 Ordered CBC WITH AUTO DIFF [HEME] AM Lab 11/22/18 05:11 Ordered Acetaminophen [Tylenol] Med 12/01/18 18:30 Active 650 mg PO Q6H PRN Warfarin [Coumadin] Med 11/21/18 11:50 Once 2.5 mg PO ONETIME ONE Convert IV to [place]ine Lock [OM.PC] Routine Oth 11/20/18 14:39 Ordered Medication Orders Acetaminophen (Tylenol) 650 mg PO Q6H [facility] Stop: 12/01/18 12:31 Last Admin: 11/21/18 05:30 Dose: 650 mg Admin: 11/20/18 23:57 Dose: 650 mg Admin: 11/20/18 18:17 Dose: 650 mg Admin: 11/20/18 13:46 Dose: 650 mg Admin: 11/20/18 08:05 Dose: 650 mg Admin: 11/19/18 23:47 Dose: 650 mg Admin: 11/19/18 19:32 Dose: 650 mg Admin: 11/19/18 11:33 Dose: 650 mg Admin: 11/19/18 05:45 Dose: 650 mg Admin: 11/19/18 01:50 Dose: 650 mg Admin: 11/18/18 18:13 Dose: 650 mg Admin: 11/18/18 12:51 Dose: 650 mg Admin: 11/18/18 06:10 Dose: 650 mg Admin: 11/17/18 23:52 Dose: 650 mg Admin: 11/17/18 19:48 Dose: 650 mg Acetaminophen (Tylenol) 650 mg PO Q6H PRN PRN Reason: PAIN Amlodipine Besylate (Norvasc) 5 mg PO DAILY [facility] Last Admin: 11/21/18 08:06 Dose: 5 mg Admin: 11/20/18 08:06 Dose: 5 mg Admin: 11/19/18 08:44 Dose: 5 mg Admin: 11/18/18 09:59 Dose: 5 mg Bandage/Support Products ( Nasal Conference Manager) 1 applic NASBOTH BID [facility] Stop: 11/24/18 09:01 Last Admin: 11/21/18 08:06 Dose: 1 applic Admin: 11/20/18 20:40 Dose: 1 applic Admin: 11/20/18 08:07 Dose: 1 applic Admin: 11/19/18 20:53 Dose: 1 applic Admin: 11/19/18 08:42 Dose: 1 applic Admin: 11/18/18 20:49 Dose: 1 applic Admin: 11/18/18 09:59 Dose: 1 applic Admin: 11/17/18 20:37 Dose: 1 applic Docusate Sodium (Colace) 100 mg PO BID PRN PRN Reason: Constipation Last Admin: 11/19/18 12:31 Dose: 100 mg Hydrochlorothiazide (Hydrochlorothiazide) 25 mg PO DAILY [facility] Last Admin: 11/21/18 08:05 Dose: 25 mg Admin: 11/20/18 08:06 Dose: 25 mg Admin: 11/19/18 08:45 Dose: 25 mg Admin: 11/18/18 10:00 Dose: 25 mg Vancomycin HCl 1.75 gm/ Sodium (Chloride) 250 mls @ 166.667 mls/hr IV Q12H [facility] Last Admin: 11/21/18 08:05 Dose: 166.667 mls/hr Admin: 11/20/18 19:43 Dose: 166.667 mls/hr Admin: 11/20/18 08:12 Dose: 166.667 mls/hr Admin: 11/19/18 19:33 Dose: 166.667 mls/hr Levetiracetam (Keppra) 500 mg PO BID [facility] Last Admin: 11/21/18 08:04 Dose: 500 mg Admin: 11/20/18 20:40 Dose: 500 mg Admin: 11/20/18 08:06 Dose: 500 mg Admin: 11/19/18 20:54 Dose: 500 mg Admin: 11/19/18 08:43 Dose: 500 mg Admin: 11/18/18 20:50 Dose: 500 mg Admin: 11/18/18 10:02 Dose: 500 mg Admin: 11/17/18 20:36 Dose: 500 mg Lisinopril (Prinivil) 40 mg PO DAILY [facility] Last Admin: 11/21/18 08:05 Dose: 40 mg Admin: 11/20/18 08:07 Dose: 40 mg Admin: 11/19/18 08:43 Dose: 40 mg Admin: 11/18/18 10:00 Dose: 40 mg Morphine Sulfate (Morphine) 2 mg IVPUSH Q1H PRN PRN Reason: Pain (severe 7-10) Multivitamins/Minerals (Thera M Plus) 1 tab PO DAILY [facility] Last Admin: 11/21/18 08:05 Dose: 1 tab Admin: 11/20/18 08:06 Dose: 1 tab Admin: 11/19/18 08:44 Dose: 1 tab Admin: 11/18/18 10:00 Dose: 1 tab Naproxen (Naproxen Sodium) 220 mg PO Q12H [facility] Last Admin: 11/21/18 08:07 Dose: 220 mg Admin: 11/20/18 19:40 Dose: 220 mg Admin: 11/20/18 08:05 Dose: 220 mg Admin: 11/19/18 19:33 Dose: 220 mg Admin: 11/19/18 07:35 Dose: 220 mg Admin: 11/18/18 20:48 Dose: 220 mg Admin: 11/18/18 10:00 Dose: 220 mg Admin: 11/18/18 08:08 Dose: 220 mg Admin: 11/17/18 19:48 Dose: 220 mg Nitroglycerin (Nitrostat) 0.4 mg SL ASDIRECTED PRN PRN Reason: Chest Pain Oxycodone HCl (Oxycodone) 5 mg PO Q4H PRN PRN Reason: Pain (moderate 4-6) Last Admin: 11/18/18 13:29 Dose: 5 mg Oxycodone HCl (Oxycodone) 10 mg PO Q4H PRN PRN Reason: Pain (severe 7-10) Last Admin: 11/21/18 11:01 Dose: 10 mg Admin: 11/21/18 05:29 Dose: 10 mg Admin: 11/20/18 13:53 Dose: 10 mg Admin: 11/20/18 02:44 Dose: 10 mg Admin: 11/19/18 17:41 Dose: 10 mg Admin: 11/19/18 05:45 Dose: 10 mg Admin: 11/18/18 21:38 Dose: 10 mg Admin: 11/18/18 17:14 Dose: 10 mg Pantoprazole Sodium (Protonix) 40 mg PO DAILY@0730 [facility] Last Admin: 11/21/18 08:06 Dose: 40 mg Admin: 11/20/18 08:06 Dose: 40 mg Admin: 11/19/18 07:35 Dose: 40 mg Admin: 11/18/18 10:00 Dose: 40 mg Loratadine/Pseudoephedrine ( Claritin-D 24 Hour Tablet)Pom 0 each PO DAILY [facility] Last Admin: 11/21/18 08:06 Dose: Admin: 11/20/18 08:07 Dose: Admin: 11/19/18 08:44 Dose: Admin: 11/18/18 10:04 Dose: Admin: 11/18/18 10:04 Dose: Not Given Polyethylene Glycol (Miralax) 17 gm PO BID PRN PRN Reason: Constipation Senna/Docusate Sodium (Senna Plus) 2 tab PO BEDTIME [facility] Last Admin: 11/20/18 20:40 Dose: 2 tab Admin: 11/19/18 20:54 Dose: 2 tab Admin: 11/18/18 20:49 Dose: 2 tab Admin: 11/17/18 20:21 Dose: 2 tab Sodium Chloride ([place] Nasal [place]) 0 ml NASBOTH DAILY [facility] Last Admin: 11/21/18 08:05 Dose: 1 spray Admin: 11/20/18 08:07 Dose: 1 spray Admin: 11/19/18 08:45 Dose: 1 spray Admin: 11/18/18 09:59 Dose: 1 spray Admin: 11/18/18 08:00 Dose: Not Given Tamsulosin HCl (Flomax) 0.4 mg PO BEDTIME [facility] Last Admin: 11/20/18 20:40 Dose: 0.4 mg Admin: 11/19/18 20:54 Dose: 0.4 mg Admin: 11/18/18 20:49 Dose: 0.4 mg Admin: 11/17/18 20:21 Dose: 0.4 mg Warfarin Sodium (Coumadin) 5 mg PO DAILY@1300 [facility] Last Admin: 11/20/18 13:45 Dose: 5 mg Admin: 11/19/18 12:31 Dose: 5 mg Admin: 11/18/18 12:51 Dose: 5 mg - Assessment Assessment (Free Text/Narrative):: Dressing changed and incision is looking good. Up in [place] today and doing well with PT. Still with constipation. Final culture showing Staph Epi sensitive to Vanco. INR 1.5, give additional 2.5mg Coumadin today. - Plan Plan (Free Text/Narrative):: Continue IV antibiotics and make arrangements for continuation on discharge. Work on constipation. Increased dose of Coumadin for A. Fib.
[2018-11-21] MEDS ORDERED: Warfarin 2.5 MG Tab PO ONE (13:00)
[2018-11-21] MEDS: Warfarin 5 MG Tab PO SCH (14:36)
[2018-11-21] MEDS ORDERED: Ondansetron 4 MG/2 ML SDV IVPUSH PRN (18:09)
[2018-11-21] MEDS: Tamsulosin 0.4 MG Cap.ER PO SCH (21:30)
[2018-11-22] MEDS: Acetaminophen 325 MG Tab PO SCH ×3 (06:19→18:36)
[2018-11-22] MEDS: Nozin Nasal Sanitizer NASBOTH SCH ×2 (08:28→21:32)
[2018-11-22] MEDS: levETIRAcetam 250 MG Tab PO SCH ×2 (08:28→21:33)
[2018-11-22] MEDS: Hydrochlorothiazide 25 MG Tab PO SCH (08:28)
[2018-11-22] MEDS: Pantoprazole 40 MG Tab.CR PO SCH (08:28)
[2018-11-22] MEDS: Lisinopril 20 MG Tab PO SCH (08:28)
[2018-11-22] MEDS: Multivitamins with Iron/Calcium/Folic Acid/Minerals Tab PO SCH (08:28)
[2018-11-22] MEDS: PSEUDOEPHEDRINE PO SCH (08:29)
[2018-11-22] MEDS: LORATADINE PO SCH (08:29)
[2018-11-22] MEDS: amLODIPine 5 MG Tab PO SCH (08:29)
[2018-11-22] MEDS: Sodium Chloride 0.65% Nasal Spray 45 ML Bottle NASBOTH SCH (08:31)
[2018-11-22] MEDS: oxyCODONE 5 MG Tab PO PRN ×2 (09:31→13:51)
[2018-11-22] MEDS: Warfarin 5 MG Tab PO SCH (13:52)
[2018-11-22] MEDS: Tamsulosin 0.4 MG Cap.ER PO SCH (21:33)
[2018-11-23] MEDS: Acetaminophen 325 MG Tab PO SCH ×3 (01:00→12:22)
[2018-11-23 07:44] VITALS: PULSE 71
[2018-11-23] MEDS: Pantoprazole 40 MG Tab.CR PO SCH (07:52)
[2018-11-23] MEDS: oxyCODONE 5 MG Tab PO PRN (08:27)
[2018-11-23] MEDS: Hydrochlorothiazide 25 MG Tab PO SCH (08:27)
[2018-11-23] MEDS: Nozin Nasal Sanitizer NASBOTH SCH (08:27)
[2018-11-23] MEDS: levETIRAcetam 250 MG Tab PO SCH (08:28)
[2018-11-23] MEDS: Multivitamins with Iron/Calcium/Folic Acid/Minerals Tab PO SCH (08:29)
[2018-11-23] MEDS: PSEUDOEPHEDRINE PO SCH (08:29)
[2018-11-23] MEDS: LORATADINE PO SCH (08:29)
[2018-11-23] MEDS: amLODIPine 5 MG Tab PO SCH (08:29)
[2018-11-23] MEDS: Lisinopril 20 MG Tab PO SCH (08:29)
[2018-11-23 08:30] VITALS: BP 124/76
[2018-11-23] MEDS: Sodium Chloride 0.65% Nasal Spray 45 ML Bottle NASBOTH SCH (08:30)
[2018-11-23] MEDS: Warfarin 5 MG Tab PO SCH (12:22)
--- NOTE | 2018-11-23 13:36 | CR ---
CHEST: Portable 11/20/2018 at 1129 CLINICAL HISTORY:PICC placement COMPARISON:None FINDINGS: There is a poor level of inspiration and lordotic positioning. Patient has a PICC line from the right upper extremity. The tip is not well seen but appears to be in the upper portion of the right atrium. Patient has a permanent cardiac pacer. Impression: Limited portable chest Right upper extremity PICC line appears to be in the upper portion right atrium
[2018-12-01] MEDS ORDERED: Acetaminophen 325 MG Tab PO PRN (18:30)
--- NOTE | 2018-12-21 15:21 | PCM.SURGPN ---
- General Info Date of Service: 11/22/18 Functional Status: Reports: Pain Controlled, Tolerating Diet, Ambulating, Urinating - Review of Systems General: Reports: No Symptoms HEENT: Reports: No Symptoms Pulmonary: Reports: No Symptoms Cardiovascular: Reports: No Symptoms Gastrointestinal: Reports: No Symptoms Genitourinary: Reports: No Symptoms Musculoskeletal: Reports: Leg Pain Skin: Reports: No Symptoms Neurological: Reports: No Symptoms Psychiatric: Reports: No Symptoms - Patient Data Vitals - Most Recent: Last Vital Signs Temp 36.0 C 11/23/18 06:00 Pulse 71 11/23/18 06:00 Resp 16 11/23/18 06:00 BP 124/76 11/23/18 08:29 Pulse Ox 98 11/23/18 06:00 Weight - Most Recent: 122.47 kg Med Orders - Current: Current Medications Discontinued Medications Acetaminophen (Tylenol) 650 mg PO Q6H [facility] Stop: 12/01/18 12:31 Last Admin: 11/23/18 12:22 Dose: 650 mg Acetaminophen (Tylenol) 650 mg PO Q6H PRN PRN Reason: PAIN Amlodipine Besylate (Norvasc) 5 mg PO DAILY [facility] Last Admin: 11/23/18 08:29 Dose: 5 mg Bandage/Support Products ( Nasal [place]) 1 applic NASBOTH BID [facility] Stop: 11/24/18 09:01 Last Admin: 11/23/18 08:27 Dose: 1 applic Bupivacaine HCl (Marcaine 0.5%) Confirm Administered Dose 50 ml .ROUTE .STK-MED ONE Stop: 11/17/18 14:05 Last Admin: 11/17/18 17:16 Dose: 50 ml Bupivacaine HCl (Marcaine 0.5%) Confirm Administered Dose 50 ml .ROUTE .STK-MED ONE Stop: 11/17/18 16:27 Dexamethasone (Dexamethasone) Confirm Administered Dose 4 mg .ROUTE .STK-MED ONE Stop: 11/17/18 17:01 Docusate Sodium (Colace) 100 mg PO BID PRN PRN Reason: Constipation Last Admin: 11/19/18 12:31 Dose: 100 mg Fentanyl (Sublimaze) Confirm Administered Dose 100 mcg .ROUTE .STK-MED ONE Stop: 11/17/18 15:42 Fentanyl (Sublimaze) Confirm Administered Dose 250 mcg .ROUTE .STK-MED ONE Stop: 11/17/18 16:58 Gentamicin Sulfate (Gentamicin) Confirm Administered Dose 240 mg .ROUTE .[facility] ONE Stop: 11/17/18 14:05 Glycopyrrolate (Robinul) Confirm Administered Dose 1 mg .ROUTE .[facility] ONE Stop: 11/17/18 17:01 Hydrochlorothiazide (Hydrochlorothiazide) 25 mg PO DAILY [facility] Last Admin: 11/23/18 08:27 Dose: 25 mg Cefazolin Sodium/Dextrose 2 gm (/ Premix) 50 mls @ 100 mls/hr IV Q8H [facility] Stop: 11/17/18 20:29 Last Admin: 11/17/18 19:47 Dose: 100 mls/hr Lactated Ringer's (Ringers, Lactated) 1,000 mls @ 100 mls/hr IV ASDIRECTED [facility] Last Admin: 11/20/18 04:53 Dose: 100 mls/hr Lactated Ringer's (Ringers, Lactated) Confirm Administered Dose 1,000 mls @ as directed .ROUTE .[facility] ONE Stop: 11/17/18 17:55 Vancomycin HCl 1 gm/ Sodium (Chloride) 250 mls @ 150 mls/hr IV Q12H [facility] Last Admin: 11/18/18 07:56 Dose: Not Given Vancomycin HCl 2 gm/ Sodium (Chloride) 500 mls @ 250 mls/hr IV ONETIME ONE Stop: 11/17/18 21:59 Last Admin: 11/17/18 20:30 Dose: 250 mls/hr Vancomycin HCl 1.75 gm/ Sodium (Chloride) 250 mls @ 166.667 mls/hr IV Q18H [facility] Stop: 11/19/18 10:00 Last Admin: 11/19/18 07:35 Dose: 166.667 mls/hr Vancomycin HCl 1.75 gm/ Sodium (Chloride) 250 mls @ 166.667 mls/hr IV Q12H [facility] Last Admin: 11/21/18 19:33 Dose: 166.667 mls/hr Vancomycin HCl 1.5 gm/ Sodium (Chloride) 250 mls @ 167 mls/hr IV Q12H [facility] Last Admin: 11/23/18 09:54 Dose: 167 mls/hr Levetiracetam (Keppra) 500 mg PO BID [facility] Last Admin: 11/23/18 08:28 Dose: 500 mg Lidocaine HCl (Xylocaine-Mpf 1%) 5 ml INJECT ONETIME ONE Stop: 11/19/18 15:52 Last Admin: 11/19/18 16:13 Dose: 5 ml Lisinopril (Prinivil) 40 mg PO DAILY [facility] Last Admin: 11/23/18 08:29 Dose: 40 mg Midazolam HCl (Versed 1 Mg/Ml) Confirm Administered Dose 2 mg .ROUTE .STK-MED ONE Stop: 11/17/18 15:42 Morphine Sulfate (Morphine) 2 mg IVPUSH Q1H PRN PRN Reason: Pain (severe 7-10) Morphine Sulfate (Morphine) 2 mg IM ONETIME ONE Stop: 11/17/18 18:10 Last Admin: 11/17/18 18:18 Dose: 2 mg Multivitamins/Minerals (Thera M Plus) 1 tab PO DAILY [facility] Last Admin: 11/23/18 08:29 Dose: 1 tab Naproxen (Naproxen Sodium) 220 mg PO Q12H [facility] Last Admin: 11/23/18 07:52 Dose: 220 mg Neostigmine Methylsulfate (Neostigmine) Confirm Administered Dose 5 mg .ROUTE .STK-MED ONE Stop: 11/17/18 17:01 Nitroglycerin (Nitrostat) 0.4 mg SL ASDIRECTED PRN PRN Reason: Chest Pain Vanco Dosing Per (Pharmacy) 0 each IV DAILY [facility] Last Admin: 11/18/18 10:12 Dose: Not Given Ondansetron HCl (Zofran) Confirm Administered Dose 4 mg .ROUTE .STK-MED ONE Stop: 11/17/18 17:01 Ondansetron HCl (Zofran) 4 mg IVPUSH Q6H PRN PRN Reason: Nausea/Vomiting Last Admin: 11/21/18 18:19 Dose: 4 mg Oxycodone HCl (Oxycodone) 5 mg PO Q4H PRN PRN Reason: Pain (moderate 4-6) Last Admin: 11/23/18 08:27 Dose: 5 mg Oxycodone HCl (Oxycodone) 10 mg PO Q4H PRN PRN Reason: Pain (severe 7-10) Last Admin: 11/22/18 13:51 Dose: 10 mg Oxycodone/Acetaminophen (Percocet 325-5 Mg) 1 tab PO Q6H PRN PRN Reason: Pain Oxycodone/Acetaminophen (Percocet 325-5 Mg) 1 - 2 tab PO Q6H PRN PRN Reason: Pain (severe 7-10) Last Admin: 11/18/18 08:07 Dose: 1 tab Pantoprazole Sodium (Protonix) 40 mg PO DAILY@0730 [facility] Last Admin: 11/23/18 07:52 Dose: 40 mg Loratadine/Pseudoephedrine ( Claritin-D 24 Hour Tablet)Pom 0 each PO DAILY [facility] Last Admin: 11/23/18 08:29 Dose: Not Given Polyethylene Glycol (Miralax) 17 gm PO BID PRN PRN Reason: Constipation Povidone Iodine (Betadine 10% Soln) Confirm Administered Dose 1 ml .ROUTE .STK- MED ONE Stop: 11/17/18 14:10 Last Admin: 11/17/18 17:17 Dose: 118 ml Propofol (Diprivan 20 Ml) Confirm Administered Dose 200 mg .ROUTE .STK-MED ONE Stop: 11/17/18 15:42 Rocuronium [place] (Zemuron) Confirm Administered Dose 50 mg .ROUTE .STK-MED ONE Stop: 11/17/18 17:01 Senna/Docusate Sodium (Senna Plus) 2 tab PO BEDTIME [facility] Last Admin: 11/22/18 21:33 Dose: 2 tab Sodium Chloride ([place] Nasal [place]) 0 ml NASBOTH DAILY [facility] Last Admin: 11/23/18 08:30 Dose: 1 spray Succinylcholine Chloride (Quelicin) Confirm Administered Dose 200 mg .ROUTE .STK -MED ONE Stop: 11/17/18 17:01 Tamsulosin HCl (Flomax) 0.4 mg PO BEDTIME [facility] Last Admin: 11/22/18 21:33 Dose: 0.4 mg Vancomycin HCl (Vancomycin) Confirm Administered Dose 2 gm .ROUTE .STK-MED ONE Stop: 11/17/18 19:51 Last Admin: 11/17/18 20:37 Dose: Not Given Warfarin Sodium (Coumadin) 5 mg PO DAILY@1300 [facility] Last Admin: 11/23/18 12:22 Dose: 5 mg Warfarin Sodium (Coumadin) 2.5 mg PO ONETIME ONE Stop: 11/20/18 14:01 Last Admin: 11/20/18 13:48 Dose: 2.5 mg Warfarin Sodium (Coumadin) 2.5 mg PO ONETIME ONE Stop: 11/21/18 13:01 Last Admin: 11/21/18 14:35 Dose: 2.5 mg - Exam Wound/Incisions: Healing Well, No Drainage General: Alert, Oriented HEENT: Pupils Equal Neck: Supple Lungs: Clear to Auscultation, Normal Respiratory Effort Cardiovascular: Regular Rate, Regular Rhythm GI/Abdominal Exam: Normal Bowel Sounds, Soft, Non-Tender, No Organomegaly, No Distention, No Abnormal Bruit, No Mass, Pelvis Stable Extremities: Other (negative Terry's) Skin: Warm, Dry, Intact Neurological: No New Focal Deficit Psy/Mental Status: Alert, Normal Affect, Normal Mood - Problem List & Annotations (1) Status post total hip replacement, left SNOMED Code(s): 195914250012, 247342921264 Code(s): Z96.642 - PRESENCE OF LEFT ARTIFICIAL HIP JOINT Status: Acute (2) Status post incision and drainage SNOMED Code(s): 914455716, 137130984 Code(s): Z98.890 - OTHER SPECIFIED POSTPROCEDURAL STATES Status: Acute Annotation/Comment:: Left hip (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 SNOMED Code(s): 050796387 Code(s): T84.59XA - INFECT/INFLM REACTION DUE TO OTH INTERNAL JOINT PROSTH, INIT; Z96.649 - PRESENCE OF UNSPECIFIED ARTIFICIAL HIP JOINT Status: Acute Qualifiers: Laterality: left (4) Anemia following surgery SNOMED Code(s): 471842079, 212162942 Code(s): D64.9 - ANEMIA, UNSPECIFIED Status: Acute (5) Atrial fibrillation SNOMED Code(s): 82352024 Code(s): I48.91 - UNSPECIFIED ATRIAL FIBRILLATION Status: Chronic Qualifiers: Atrial fibrillation type: chronic Qualified Code(s): I48.2 - Chronic atrial fibrillation - Problem List Review Problem List Initiated/Reviewed/Updated: Yes - Assessment Assessment (Free Text/Narrative):: Tolerating Vanco, up with PT, SNF bed available tomorrow - Plan Plan (Free Text/Narrative):: Continue PT/OT, continue Vanco for additional 5 weeks, anticipate discharge tomorrow.
--- NOTE | 2018-12-21 15:56 | PCM.DCSUM1 ---
Discharge Summary - Hospital Course Free Text/Narrative:: 78 year old male admitted with drainage from left hip incision from recent total hip. Increased pain and warmth around the incision, no fevers of chills. Dr. Lopez obtained a culture from the wound late the day prior to admission before starting antibiotics. Diagnosis: Stroke: No - Discharge Data Discharge Date: 11/23/18 Discharge Disposition: DC/Tfer to SNF 03 Condition: Good - Discharge Diagnosis/Problem(s) (1) Status post total hip replacement, left SNOMED Code(s): 072114465524, 404975616871 ICD Code: Z96.642 - PRESENCE OF LEFT ARTIFICIAL HIP JOINT Status: Acute (2) Status post incision and drainage SNOMED Code(s): 011392338, 137146549 ICD Code: Z98.890 - OTHER SPECIFIED POSTPROCEDURAL STATES Status: Acute Problem Details: Left hip (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 SNOMED Code(s): 856300136 ICD Code: T84.59XA - INFECT/INFLM REACTION DUE TO OTH INTERNAL JOINT PROSTH, INIT; Z96.649 - PRESENCE OF UNSPECIFIED ARTIFICIAL HIP JOINT Status: Acute Qualifiers: Laterality: left (4) Anemia following surgery SNOMED Code(s): 135182167, 400965382 ICD Code: D64.9 - ANEMIA, UNSPECIFIED Status: Acute (5) Atrial fibrillation SNOMED Code(s): 36831171 ICD Code: I48.91 - UNSPECIFIED ATRIAL FIBRILLATION Status: Chronic Qualifiers: Atrial fibrillation type: chronic Qualified Code(s): I48.2 - Chronic atrial fibrillation - Patient Summary/Data Operative Procedure(s) Performed: Irrigation and debridement of left hip Consults: Consultations 11/17/18 10:30 PT Evaluation and Treatment [CONS] Routine Please Evaluate and Treat. PT Reason for Consult: Ambulation Discharge Disposition: Home w Home Health Special Instructions: posterior hip precautions, WBAT This query below is only for informational purposes and is not editable. 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 Cultures Staph Epidermatis sensitive to multiple antibiotics. Started on IV Vancomycin and has continued with it. Tolerated Vanco without reaction. Improved with PT over the course of his stay. Arrangements made for return to SNF for continued IV antibiotics and PT/OT. Plan IV antibiotics for 6 weeks total. Follow up in clinic in 2 weeks. - Patient Instructions Diet: Usual Diet as Tolerated Activity: As Tolerated, Full Weight Bearing Showering/Bathing: May Shower Wound/Incision Care: Keep Operative Site/Wound Site Clean and Dry Notify Provider of: Fever, Increased Pain, Swelling and Redness, Drainage, Nausea and/or Vomiting - Discharge Plan *PRESCRIPTION DRUG MONITORING PROGRAM REVIEWED*: No *COPY OF PRESCRIPTION DRUG MONITORING REPORT IN PATIENT HIRO: No Home Medications: Home Meds Hydrochlorothiazide 25 mg PO DAILY 12/04/15 [History] Lisinopril 40 mg PO DAILY 12/04/15 [History] Warfarin [Coumadin] 5 mg PO DAILY 12/04/15 [History] Acetaminophen [Tylenol] 650 mg PO Q6H #200 tablet 04/21/17 [Rx] Docusate Sodium/Sennosides [Senna Plus] 2 tab PO BEDTIME #60 tablet 04/21/17 [Rx ] Tamsulosin [Flomax] 0.4 mg PO BEDTIME #30 cap.er 04/21/17 [Rx] Loratadine/Pseudoephedrine [Claritin-D 24 Hour Tablet] 1 each PO ASDIRECTED [History] Multivitamin with Minerals [Multiple Vitamin] 1 tab PO DAILY 11/05/18 [History] Nitroglycerin 0.3 mg SL ASDIRECTED 11/05/18 [History] Pantoprazole Sodium 40 mg PO DAILY 11/05/18 [History] Sodium Chloride 0.65% [[place] Saline] 2 squirt NASBOTH ASDIRECTED 11/05/18 [History ] amLODIPine Besylate [Amlodipine Besylate] 5 mg PO DAILY 11/05/18 [History] levETIRAcetam [Keppra] 500 mg PO BID 11/05/18 [History] Naproxen Sodium [Aleve] 220 mg PO Q12H 11/09/18 [History] Acetaminophen/oxyCODONE [Percocet 325-5 MG] 1 tab PO Q6H PRN 11/17/18 [History] Cephalexin [Keflex] 500 mg PO QID 11/17/18 [History] Vancomycin HCl/D5W [Vancomycin 1.5 Gram/250 ml-D5w] 1.5 gm IV BID 12/03/18 [ History] oxyCODONE HCl/Acetaminophen [Percocet 5-325 mg Tablet] 1 each PO Q6HR PRN #28 tablet 12/03/18 [Rx] Oxygen Therapy Mode: Room Air - Discharge Summary/Plan Comment DC Time >30 min.: Yes - Patient Data Vitals - Most Recent: Last Vital Signs Temp 36.0 C 11/23/18 06:00 Pulse 71 11/23/18 06:00 Resp 16 11/23/18 06:00 BP 124/76 11/23/18 08:29 Pulse Ox 98 11/23/18 06:00 Weight - Most Recent: 122.47 kg Med Orders - Current: Current Medications Discontinued Medications Acetaminophen (Tylenol) 650 mg PO Q6H [facility] Stop: 12/01/18 12:31 Last Admin: 11/23/18 12:22 Dose: 650 mg Acetaminophen (Tylenol) 650 mg PO Q6H PRN PRN Reason: PAIN Amlodipine Besylate (Norvasc) 5 mg PO DAILY [facility] Last Admin: 11/23/18 08:29 Dose: 5 mg Bandage/Support Products ( Nasal Mosaic Worker) 1 applic NASBOTH BID [facility] Stop: 11/24/18 09:01 Last Admin: 11/23/18 08:27 Dose: 1 applic Bupivacaine HCl (Marcaine 0.5%) Confirm Administered Dose 50 ml .ROUTE .STK-MED ONE Stop: 11/17/18 14:05 Last Admin: 11/17/18 17:16 Dose: 50 ml Bupivacaine HCl (Marcaine 0.5%) Confirm Administered Dose 50 ml .ROUTE .STK-MED ONE Stop: 11/17/18 16:27 Dexamethasone (Dexamethasone) Confirm Administered Dose 4 mg .ROUTE .STK-MED ONE Stop: 11/17/18 17:01 Docusate Sodium (Colace) 100 mg PO BID PRN PRN Reason: Constipation Last Admin: 11/19/18 12:31 Dose: 100 mg Fentanyl (Sublimaze) Confirm Administered Dose 100 mcg .ROUTE .STK-MED ONE Stop: 11/17/18 15:42 Fentanyl (Sublimaze) Confirm Administered Dose 250 mcg .ROUTE .STK-MED ONE Stop: 11/17/18 16:58 Gentamicin Sulfate (Gentamicin) Confirm Administered Dose 240 mg .ROUTE .STK- MED ONE Stop: 11/17/18 14:05 Glycopyrrolate (Robinul) Confirm Administered Dose 1 mg .ROUTE .STK-MED ONE Stop: 11/17/18 17:01 Hydrochlorothiazide (Hydrochlorothiazide) 25 mg PO DAILY [facility] Last Admin: 11/23/18 08:27 Dose: 25 mg Cefazolin Sodium/Dextrose 2 gm (/ Premix) 50 mls @ 100 mls/hr IV Q8H [facility] Stop: 11/17/18 20:29 Last Admin: 11/17/18 19:47 Dose: 100 mls/hr Lactated Ringer's (Ringers, Lactated) 1,000 mls @ 100 mls/hr IV ASDIRECTED [facility] Last Admin: 11/20/18 04:53 Dose: 100 mls/hr Lactated Ringer's (Ringers, Lactated) Confirm Administered Dose 1,000 mls @ as directed .ROUTE .STK-MED ONE Stop: 11/17/18 17:55 Vancomycin HCl 1 gm/ Sodium (Chloride) 250 mls @ 150 mls/hr IV Q12H [facility] Last Admin: 11/18/18 07:56 Dose: Not Given Vancomycin HCl 2 gm/ Sodium (Chloride) 500 mls @ 250 mls/hr IV ONETIME ONE Stop: 11/17/18 21:59 Last Admin: 11/17/18 20:30 Dose: 250 mls/hr Vancomycin HCl 1.75 gm/ Sodium (Chloride) 250 mls @ 166.667 mls/hr IV Q18H [facility] Stop: 11/19/18 10:00 Last Admin: 11/19/18 07:35 Dose: 166.667 mls/hr Vancomycin HCl 1.75 gm/ Sodium (Chloride) 250 mls @ 166.667 mls/hr IV Q12H [facility] Last Admin: 11/21/18 19:33 Dose: 166.667 mls/hr Vancomycin HCl 1.5 gm/ Sodium (Chloride) 250 mls @ 167 mls/hr IV Q12H [facility] Last Admin: 11/23/18 09:54 Dose: 167 mls/hr Levetiracetam (Keppra) 500 mg PO BID [facility] Last Admin: 11/23/18 08:28 Dose: 500 mg Lidocaine HCl (Xylocaine-Mpf 1%) 5 ml INJECT ONETIME ONE Stop: 11/19/18 15:52 Last Admin: 11/19/18 16:13 Dose: 5 ml Lisinopril (Prinivil) 40 mg PO DAILY [facility] Last Admin: 11/23/18 08:29 Dose: 40 mg Midazolam HCl (Versed 1 Mg/Ml) Confirm Administered Dose 2 mg .ROUTE .STK-MED ONE Stop: 11/17/18 15:42 Morphine Sulfate (Morphine) 2 mg IVPUSH Q1H PRN PRN Reason: Pain (severe 7-10) Morphine Sulfate (Morphine) 2 mg IM ONETIME ONE Stop: 11/17/18 18:10 Last Admin: 11/17/18 18:18 Dose: 2 mg Multivitamins/Minerals (Thera M Plus) 1 tab PO DAILY [facility] Last Admin: 11/23/18 08:29 Dose: 1 tab Naproxen (Naproxen Sodium) 220 mg PO Q12H [facility] Last Admin: 11/23/18 07:52 Dose: 220 mg Neostigmine Methylsulfate (Neostigmine) Confirm Administered Dose 5 mg .ROUTE .STK-MED ONE Stop: 11/17/18 17:01 Nitroglycerin (Nitrostat) 0.4 mg SL ASDIRECTED PRN PRN Reason: Chest Pain Vanco Dosing Per (Pharmacy) 0 each IV DAILY [facility] Last Admin: 11/18/18 10:12 Dose: Not Given Ondansetron HCl (Zofran) Confirm Administered Dose 4 mg .ROUTE .STK-MED ONE Stop: 11/17/18 17:01 Ondansetron HCl (Zofran) 4 mg IVPUSH Q6H PRN PRN Reason: Nausea/Vomiting Last Admin: 11/21/18 18:19 Dose: 4 mg Oxycodone HCl (Oxycodone) 5 mg PO Q4H PRN PRN Reason: Pain (moderate 4-6) Last Admin: 11/23/18 08:27 Dose: 5 mg Oxycodone HCl (Oxycodone) 10 mg PO Q4H PRN PRN Reason: Pain (severe 7-10) Last Admin: 11/22/18 13:51 Dose: 10 mg Oxycodone/Acetaminophen (Percocet 325-5 Mg) 1 tab PO Q6H PRN PRN Reason: Pain Oxycodone/Acetaminophen (Percocet 325-5 Mg) 1 - 2 tab PO Q6H PRN PRN Reason: Pain (severe 7-10) Last Admin: 11/18/18 08:07 Dose: 1 tab Pantoprazole Sodium (Protonix) 40 mg PO DAILY@0730 [facility] Last Admin: 11/23/18 07:52 Dose: 40 mg Loratadine/Pseudoephedrine ( Claritin-D 24 Hour Tablet)Pom 0 each PO DAILY [facility] Last Admin: 11/23/18 08:29 Dose: Not Given Polyethylene Glycol (Miralax) 17 gm PO BID PRN PRN Reason: Constipation Povidone Iodine (Betadine 10% Soln) Confirm Administered Dose 1 ml .ROUTE .STK- MED ONE Stop: 11/17/18 14:10 Last Admin: 11/17/18 17:17 Dose: 118 ml Propofol (Diprivan 20 Ml) Confirm Administered Dose 200 mg .ROUTE .STK-MED ONE Stop: 11/17/18 15:42 Rocuronium Chappell (Zemuron) Confirm Administered Dose 50 mg .ROUTE .STK-MED ONE Stop: 11/17/18 17:01 Senna/Docusate Sodium (Senna Plus) 2 tab PO BEDTIME [facility] Last Admin: 11/22/18 21:33 Dose: 2 tab Sodium Chloride ([place] Nasal [place]) 0 ml NASBOTH DAILY [facility] Last Admin: 11/23/18 08:30 Dose: 1 spray Succinylcholine Chloride (Quelicin) Confirm Administered Dose 200 mg .ROUTE .STK -MED ONE Stop: 11/17/18 17:01 Tamsulosin HCl (Flomax) 0.4 mg PO BEDTIME [facility] Last Admin: 11/22/18 21:33 Dose: 0.4 mg Vancomycin HCl (Vancomycin) Confirm Administered Dose 2 gm .ROUTE .STK-MED ONE Stop: 11/17/18 19:51 Last Admin: 11/17/18 20:37 Dose: Not Given Warfarin Sodium (Coumadin) 5 mg PO DAILY@1300 [facility] Last Admin: 11/23/18 12:22 Dose: 5 mg Warfarin Sodium (Coumadin) 2.5 mg PO ONETIME ONE Stop: 11/20/18 14:01 Last Admin: 11/20/18 13:48 Dose: 2.5 mg Warfarin Sodium (Coumadin) 2.5 mg PO ONETIME ONE Stop: 11/21/18 13:01 Last Admin: 11/21/18 14:35 Dose: 2.5 mg
== END 2018-11-23 12:58 | DRG 467 ==
LOC: JP.ORTCL 09:54 → JP.MS 10:30
PROVIDERS: ADMIT Specialist; ATTEND Specialist
PROC: 0JDM0ZZ Extraction of Left Upper Leg Subcutaneous Tissue and Fascia, Open Approach (ICD-10-PCS; principal; 2018-11-17)
PROC: 0SWB0JZ Revision of Synthetic Substitute in Left Hip Joint, Open Approach (ICD-10-PCS; 2018-11-17)
PROC: 0KDP0ZZ Extraction of Left Hip Muscle, Open Approach (ICD-10-PCS; 2018-11-17)
PROC: 0QD70ZZ Extraction of Left Upper Femur, Open Approach (ICD-10-PCS; 2018-11-17)
PROC: 0KDR0ZZ Extraction of Left Upper Leg Muscle, Open Approach (ICD-10-PCS; 2018-11-17)
PROC: 02H633Z Insertion of Infusion Device into Right Atrium, Percutaneous Approach (ICD-10-PCS; 2018-11-20)
DX: M25.552 Pain in left hip (principal); T84.52XA Infection and inflammatory reaction due to internal left hip prosthesis, initial encounter; M96.842 Postprocedural seroma of a musculoskeletal structure following a musculoskeletal system procedure; M96.840 Postprocedural hematoma of a musculoskeletal structure following a musculoskeletal system procedure; B95.7 Other staphylococcus as the cause of diseases classified elsewhere; Z96.642 Presence of left artificial hip joint; I10 Essential (primary) hypertension; K59.00 Constipation, unspecified; J30.9 Allergic rhinitis, unspecified; H54.7 Unspecified visual loss; I48.2 Chronic atrial fibrillation; I25.2 Old myocardial infarction; Z95.0 Presence of cardiac pacemaker; M19.90 Unspecified osteoarthritis, unspecified site; R33.9 Retention of urine, unspecified; F32.9 Major depressive disorder, single episode, unspecified; D64.9 Anemia, unspecified; Z79.2 Long term (current) use of antibiotics; Z85.038 Personal history of other malignant neoplasm of large intestine; Z87.891 Personal history of nicotine dependence; Z79.01 Long term (current) use of anticoagulants; Z88.0 Allergy status to penicillin; Z88.2 Allergy status to sulfonamides; E66.9 Obesity, unspecified; Z68.38 Body mass index [BMI] 38.0-38.9, adult; Z90.49 Acquired absence of other specified parts of digestive tract; Z98.890 Other specified postprocedural states
CPT/HCPCS: 36415; 36569; 71045; 71045-26; 80048; 80053; 80202; 85025; 85027; 85610; 85651; 86140; 87070; 87075; 87077; 87186; 87205; 97110-GP; 97140-GP; 97161-GP; 97530-GP; 97535-GP; 97605; A9270-GY; C1751; J0330; J0690; J1100; J1580; J2001; J2250; J2270; J2405; J2704; J2710; J3010; J3370; J3490; J7040; J7050; J7120

== ENCOUNTER 2021-01-20 00:02 | Inpatient (IN) | payer MEDICARE ==
[2021-01-20] MEDS ORDERED: Sodium Chloride 0.9% 1,000 ML IV SCH ×2 (03:30→05:15)
--- NOTE | 2021-01-20 03:32 | EDM.PDOC ---
ED HPI GENERAL MEDICAL PROBLEM - General Chief Complaint: Cardiovascular Problem Stated Complaint: AMBULENCE Time Seen by Provider: 01/20/21 00:04 Source of Information: Reports: Patient History Limitations: Reports: No Limitations - History of Present Illness INITIAL COMMENTS - FREE TEXT/NARRATIVE: Jeremy is an 80-year-old male brought in by [facility] for evaluation of generaliz ed weakness and hypotension. The patient has not been feeling well for the last couple of days but today was unable to even get out of bed. He states that change in position makes him feel quite dizzy. Patient recently underwent a cystoscopy at [facility] in [place]. Patient lives by himself in a trailer and EMS reports that they had to find the sorto to the trailer to get into make contact with the patient because he was even unable to get to the door inside the trailer. They noted the patient to be quite hypotensive so they established to IVs each running 500 cc of normal saline. They reportedly are getting systolic pressures in the 80s. The patient has a pacemaker and has and what they thought was a left bundle branch block. Although the patient is alert and oriented, he is not very forthcoming with information. He is on clear on what his medications are although he does state that he did restart his Coumadin. He normally doctors with Ry Lopez MD in [place] and recently had a urologic work-up at [facility] in [place], [place] for BPH and difficulty with urination thought to be due to problems ongoing with the foreskin overgrowing the glans penis. - Related Data Allergies Allergy/AdvReac Type Severity Reaction Status Date / Time Penicillins Allergy Cannot Verified 01/20/21 00:07 Remember Sulfa (Sulfonamide Allergy Itching Verified 01/20/21 00:07 Antibiotics) Home Meds: Home Meds Hydrochlorothiazide 25 mg PO DAILY 12/04/15 [History] Lisinopril 40 mg PO DAILY 12/04/15 [History] Warfarin [Coumadin] 5 mg PO DAILY 12/04/15 [History] Acetaminophen [Tylenol] 650 mg PO Q6H #200 tablet 04/21/17 [Rx] Multivitamin with Minerals [Multiple Vitamin] 1 tab PO DAILY 11/05/18 [History] Nitroglycerin 0.3 mg SL ASDIRECTED 11/05/18 [History] Pantoprazole Sodium 40 mg PO DAILY 11/05/18 [History] Sodium Chloride 0.65% [[place] Saline] 2 squirt NASBOTH ASDIRECTED 11/05/18 [History] levETIRAcetam [Keppra] 500 mg PO BID 11/05/18 [History] Docusate Sodium/Sennosides [Senna Plus] 1 tab PO ASDIRECTED PRN 01/20/21 [History] Gabapentin [Neurontin] 800 mg PO TID 01/20/21 [History] Loratadine [Claritin] 10 mg PO DAILY 01/20/21 [History] Tamsulosin [Flomax] 0.4 mg PO DAILY 01/20/21 [History] tiZANidine [Zanaflex] 8 mg PO TID 01/20/21 [History] Past Medical History HEENT History: Reports: Allergic Rhinitis, Impaired Vision, Sinusitis Cardiovascular History: Reports: Afib, Hypertension, [place], Pacemaker Respiratory History: Reports: SOB Gastrointestinal History: Reports: Colon Polyp, Hemorrhoids Genitourinary History: Reports: Other (See Below) Other Genitourinary History: urinary retention. 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 Neurological History: Reports: Other (See Below) Other Neuro History: some numbness, tingling to feet since back surgery Psychiatric History: Reports: Depression Endocrine/Metabolic History: Reports: Obesity/BMI 30+ Hematologic History: Reports: Anemia, Anticoagulation Therapy Immunologic History: Reports: None Oncologic (Cancer) History: Reports: Colon Dermatologic History: Reports: None - Infectious Disease History Infectious Disease History: Reports: Chicken Pox, Measles, Mumps, Shingles - Past Surgical History Head Surgeries/Procedures: Reports: None HEENT Surgical History: Reports: Adenoidectomy, Naso-Sinus Surgery, Tonsillectomy Cardiovascular Surgical History: Reports: Pacer Respiratory Surgical History: Reports: None GI Surgical History: Reports: Colon, Colonoscopy, Other (See Below) Other GI Surgeries/Procedures: hemicoloectomy Male Surgical History: Reports: None, Other (See Below) Other Male Surgeries/Procedures: "skin keeps closing up over the uretha, repeated surgeries to open it up Endocrine Surgical History: Reports: None Neurological Surgical History: Reports: Lumbar Spine, Other (See Below) Other Neurological Surgeries/Procedures: back surgery Musculoskeletal Surgical History: Reports: Hip Replacement Other Musculoskeletal Surgeries/Procedures:: left-11/09/18 Oncologic Surgical History: Reports: None Social & Family History - Family History Family Medical History: No Pertinent Family History - Tobacco Use Tobacco Use Status *Q: Never Tobacco User - Caffeine Use Caffeine Use: Reports: Coffee - Recreational Drug Use Recreational Drug Use: No ED ROS GENERAL - Review of Systems Review Of Systems: See Below Constitutional: Reports: Weakness (Generalized), Fatigue HEENT: Reports: No Symptoms Respiratory: Reports: No Symptoms Cardiovascular: Reports: Blood Pressure Problem (Hypotension that worsens with orthostatic position changes) Endocrine: Reports: Fatigue GI/Abdominal: Reports: No Symptoms : Reports: No Symptoms Musculoskeletal: Reports: Back Pain Skin: Reports: No Symptoms Neurological: Reports: Dizziness Psychiatric: Reports: No Symptoms Hematologic/Lymphatic: Reports: No Symptoms Immunologic: Reports: No Symptoms ED EXAM, GENERAL - Physical Exam Exam: See Below Exam Limited By: No Limitations General Appearance: Alert, Mild Distress, Obese Eye Exam: Bilateral Eye: EOMI, PERRL Throat/Mouth: Normal Inspection, Normal Lips, Normal Oropharynx, Normal Voice, No Airway Compromise Head: Atraumatic, Normocephalic Course - Vital Signs Last Recorded V/S: Last Vital Signs Temp 36.3 C 01/20/21 00:42 Pulse 68 01/20/21 03:08 Resp 16 01/20/21 03:08 BP 102/54 L 01/20/21 03:08 Pulse Ox 93 L 01/20/21 03:08 - Orders/Labs/Meds Orders: Active Orders 24 hr Category Date Time Status Chest 1V Frontal [CR] Stat Exams 01/20/21 00:15 Taken CULTURE URINE [RM] Stat Lab 01/20/21 00:15 Ordered UA W/MICROSCOPIC [URIN] Stat Lab 01/20/21 00:15 Ordered Sodium Chloride 0.9% [Normal Saline] 1,000 ml Med 01/20/21 03:30 Active IV ASDIRECTED Medication Orders Sodium Chloride (Normal Saline) 1,000 mls @ 999 mls/hr IV ASDIRECTED [facility] Labs: Laboratory Tests 01/20/21 01/20/21 01/20/21 Range/Units 00:20 00:20 00:20 WBC 16.6 H (4.5-11.0) K/uL RBC 4.18 L (4.30-5.90) M/uL Hgb 12.5 (12.0-15.0) g/dL Hct 38.4 L (40.0-54.0) % MCV 92 (80-98) fL MCH 30 (27-31) pg MCHC 33 (32-36) % Plt Count 130 L (150-400) K/uL Neut % (Auto) 85.3 H (36-66) % Lymph % (Auto) 6.5 L (24-44) % Nuckolls % (Auto) 7.8 H (2-6) % Eos % (Auto) 0.3 L (2-4) % Baso % (Auto) 0.1 (0-1) % PT (9.5-12.0) sec INR (0.80-1.20) Sodium 139 L (140-148) mmol/L Potassium 4.2 (3.6-5.2) mmol/L Chloride 103 (100-108) mmol/L Carbon Dioxide 28 (21-32) mmol/L Anion Gap 12.2 (5.0-14.0) mmol/L BUN 24 H (7-18) mg/dL Creatinine 1.7 H (0.8-1.3) mg/dL Est Cr Clr Drug Dosing 35.78 mL/min Estimated GFR (MDRD) 39 L (>60) Glucose 150 H (74-106) mg/dL Lactic Acid 1.6 (0.4-2.0) mmol/L Calcium 9.1 (8.5-10.1) mg/dL Total Bilirubin 0.6 (0.2-1.0) mg/dL AST 19 (15-37) U/L ALT 32 (12-78) U/L Alkaline Phosphatase 85 (46-116) U/L C-Reactive Protein 8.04 H (0.0-0.3) mg/dL Total Protein 5.6 L (6.4-8.2) g/dL Albumin 2.7 L (3.4-5.0) g/dL Globulin 2.9 (2.3-3.5) g/dL Albumin/Globulin Ratio 0.9 L (1.2-2.2) SARS CoV-2 RNA Rapid SHIRIN 01/20/21 01/20/21 Range/Units 00:20 01:46 WBC (4.5-11.0) K/uL RBC (4.30-5.90) M/uL Hgb (12.0-15.0) g/dL Hct (40.0-54.0) % MCV (80-98) fL MCH (27-31) pg MCHC (32-36) % Plt Count (150-400) K/uL Neut % (Auto) (36-66) % Lymph % (Auto) (24-44) % Nuckolls % (Auto) (2-6) % Eos % (Auto) (2-4) % Baso % (Auto) (0-1) % PT 31.7 H (9.5-12.0) sec INR 2.97 H (0.80-1.20) Sodium (140-148) mmol/L Potassium (3.6-5.2) mmol/L Chloride (100-108) mmol/L Carbon Dioxide (21-32) mmol/L Anion Gap (5.0-14.0) mmol/L BUN (7-18) mg/dL Creatinine (0.8-1.3) mg/dL Est Cr Clr Drug Dosing mL/min Estimated GFR (MDRD) (>60) Glucose (74-106) mg/dL Lactic Acid (0.4-2.0) mmol/L Calcium (8.5-10.1) mg/dL Total Bilirubin (0.2-1.0) mg/dL AST (15-37) U/L ALT (12-78) U/L Alkaline Phosphatase (46-116) U/L C-Reactive Protein (0.0-0.3) mg/dL Total Protein (6.4-8.2) g/dL Albumin (3.4-5.0) g/dL Globulin (2.3-3.5) g/dL Albumin/Globulin Ratio (1.2-2.2) SARS CoV-2 RNA Rapid SHIRIN Negative Meds: Medications Generic Name Dose Route Start Last Admin Trade Name Freq PRN Reason Stop Dose Admin Sodium Chloride 1,000 mls @ 999 mls/hr 01/20/21 03:30 Normal Saline IV ASDIRECTED ALEA - Radiology Interpretation Free Text/Narrative:: I reviewed the 1 view chest x-ray showing no acute pulmonary infiltrates. There is mild cardiomegaly. - Re-Assessments/Exams Free Text/Narrative Re-Assessment/Exam: 01/20/21 05:02 I reviewed the patient's labs showing a leukocytosis at 16.6 with a left shift 77% neutrophils. His hemoglobin is 12.5 with hematocrit of 38.4 and a platelet count of 130,000. His comprehensive metabolic panel shows a sodium 139, potassium 4.2, chloride of 103, bicarbonate of 28, BUN of 24 with a creatinine 1.7 and a GFR of 39. Glucose is 150. His PT is 31.7 with an INR of 2.97. His lactate is 1.6. His C-reactive protein is elevated at 8.04. The Covid test is negative. Chest x-ray was unremarkable for any acute infiltrates or adenopathy. Urinalysis was obtained showing positive leukocyte esterase, 0-5 RBCs with 10-20 WBCs. With his leukocytosis, I believe this is likely the nidus for his infection. We will start him on ceftriaxone 1 g IV while we await the results of his urine culture. I discussed the case with Dr. Ry Lopez who will come in to admit the patient. We will continue IV hydration at 150 cc/h. We will have to make sure to keep an eye on the patient's INR with the Rocephin to make sure that it does not escalate up. Unfortunately, there are not very many antibiotics that will not affect vitamin K. Departure - Departure Time of Disposition: 05:08 Disposition: Admitted As Inpatient 66 Clinical Impression: History of cystoscopy, Complicated UTI (urinary tract infection), Generalized muscle weakness Hypotension Qualifiers: Hypotension type: hypotension due to hypovolemia Qualified Code(s): I95.89 - Other hypotension; E86.1 - Hypovolemia Referrals: PCP,None [Primary Care Provider] - Forms: ED Department Discharge Sepsis Event Note (ED) - Evaluation Sepsis Screening Result: No Definite Risk - Focused Exam Vital Signs: Vital Signs Temp Pulse Resp BP Pulse Ox 01/20/21 03:08 68 16 102/54 L 93 L 01/20/21 02:00 68 18 98/47 L 94 L 01/20/21 01:00 70 20 94/54 L 94 L 01/20/21 00:42 36.3 C 62 13 89/45 L 93 L 01/20/21 00:35 62 13 89/45 L 93 L 01/20/21 00:15 67 15 89/49 L 93 L 01/20/21 00:10 69 15 83/44 L 94 L 01/20/21 00:05 36.3 C 69 16 120/97 H 93 L - Problem List & Annotations (1) Complicated UTI (urinary tract infection) SNOMED Code(s): 61756242 Code(s): N39.0 - URINARY TRACT INFECTION, SITE NOT SPECIFIED Status: Acute Priority: Medium Current Visit: Yes (2) Generalized muscle weakness SNOMED Code(s): 15097515, 12903670 Code(s): M62.81 - MUSCLE WEAKNESS (GENERALIZED) Status: Acute Priority: Medium Current Visit: Yes (3) History of cystoscopy SNOMED Code(s): 796237081, 659184274 Code(s): Z98.890 - OTHER SPECIFIED POSTPROCEDURAL STATES Status: Acute Priority: Medium Current Visit: Yes (4) Hypotension SNOMED Code(s): 99165646 Code(s): I95.9 - HYPOTENSION, UNSPECIFIED Status: Acute Priority: Medium Current Visit: Yes Qualifiers: Hypotension type: hypotension due to hypovolemia Qualified Code(s): I95.89 - Other hypotension; E86.1 - Hypovolemia - Problem List Review Problem List Initiated/Reviewed/Updated: Yes - My Orders Last 24 Hours: My Active Orders 01/20/21 00:15 Chest 1V Frontal [CR] Stat CULTURE URINE [RM] Stat UA W/MICROSCOPIC [URIN] Stat 01/20/21 03:30 Sodium Chloride 0.9% [Normal Saline] 1,000 ml IV ASDIRECTED - Assessment/Plan Last 24 Hours: My Active Orders 01/20/21 00:15 Chest 1V Frontal [CR] Stat CULTURE URINE [RM] Stat UA W/MICROSCOPIC [URIN] Stat 01/20/21 03:30 Sodium Chloride 0.9% [Normal Saline] 1,000 ml IV ASDIRECTED
[2021-01-20] MEDS ORDERED: cefTRIAXone 1 GM in Sodium Chloride 0.9% 50 ML IV ONE (05:06)
--- NOTE | 2021-01-20 06:16 | PCM.HP.2 ---
H&P History of Present Illness - General Date of Service: 01/20/21 Source of Information: Patient, EMS Notes Reviewed History Limitations: Reports: No Limitations - History of Present Illness Initial Comments - Free Text/Narative: He has a cystoscopy 3 days ago in [place] and woke up this morning and could not get out of bed because of weakness. 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 When he passes urine it sprays out and uses a large mouth bottle in order to not spray on the floor and miss the stool while passing urine. He does not want to have the surgery to fix the urethra problem. He called the EMS this morning who found his BP low and came into the ER by the ambulance. Upon standing his BP dropped to 60 systolic and was weak and dizzy. He is being admitted to control the infection and stabilize his BP. . Onset of Symptoms: Reports: Today, Sudden Location: Reports: Other (He felt weak yesterday) Worsens with: Reports: Movement Associated Symptoms: Reports: Weakness - Related Data Allergies/Adverse Reactions: Allergies Allergy/AdvReac Type Severity Reaction Status Date / Time Penicillins Allergy Cannot Verified 01/20/21 00:07 Remember Sulfa (Sulfonamide Allergy Itching Verified 01/20/21 00:07 Antibiotics) Home Medications: Home Meds Hydrochlorothiazide 25 mg PO DAILY 12/04/15 [History] Lisinopril 20 mg PO DAILY 12/04/15 [History] Warfarin [Coumadin] 5 mg PO DAILY 12/04/15 [History] Acetaminophen [Tylenol] 650 mg PO Q6H #200 tablet 04/21/17 [Rx] Multivitamin with Minerals [Multiple Vitamin] 1 tab PO DAILY 11/05/18 [History] Nitroglycerin 0.3 mg SL ASDIRECTED 11/05/18 [History] Pantoprazole Sodium 40 mg PO DAILY 11/05/18 [History] Sodium Chloride 0.65% [[place] Saline] 2 squirt NASBOTH ASDIRECTED 11/05/18 [History] levETIRAcetam [Keppra] 500 mg PO BID 11/05/18 [History] Docusate Sodium/Sennosides [Senna Plus] 1 tab PO ASDIRECTED PRN 01/20/21 [History] Gabapentin [Neurontin] 800 mg PO TID 01/20/21 [History] Loratadine [Claritin] 10 mg PO DAILY 01/20/21 [History] Tamsulosin [Flomax] 0.4 mg PO DAILY 01/20/21 [History] tiZANidine [Zanaflex] 8 mg PO TID 01/20/21 [History] Past Medical History HEENT History: Reports: Allergic Rhinitis, Impaired Vision, Sinusitis Cardiovascular History: Reports: Afib, Hypertension, [place], Pacemaker Respiratory History: Reports: SOB Gastrointestinal History: Reports: Colon Polyp, Hemorrhoids Genitourinary History: Reports: Other (See Below) Other Genitourinary History: urinary retention. 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 Neurological History: Reports: Other (See Below) Other Neuro History: some numbness, tingling to feet since back surgery Psychiatric History: Reports: Depression Endocrine/Metabolic History: Reports: Obesity/BMI 30+ Hematologic History: Reports: Anemia, Anticoagulation Therapy Immunologic History: Reports: None Oncologic (Cancer) History: Reports: Colon Dermatologic History: Reports: None - Infectious Disease History Infectious Disease History: Reports: Chicken Pox, Measles, Mumps, Shingles - Past Surgical History Head Surgeries/Procedures: Reports: None HEENT Surgical History: Reports: Adenoidectomy, Naso-Sinus Surgery, Tonsillectomy Cardiovascular Surgical History: Reports: Pacer Respiratory Surgical History: Reports: None GI Surgical History: Reports: Colon, Colonoscopy, Other (See Below) Other GI Surgeries/Procedures: hemicoloectomy Male Surgical History: Reports: None, Other (See Below) Other Male Surgeries/Procedures: "skin keeps closing up over the uretha, repeated surgeries to open it up Endocrine Surgical History: Reports: None Neurological Surgical History: Reports: Lumbar Spine, Other (See Below) Other Neurological Surgeries/Procedures: back surgery Musculoskeletal Surgical History: Reports: Hip Replacement Other Musculoskeletal Surgeries/Procedures:: left-11/09/18 Oncologic Surgical History: Reports: None Social & Family History - Family History Family Medical History: No Pertinent Family History - Tobacco Use Tobacco Use Status *Q: Never Tobacco User - Caffeine Use Caffeine Use: Reports: Coffee - Recreational Drug Use Recreational Drug Use: No H&P Review of Systems - Review of Systems: Review Of Systems: See Below General: Reports: Weakness, Fatigue HEENT: Reports: No Symptoms Pulmonary: Reports: No Symptoms Cardiovascular: Reports: Other (weakness with movement or standing.) Gastrointestinal: Reports: No Symptoms Genitourinary: Reports: Other (Pelvic pain to palpation) Musculoskeletal: Reports: No Symptoms Skin: Reports: No Symptoms Psychiatric: Reports: No Symptoms Neurological: Reports: Difficulty Walking, Weakness, Gait Disturbance Exam - Exam Exam: See Below - Vital Signs Vital Signs: Last Vital Signs Temp 97.3 F 01/20/21 00:42 Pulse 67 01/20/21 03:55 Resp 19 01/20/21 03:55 BP 101/54 L 01/20/21 03:55 Pulse Ox 96 01/20/21 03:55 Weight: 255 lb - Exam General: Alert, Oriented, Cooperative, Mild Distress HEENT: PERRLA, Hearing Intact, Mucosa Moist & [place], Nares Patent, Normal Nasal Septum, Posterior Pharynx Clear, Conjunctiva Clear, EOMI, EACs Clear, TMs Clear Neck: Supple, Trachea Midline, 2 Lungs: Clear to Auscultation, Normal Respiratory Effort Cardiovascular: Regular Rate, Regular Rhythm GI/Abdominal Exam: Normal Bowel Sounds, Soft, Non-Tender, No Organomegaly, No Distention, No Abnormal Bruit, No Mass, Pelvis Stable, Other (Pain to palpation on the pelvis) (Male) Exam: Other (Redness of the penile head) Back Exam: Normal Inspection, Full Range of Motion, NT Extremities: Normal Inspection, Normal Range of Motion, Non-Tender, No Pedal Edema, Normal Capillary Refill Peripheral Pulses: 1+: Radial (L), Radial (R) Neurological: Cranial Nerves Intact, Reflexes Equal Bilateral Neuro Extensive - Mental Status: Alert, Oriented x3 DTR: 1+: Bicep (L), Bicep (R) Psychiatric: Alert - Patient Data Lab Results Last 24 hrs: Laboratory Results - last 24 hr 01/20/21 01/20/21 01/20/21 Range/Units 00:20 00:20 00:20 WBC 16.6 H (4.5-11.0) K/uL RBC 4.18 L (4.30-5.90) M/uL Hgb 12.5 (12.0-15.0) g/dL Hct 38.4 L (40.0-54.0) % MCV 92 (80-98) fL MCH 30 (27-31) pg MCHC 33 (32-36) % Plt Count 130 L (150-400) K/uL Neut % (Auto) 85.3 H (36-66) % Lymph % (Auto) 6.5 L (24-44) % [place] % (Auto) 7.8 H (2-6) % Eos % (Auto) 0.3 L (2-4) % Baso % (Auto) 0.1 (0-1) % PT (9.5-12.0) sec INR (0.80-1.20) Sodium 139 L (140-148) mmol/L Potassium 4.2 (3.6-5.2) mmol/L Chloride 103 (100-108) mmol/L Carbon Dioxide 28 (21-32) mmol/L Anion Gap 12.2 (5.0-14.0) mmol/L BUN 24 H (7-18) mg/dL Creatinine 1.7 H (0.8-1.3) mg/dL Est Cr Clr Drug Dosing 35.78 mL/min Estimated GFR (MDRD) 39 L (>60) Glucose 150 H (74-106) mg/dL Lactic Acid 1.6 (0.4-2.0) mmol/L Calcium 9.1 (8.5-10.1) mg/dL Total Bilirubin 0.6 (0.2-1.0) mg/dL AST 19 (15-37) U/L ALT 32 (12-78) U/L Alkaline Phosphatase 85 (46-116) U/L C-Reactive Protein 8.04 H (0.0-0.3) mg/dL Total Protein 5.6 L (6.4-8.2) g/dL Albumin 2.7 L (3.4-5.0) g/dL Globulin 2.9 (2.3-3.5) g/dL Albumin/Globulin Ratio 0.9 L (1.2-2.2) Urine Color (YELLOW) Urine Appearance (CLEAR) Urine pH (5.0-8.0) Ur Specific [place] (1.008-1.030) Urine Protein (NEGATIVE) mg/dL Urine Glucose (UA) (NEGATIVE) mg/dL Urine Ketones (NEGATIVE) mg/dL Urine Occult Blood (NEGATIVE) Urine Nitrite (NEGATIVE) Urine Bilirubin (NEGATIVE) Urine Urobilinogen (0.2-1.0) EU/dL Ur Leukocyte Esterase (NEGATIVE) Urine RBC (0-5) Urine WBC (0-5) Ur Epithelial Cells Amorphous Sediment Urine Bacteria Urine Mucus SARS CoV-2 RNA Rapid SHIRIN 01/20/21 01/20/21 01/20/21 Range/Units 00:20 01:46 04:15 WBC (4.5-11.0) K/uL RBC (4.30-5.90) M/uL Hgb (12.0-15.0) g/dL Hct (40.0-54.0) % MCV (80-98) fL MCH (27-31) pg MCHC (32-36) % Plt Count (150-400) K/uL Neut % (Auto) (36-66) % Lymph % (Auto) (24-44) % [place] % (Auto) (2-6) % Eos % (Auto) (2-4) % Baso % (Auto) (0-1) % PT 31.7 H (9.5-12.0) sec INR 2.97 H (0.80-1.20) Sodium (140-148) mmol/L Potassium (3.6-5.2) mmol/L Chloride (100-108) mmol/L Carbon Dioxide (21-32) mmol/L Anion Gap (5.0-14.0) mmol/L BUN (7-18) mg/dL Creatinine (0.8-1.3) mg/dL Est Cr Clr Drug Dosing mL/min Estimated GFR (MDRD) (>60) Glucose (74-106) mg/dL Lactic Acid (0.4-2.0) mmol/L Calcium (8.5-10.1) mg/dL Total Bilirubin (0.2-1.0) mg/dL AST (15-37) U/L ALT (12-78) U/L Alkaline Phosphatase (46-116) U/L C-Reactive Protein (0.0-0.3) mg/dL Total Protein (6.4-8.2) g/dL Albumin (3.4-5.0) g/dL Globulin (2.3-3.5) g/dL Albumin/Globulin Ratio (1.2-2.2) Urine Color Yellow (YELLOW) Urine Appearance Slightly cloudy A (CLEAR) Urine pH 5.5 (5.0-8.0) Ur Specific [place] 1.020 (1.008-1.030) Urine Protein Negative (NEGATIVE) mg/dL Urine Glucose (UA) Negative (NEGATIVE) mg/dL Urine Ketones Negative (NEGATIVE) mg/dL Urine Occult Blood Negative (NEGATIVE) Urine Nitrite Negative (NEGATIVE) Urine Bilirubin Negative (NEGATIVE) Urine Urobilinogen 0.2 (0.2-1.0) EU/dL Ur Leukocyte Esterase Small H (NEGATIVE) Urine RBC 0-5 (0-5) Urine WBC 10-20 H (0-5) Ur Epithelial Cells Rare Amorphous Sediment Not seen Urine Bacteria Many Urine Mucus Not seen SARS CoV-2 RNA Rapid SHIRIN Negative Result Diagrams: 01/20/21 00:20 01/20/21 00:20 Sepsis Event Note - Evaluation Sepsis Screening Result: No Definite Risk - Focused Exam Vital Signs: Vital Signs Temp Pulse Resp BP Pulse Ox 01/20/21 03:55 67 19 101/54 L 96 01/20/21 03:08 68 16 102/54 L 93 L 01/20/21 02:00 68 18 98/47 L 94 L 01/20/21 01:00 70 20 94/54 L 94 L 01/20/21 00:42 97.3 F 62 13 89/45 L 93 L 01/20/21 00:35 62 13 89/45 L 93 L 01/20/21 00:15 67 15 89/49 L 93 L 01/20/21 00:10 69 15 83/44 L 94 L 01/20/21 00:05 97.3 F 69 16 120/97 H 93 L Problem List Initiated/Reviewed/Updated: Yes Orders Last 24hrs: Active Orders 24 hr Category Date Time Status Chest 1V Frontal [CR] Stat Exams 01/20/21 00:15 Taken CULTURE URINE [RM] Stat Lab 01/20/21 04:15 Received Sodium Chloride 0.9% [Normal Saline] 1,000 ml Med 01/20/21 03:30 Active IV ASDIRECTED Sodium Chloride 0.9% [Normal Saline] 1,000 ml Med 01/20/21 05:15 Active IV ASDIRECTED Medication Orders Sodium Chloride (Normal Saline) 1,000 mls @ 999 mls/hr IV ASDIRECTED [facility] Last Admin: 01/20/21 03:54 Dose: 999 mls/hr Documented by: MARK Sodium Chloride (Normal Saline) 1,000 mls @ 150 mls/hr IV ASDIRECTED [facility] Last Admin: 01/20/21 05:18 Dose: 150 mls/hr Documented by: MARK Assessment/Plan Comment:: Assessment/Plan: #1. Hypotension with Septicemia /UTI: Admitted to the hospital to rehydrate and will continue with Rocephin. A culture is pending of the urine. The urine showed many bacteria and WBC's. WBC 16.6 on CBC. #2. 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 History of HTN on Medication: #5. History of CVA #6. Chronic low back pain:
[2021-01-20] MEDS ORDERED: NITROGLYCERIN 0.3 MG SL SCH (07:00)
[2021-01-20] MEDS ORDERED: Sodium Chloride 0.65% Nasal Spray 45 ML Bottle NASBOTH PRN (07:00)
[2021-01-20] MEDS ORDERED: Nitroglycerin 0.4 MG Tab.SL SL PRN (07:16)
[2021-01-20] MEDS: tiZANidine 4 MG Tab PO SCH ×3 (08:31→21:23)
[2021-01-20] MEDS: Gabapentin 400 MG Cap PO SCH ×3 (08:31→20:32)
[2021-01-20] MEDS: Tamsulosin 0.4 MG Cap.ER PO SCH (08:32)
[2021-01-20] MEDS: Loratadine 10 MG Tab PO SCH (08:32)
[2021-01-20] MEDS: Multivitamins with Iron/Calcium/Folic Acid/Minerals Tab PO SCH (08:32)
[2021-01-20] MEDS: Pantoprazole 40 MG Tab.CR PO SCH (08:32)
[2021-01-20] MEDS ORDERED: Non-Formulary Medication 1 Each (Gabapentin [Neurontin] 800 MG Tablet) PO SCH (09:00)
[2021-01-20] MEDS ORDERED: Pantoprazole 40 MG Tab.CR PO SCH (09:00)
[2021-01-20] MEDS ORDERED: Non-Formulary Medication 1 Each (Multivitamin With Minerals [Multiple Vitamin] 1 EACH Tabl PO SCH (09:00)
[2021-01-20] MEDS: levETIRAcetam 250 MG Tab PO SCH ×2 (10:17→20:32)
[2021-01-20] MEDS ORDERED: tiZANidine 4 MG Tab PO PRN (17:23)
[2021-01-20] MEDS: Sodium Chloride 0.9% 1,000 ML IV SCH (18:20)
[2021-01-20] MEDS: Acetaminophen 500 MG Tab PO PRN (21:23)
[2021-01-21] MEDS: Sodium Chloride 0.9% 1,000 ML IV SCH (01:09)
[2021-01-21] MEDS: cefTRIAXone 1 GM in Sodium Chloride 0.9% 50 ML IV SCH (05:36)
[2021-01-21] MEDS: Pantoprazole 40 MG Tab.CR PO SCH (07:28)
[2021-01-21] MEDS: Gabapentin 400 MG Cap PO SCH ×3 (09:36→21:24)
[2021-01-21] MEDS: Multivitamins with Iron/Calcium/Folic Acid/Minerals Tab PO SCH (09:36)
[2021-01-21] MEDS: levETIRAcetam 250 MG Tab PO SCH ×2 (09:37→21:24)
[2021-01-21] MEDS: Tamsulosin 0.4 MG Cap.ER PO SCH (09:37)
[2021-01-21] MEDS: Loratadine 10 MG Tab PO SCH (09:37)
--- NOTE | 2021-01-21 11:53 | PCM.PN ---
- General Info Date of Service: 01/21/21 Subjective Update: He is still weak when walking and he states he is too weak to go home at the present time as he is unable to care for himself. - Review of Systems General: Reports: Weakness, Fatigue HEENT: Reports: No Symptoms Pulmonary: Reports: No Symptoms Cardiovascular: Reports: No Symptoms Gastrointestinal: Reports: No Symptoms Genitourinary: Reports: Frequency Musculoskeletal: Reports: Leg Pain Skin: Reports: No Symptoms Neurological: Reports: No Symptoms - Patient Data Vitals - Most Recent: Last Vital Signs Temp 98.7 F 01/21/21 07:15 Pulse 66 01/21/21 07:15 Resp 18 01/21/21 07:15 BP 125/70 01/21/21 07:15 Pulse Ox 98 01/21/21 07:15 Weight - Most Recent: 255 lb I&O - Last 24 Hours: Intake & Output 01/20/21 01/21/21 01/21/21 22:59 06:59 14:59 Intake Total 3000 2318 Output Total 900 1200 500 Balance 2100 1118 -500 Lab Results Last 24 Hours: Laboratory Results - last 24 hr 01/21/21 01/21/21 01/21/21 Range/Units 04:25 04:25 04:25 WBC 9.5 (4.5-11.0) K/uL RBC 4.40 (4.30-5.90) M/uL Hgb 13.0 (12.0-15.0) g/dL Hct 40.6 (40.0-54.0) % MCV 92 (80-98) fL MCH 30 (27-31) pg MCHC 32 (32-36) % Plt Count 116 L (150-400) K/uL Neut % (Auto) 79.9 H (36-66) % Lymph % (Auto) 12.7 L (24-44) % [place] % (Auto) 5.9 (2-6) % Eos % (Auto) 1.3 L (2-4) % Baso % (Auto) 0.2 (0-1) % PT 23.8 H (9.5-12.0) sec INR 2.22 H (0.80-1.20) Sodium 141 (140-148) mmol/L Potassium 3.9 (3.6-5.2) mmol/L Chloride 108 (100-108) mmol/L Carbon Dioxide 24 (21-32) mmol/L Anion Gap 8.8 (5.0-14.0) mmol/L BUN 17 (7-18) mg/dL Creatinine 1.1 (0.8-1.3) mg/dL Est Cr Clr Drug Dosing 55.30 mL/min Estimated GFR (MDRD) > 60 (>60) Glucose 135 H (74-106) mg/dL Calcium 9.3 (8.5-10.1) mg/dL Total Bilirubin 0.3 (0.2-1.0) mg/dL AST 17 (15-37) U/L ALT 31 (12-78) U/L Alkaline Phosphatase 86 (46-116) U/L Total Protein 5.8 L (6.4-8.2) g/dL Albumin 2.5 L (3.4-5.0) g/dL Globulin 3.3 (2.3-3.5) g/dL Albumin/Globulin Ratio 0.8 L (1.2-2.2) Myles Results Last 24 Hours: Microbiology 01/20/21 04:15 Urine Culture - Preliminary Urine, Voided Med Orders - Current: Current Medications Acetaminophen (Acetaminophen 500 Mg Tab) 1,000 mg PO BEDTIME PRN PRN Reason: Pain Last Admin: 01/20/21 21:23 Dose: 1,000 mg Documented by: Gabapentin (Gabapentin 400 Mg Cap) 800 mg PO TID [facility] Last Admin: 01/21/21 09:36 Dose: 800 mg Documented by: Ceftriaxone Sodium 1 gm/ (Sodium Chloride) 50 mls @ 100 mls/hr IV Q24H [facility] Last Admin: 01/21/21 05:36 Dose: 100 mls/hr Documented by: Levetiracetam (Levetiracetam 250 Mg Tab) 500 mg PO BID [facility] Last Admin: 01/21/21 09:37 Dose: 500 mg Documented by: Loratadine (Loratadine 10 Mg Tab) 10 mg PO DAILY [facility] Last Admin: 01/21/21 09:37 Dose: 10 mg Documented by: Multivitamins/Minerals (Multivitamins With Iron/Calcium/Folic Acid/Minerals Tab) 1 tab PO DAILY [facility] Last Admin: 01/21/21 09:36 Dose: 1 tab Documented by: Nitroglycerin (Nitroglycerin 0.4 Mg Tab.Sl) 0.4 mg SL ASDIRECTED PRN PRN Reason: CHESTPAIN Pantoprazole Sodium (Pantoprazole 40 Mg Tab.Cr) 40 mg PO ACBREAKFAST [facility] Last Admin: 01/21/21 07:28 Dose: 40 mg Documented by: Senna/Docusate Sodium (Docusate Sodium/Sennosides 50-8.6 Mg Tab) 1 tab PO DAILY PRN PRN Reason: CONSTIPATION Sodium Chloride (Sodium Chloride 0.65% Nasal [place] 45 Ml Bottle) 0 ml NASBOTH ASDIRECTED PRN PRN Reason: NASAL DRYNESS Last Admin: 01/20/21 18:18 Dose: 2 spray Documented by: Tamsulosin HCl (Tamsulosin 0.4 Mg Cap.Er) 0.4 mg PO DAILY [facility] Last Admin: 01/21/21 09:37 Dose: 0.4 mg Documented by: Tizanidine HCl (Tizanidine 4 Mg Tab) 4 mg PO BEDTIME [facility] Last Admin: 01/20/21 21:23 Dose: 4 mg Documented by: Warfarin Sodium (Warfarin 5 Mg Tab) 5 mg PO DAILY@1300 [facility] Discontinued Medications Sodium Chloride (Normal Saline) 1,000 mls @ 999 mls/hr IV ASDIRECTED [facility] Last Admin: 01/20/21 03:54 Dose: 999 mls/hr Documented by: Sodium Chloride (Normal Saline) 1,000 mls @ 150 mls/hr IV ASDIRECTED [facility] Last Admin: 01/20/21 05:18 Dose: 150 mls/hr Documented by: Ceftriaxone Sodium 1 gm/ (Sodium Chloride) 50 mls @ 100 mls/hr IV ONETIME ONE Stop: 01/20/21 05:35 Last Admin: 01/20/21 05:18 Dose: 100 mls/hr Documented by: Sodium Chloride (Normal Saline) 1,000 mls @ 100 mls/hr [facility] Last Admin: 01/21/21 01:09 Dose: 100 mls/hr Documented by: Tizanidine HCl (Tizanidine 4 Mg Tab) 8 mg PO TID [facility] Last Admin: 01/20/21 13:41 Dose: Not Given Documented by: Tizanidine HCl (Tizanidine 4 Mg Tab) 8 mg PO TID PRN PRN Reason: Muscle Spasm - Painful - Exam General: Alert, Oriented, Cooperative, Mild Distress HEENT: Pupils Equal Neck: Supple Lungs: Clear to Auscultation Cardiovascular: Regular Rate GI/Abdominal Exam: Normal Bowel Sounds, Soft Extremities: Normal Inspection Peripheral Pulses: 1+: Radial (L), Radial (R) Skin: Warm, Dry Psy/Mental Status: Normal Affect - Patient Data Lab Results Last 24 hrs: Laboratory Results - last 24 hr 01/21/21 01/21/21 01/21/21 Range/Units 04:25 04:25 04:25 WBC 9.5 (4.5-11.0) K/uL RBC 4.40 (4.30-5.90) M/uL Hgb 13.0 (12.0-15.0) g/dL Hct 40.6 (40.0-54.0) % MCV 92 (80-98) fL MCH 30 (27-31) pg MCHC 32 (32-36) % Plt Count 116 L (150-400) K/uL Neut % (Auto) 79.9 H (36-66) % Lymph % (Auto) 12.7 L (24-44) % [place] % (Auto) 5.9 (2-6) % Eos % (Auto) 1.3 L (2-4) % Baso % (Auto) 0.2 (0-1) % PT 23.8 H (9.5-12.0) sec INR 2.22 H (0.80-1.20) Sodium 141 (140-148) mmol/L Potassium 3.9 (3.6-5.2) mmol/L Chloride 108 (100-108) mmol/L Carbon Dioxide 24 (21-32) mmol/L Anion Gap 8.8 (5.0-14.0) mmol/L BUN 17 (7-18) mg/dL Creatinine 1.1 (0.8-1.3) mg/dL Est Cr Clr Drug Dosing 55.30 mL/min Estimated GFR (MDRD) > 60 (>60) Glucose 135 H (74-106) mg/dL Calcium 9.3 (8.5-10.1) mg/dL Total Bilirubin 0.3 (0.2-1.0) mg/dL AST 17 (15-37) U/L ALT 31 (12-78) U/L Alkaline Phosphatase 86 (46-116) U/L Total Protein 5.8 L (6.4-8.2) g/dL Albumin 2.5 L (3.4-5.0) g/dL Globulin 3.3 (2.3-3.5) g/dL Albumin/Globulin Ratio 0.8 L (1.2-2.2) Result Diagrams: 01/21/21 04:25 01/21/21 04:25 Myles Results Last 24 hrs: Microbiology 01/20/21 04:15 Urine Culture - Preliminary Urine, Voided Sepsis Event Note - Evaluation Sepsis Screening Result: Possible Sepsis Risk - Focused Exam Vital Signs: Vital Signs Temp Pulse Resp BP Pulse Ox 01/21/21 07:15 98.7 F 66 18 125/70 98 01/21/21 02:51 97.7 F 62 16 94/41 L 96 01/21/21 00:00 97.8 F 62 16 87/49 L 96 - Problem List Review Problem List Initiated/Reviewed/Updated: Yes - My Orders Last 24 Hours: My Active Orders 01/20/21 20:43 Acetaminophen [Tylenol Extra Strength] 1,000 mg PO BEDTIME PRN 01/20/21 21:00 tiZANidine [Zanaflex] 4 mg PO BEDTIME 01/21/21 05:00 cefTRIAXone [Rocephin] 1 gm Sodium Chloride 0.9% [Normal Saline] 50 ml IV Q24H 01/21/21 11:40 Convert IV to Saline Lock [OM.PC] Routine 01/21/21 13:00 Warfarin [Coumadin] 5 mg PO DAILY@1300 01/22/21 06:00 CBC WITH AUTO DIFF [HEME] Routine COMPREHENSIVE METABOLIC PN,CMP [CHEM] Routine INR,PT,PROTHROMBIN TIME [COAG] Routine - Plan Plan:: Assessment/Plan: #1. Septicemia /UTI: Hydrated presently and no BP change with standing. Will continue with Rocephin. A culture is pending of the urine. Cbc shows WBC normal 9.5 #2. 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 History of HTN on Medication: #5. History of CVA #6. Chronic low back pain: Back surgery is planned. He still needs antibiotics as culture report is still pending. He is able to walk but he lives along and not safe to go home alone yet as he is unsteady on his feet yet.
[2021-01-21] MEDS ORDERED: Warfarin 5 MG Tab PO SCH (13:00)
[2021-01-21] MEDS: Acetaminophen 500 MG Tab PO PRN (21:25)
[2021-01-21] MEDS: tiZANidine 4 MG Tab PO SCH (21:31)
[2021-01-22] MEDS: cefTRIAXone 1 GM in Sodium Chloride 0.9% 50 ML IV SCH (04:41)
[2021-01-22 08:00] VITALS: BP 140/89; PULSE 66
--- NOTE | 2021-01-22 08:48 | PCM.PN ---
- General Info Date of Service: 01/22/21 Functional Status: Reports: Pain Controlled - Review of Systems General: Reports: No Symptoms Pulmonary: Reports: No Symptoms Cardiovascular: Reports: No Symptoms Gastrointestinal: Reports: No Symptoms Genitourinary: Reports: No Symptoms Musculoskeletal: Reports: No Symptoms Skin: Reports: No Symptoms Neurological: Reports: No Symptoms Psychiatric: Reports: No Symptoms - Patient Data Vitals - Most Recent: Last Vital Signs Temp 97.8 F 01/22/21 07:00 Pulse 66 01/22/21 07:00 Resp 18 01/22/21 07:00 BP 140/89 01/22/21 07:00 Pulse Ox 98 01/22/21 07:00 Weight - Most Recent: 264 lb I&O - Last 24 Hours: Intake & Output 01/21/21 01/22/21 01/22/21 22:59 06:59 14:59 Intake Total 1621 50 Output Total 1800 1100 200 Balance -179 -1050 -200 Lab Results Last 24 Hours: Laboratory Results - last 24 hr 01/22/21 01/22/21 01/22/21 Range/Units 05:45 05:45 05:45 WBC 6.2 (4.5-11.0) K/uL RBC 4.41 (4.30-5.90) M/uL Hgb 13.2 (12.0-15.0) g/dL Hct 39.9 L (40.0-54.0) % MCV 91 (80-98) fL MCH 30 (27-31) pg MCHC 33 (32-36) % Plt Count 127 L (150-400) K/uL Neut % (Auto) 72.8 H (36-66) % Lymph % (Auto) 19.0 L (24-44) % [place] % (Auto) 5.8 (2-6) % Eos % (Auto) 2.1 (2-4) % Baso % (Auto) 0.3 (0-1) % PT 19.1 H (9.5-12.0) sec INR 1.77 H (0.80-1.20) Sodium 145 (140-148) mmol/L Potassium 4.0 (3.6-5.2) mmol/L Chloride 108 (100-108) mmol/L Carbon Dioxide 24 (21-32) mmol/L Anion Gap 13.0 (5.0-14.0) mmol/L BUN 17 (7-18) mg/dL Creatinine 1.1 (0.8-1.3) mg/dL Est Cr Clr Drug Dosing 55.30 mL/min Estimated GFR (MDRD) > 60 (>60) Glucose 120 H (74-106) mg/dL Calcium 9.3 (8.5-10.1) mg/dL Total Bilirubin 0.3 (0.2-1.0) mg/dL AST 19 (15-37) U/L ALT 31 (12-78) U/L Alkaline Phosphatase 84 (46-116) U/L Total Protein 5.9 L (6.4-8.2) g/dL Albumin 2.5 L (3.4-5.0) g/dL Globulin 3.4 (2.3-3.5) g/dL Albumin/Globulin Ratio 0.7 L (1.2-2.2) Myles Results Last 24 Hours: Microbiology 01/20/21 04:15 Urine Culture - Final Urine, Voided Citrobacter Koseri Med Orders - Current: Current Medications Acetaminophen (Acetaminophen 500 Mg Tab) 1,000 mg PO BEDTIME PRN PRN Reason: Pain Last Admin: 01/21/21 21:25 Dose: 1,000 mg Documented by: Gabapentin (Gabapentin 400 Mg Cap) 800 mg PO TID [facility] Last Admin: 01/21/21 21:24 Dose: 800 mg Documented by: Ceftriaxone Sodium 1 gm/ (Sodium Chloride) 50 mls @ 100 mls/hr IV Q24H [facility] Last Admin: 01/22/21 04:41 Dose: 100 mls/hr Documented by: Levetiracetam (Levetiracetam 250 Mg Tab) 500 mg PO BID [facility] Last Admin: 01/21/21 21:24 Dose: 500 mg Documented by: Loratadine (Loratadine 10 Mg Tab) 10 mg PO DAILY [facility] Last Admin: 01/21/21 09:37 Dose: 10 mg Documented by: Multivitamins/Minerals (Multivitamins With Iron/Calcium/Folic Acid/Minerals Tab) 1 tab PO DAILY [facility] Last Admin: 01/21/21 09:36 Dose: 1 tab Documented by: Nitroglycerin (Nitroglycerin 0.4 Mg Tab.Sl) 0.4 mg SL ASDIRECTED PRN PRN Reason: CHESTPAIN Pantoprazole Sodium (Pantoprazole 40 Mg Tab.Cr) 40 mg PO ACBREAKFAST [facility] Last Admin: 01/21/21 07:28 Dose: 40 mg Documented by: Senna/Docusate Sodium (Docusate Sodium/Sennosides 50-8.6 Mg Tab) 1 tab PO DAILY PRN PRN Reason: CONSTIPATION Sodium Chloride (Sodium Chloride 0.65% Nasal [place] 45 Ml Bottle) 0 ml NASBOTH ASDIRECTED PRN PRN Reason: NASAL DRYNESS Last Admin: 01/20/21 18:18 Dose: 2 spray Documented by: Tamsulosin HCl (Tamsulosin 0.4 Mg Cap.Er) 0.4 mg PO DAILY [facility] Last Admin: 01/21/21 09:37 Dose: 0.4 mg Documented by: Tizanidine HCl (Tizanidine 4 Mg Tab) 4 mg PO BEDTIME [facility] Last Admin: 01/21/21 21:31 Dose: 4 mg Documented by: Warfarin Sodium (Warfarin 5 Mg Tab) 5 mg PO DAILY@1300 [facility] Last Admin: 01/21/21 15:07 Dose: 5 mg Documented by: Discontinued Medications Sodium Chloride (Normal Saline) 1,000 mls @ 999 mls/hr IV ASDIRECTED [facility] Last Admin: 01/20/21 03:54 Dose: 999 mls/hr Documented by: Sodium Chloride (Normal Saline) 1,000 mls @ 150 mls/hr IV ASDIRECTED [facility] Last Admin: 01/20/21 05:18 Dose: 150 mls/hr Documented by: Ceftriaxone Sodium 1 gm/ (Sodium Chloride) 50 mls @ 100 mls/hr IV ONETIME ONE Stop: 01/20/21 05:35 Last Admin: 01/20/21 05:18 Dose: 100 mls/hr Documented by: Sodium Chloride (Normal Saline) 1,000 mls @ 100 mls/hr IV ASDIRECTED [facility] Last Admin: 01/21/21 01:09 Dose: 100 mls/hr Documented by: Tizanidine HCl (Tizanidine 4 Mg Tab) 8 mg PO TID [facility] Last Admin: 01/20/21 13:41 Dose: Not Given Documented by: Tizanidine HCl (Tizanidine 4 Mg Tab) 8 mg PO TID PRN PRN Reason: Muscle Spasm - Painful - Exam General: Alert, Oriented HEENT: Pupils Equal, Pupils Reactive, EOMI, Mucous Membr. Moist/Morris Lungs: Clear to Auscultation, Normal Respiratory Effort Cardiovascular: Regular Rate, Regular Rhythm GI/Abdominal Exam: Normal Bowel Sounds, Soft, Non-Tender, No Organomegaly, No Distention, No Abnormal Bruit, No Mass, Pelvis Stable Back Exam: Normal Inspection, Full Range of Motion Extremities: Normal Inspection, Normal Range of Motion, Non-Tender, No Pedal Edema, Normal Capillary Refill Peripheral Pulses: 1+: Radial (L), Radial (R) Skin: Warm, Dry, Intact Neurological: No New Focal Deficit Psy/Mental Status: Alert, Normal Affect, Normal Mood - Patient Data Lab Results Last 24 hrs: Laboratory Results - last 24 hr 01/22/21 01/22/21 01/22/21 Range/Units 05:45 05:45 05:45 WBC 6.2 (4.5-11.0) K/uL RBC 4.41 (4.30-5.90) M/uL Hgb 13.2 (12.0-15.0) g/dL Hct 39.9 L (40.0-54.0) % MCV 91 (80-98) fL MCH 30 (27-31) pg MCHC 33 (32-36) % Plt Count 127 L (150-400) K/uL Neut % (Auto) 72.8 H (36-66) % Lymph % (Auto) 19.0 L (24-44) % [place] % (Auto) 5.8 (2-6) % Eos % (Auto) 2.1 (2-4) % Baso % (Auto) 0.3 (0-1) % PT 19.1 H (9.5-12.0) sec INR 1.77 H (0.80-1.20) Sodium 145 (140-148) mmol/L Potassium 4.0 (3.6-5.2) mmol/L Chloride 108 (100-108) mmol/L Carbon Dioxide 24 (21-32) mmol/L Anion Gap 13.0 (5.0-14.0) mmol/L BUN 17 (7-18) mg/dL Creatinine 1.1 (0.8-1.3) mg/dL Est Cr Clr Drug Dosing 55.30 mL/min Estimated GFR (MDRD) > 60 (>60) Glucose 120 H (74-106) mg/dL Calcium 9.3 (8.5-10.1) mg/dL Total Bilirubin 0.3 (0.2-1.0) mg/dL AST 19 (15-37) U/L ALT 31 (12-78) U/L Alkaline Phosphatase 84 (46-116) U/L Total Protein 5.9 L (6.4-8.2) g/dL Albumin 2.5 L (3.4-5.0) g/dL Globulin 3.4 (2.3-3.5) g/dL Albumin/Globulin Ratio 0.7 L (1.2-2.2) Result Diagrams: 01/22/21 05:45 01/22/21 05:45 Myles Results Last 24 hrs: Microbiology 01/20/21 04:15 Urine Culture - Final Urine, Voided Citrobacter Koseri Sepsis Event Note - Evaluation Sepsis Screening Result: Possible Sepsis Risk - Focused Exam Vital Signs: Vital Signs Temp Pulse Resp BP Pulse Ox 01/22/21 07:00 97.8 F 66 18 140/89 98 01/21/21 22:58 99.0 F 64 16 116/70 97 - Problem List Review Problem List Initiated/Reviewed/Updated: Yes - My Orders Last 24 Hours: My Active Orders 01/21/21 11:40 Convert IV to Saline Lock [OM.PC] Routine 01/21/21 13:00 Warfarin [Coumadin] 5 mg PO DAILY@1300 01/22/21 08:00 Consult to Physical Therapy [PT Evaluation and Treatment] [CONS] Routine - Plan Plan:: Assessment/Plan: #1. Septicemia /UTI: Hydrated. BP 140/89 Urine culture sensitive to almost everything will DC home on Levaquin for 3 days. #2. Atrial Fib on Coumadin cont with coumadin. INR low 1.77 today. #3. S/P pacemaker due to bradycardia #4. History of HTN on Medication: #5. History of CVA #6. Chronic low back pain: Back surgery is planned. Plan home today.
--- NOTE | 2021-01-22 08:55 | PCM.DCSUM1 ---
Discharge Summary - Hospital Course Brief History: Admitted with a UTI and having lower BP consistent with septecemia after having a cystocopy 1 week ago. BP was low and very weak and came into the ER by ambulance as his BP was low. Diagnosis: Stroke: No - Discharge Data Discharge Date: 01/22/21 Discharge Disposition: Home, Self-Care 01 Condition: Stable - Referral to Home Health Primary Care Physician: PCP None - Patient Summary/Data Consults: Consultations 01/22/21 08:00 Consult to Physical Therapy [PT Evaluation and Treatment] [CONS] Routine Please Evaluate and Treat. PT Reason for Consult: Strengthening Pending Discharge: Yes Discharge Disposition: Home This query below is only for informational purposes and is not editable. Admission Diagnosis/Problem: Hypotension Hospital Course: BP was low and and fluid was given and the UTI was treated and he did very well in and BP came to be normal without a ortho drop and WBC dropped to normal. - Patient Instructions Diet: Heart Healthy Diet Activity: As Tolerated - Discharge Plan *PRESCRIPTION DRUG MONITORING PROGRAM REVIEWED*: No Home Medications: Home Meds Hydrochlorothiazide 25 mg PO DAILY 12/04/15 [History] Lisinopril 20 mg PO DAILY 12/04/15 [History] Warfarin [Coumadin] 5 mg PO DAILY 12/04/15 [History] Acetaminophen [Tylenol] 650 mg PO Q6H #200 tablet 04/21/17 [Rx] Multivitamin with Minerals [Multiple Vitamin] 1 tab PO DAILY 11/05/18 [History] Nitroglycerin 0.3 mg SL ASDIRECTED 11/05/18 [History] Pantoprazole Sodium 40 mg PO ACBREAKFAST 11/05/18 [History] Sodium Chloride 0.65% [[place] Saline] 2 squirt NASBOTH ASDIRECTED 11/05/18 [History] levETIRAcetam [Keppra] 500 mg PO BID 11/05/18 [History] Docusate Sodium/Sennosides [Senna Plus] 1 tab PO ASDIRECTED PRN 01/20/21 [History] Gabapentin [Neurontin] 800 mg PO TID 01/20/21 [History] Loratadine [Claritin] 10 mg PO DAILY 01/20/21 [History] Tamsulosin [Flomax] 0.4 mg PO DAILY 01/20/21 [History] tiZANidine [Zanaflex] 4 mg PO BEDTIME 01/20/21 [History] Patient Handouts: Hypotension, [id number], Urinary Tract Infection, Adult Forms: ED Department Discharge Referrals: PCP,None [Primary Care Provider] - - Discharge Summary/Plan Comment DC Time >30 min.: Yes Total # of Minutes for Discharge Time: 180 - Patient Data Vitals - Most Recent: Last Vital Signs Temp 97.8 F 01/22/21 07:00 Pulse 66 01/22/21 07:00 Resp 18 01/22/21 07:00 BP 140/89 01/22/21 07:00 Pulse Ox 98 01/22/21 07:00 Weight - Most Recent: 264 lb I&O - Last 24 hours: Intake & Output 01/21/21 01/22/21 01/22/21 22:59 06:59 14:59 Intake Total 1621 50 Output Total 1800 1100 200 Balance -179 -1050 -200 Lab Results - Last 24 hrs: Laboratory Results - last 24 hr 01/22/21 01/22/21 01/22/21 Range/Units 05:45 05:45 05:45 WBC 6.2 (4.5-11.0) K/uL RBC 4.41 (4.30-5.90) M/uL Hgb 13.2 (12.0-15.0) g/dL Hct 39.9 L (40.0-54.0) % MCV 91 (80-98) fL MCH 30 (27-31) pg MCHC 33 (32-36) % Plt Count 127 L (150-400) K/uL Neut % (Auto) 72.8 H (36-66) % Lymph % (Auto) 19.0 L (24-44) % [place] % (Auto) 5.8 (2-6) % Eos % (Auto) 2.1 (2-4) % Baso % (Auto) 0.3 (0-1) % PT 19.1 H (9.5-12.0) sec INR 1.77 H (0.80-1.20) Sodium 145 (140-148) mmol/L Potassium 4.0 (3.6-5.2) mmol/L Chloride 108 (100-108) mmol/L Carbon Dioxide 24 (21-32) mmol/L Anion Gap 13.0 (5.0-14.0) mmol/L BUN 17 (7-18) mg/dL Creatinine 1.1 (0.8-1.3) mg/dL Est Cr Clr Drug Dosing 55.30 mL/min Estimated GFR (MDRD) > 60 (>60) Glucose 120 H (74-106) mg/dL Calcium 9.3 (8.5-10.1) mg/dL Total Bilirubin 0.3 (0.2-1.0) mg/dL AST 19 (15-37) U/L ALT 31 (12-78) U/L Alkaline Phosphatase 84 (46-116) U/L Total Protein 5.9 L (6.4-8.2) g/dL Albumin 2.5 L (3.4-5.0) g/dL Globulin 3.4 (2.3-3.5) g/dL Albumin/Globulin Ratio 0.7 L (1.2-2.2) GENNY Results - Last 24 hrs: Microbiology 01/20/21 04:15 Urine Culture - Final Urine, Voided Citrobacter Koseri Med Orders - Current: Current Medications Acetaminophen (Acetaminophen 500 Mg Tab) 1,000 mg PO BEDTIME PRN PRN Reason: Pain Last Admin: 01/21/21 21:25 Dose: 1,000 mg Documented by: Gabapentin (Gabapentin 400 Mg Cap) 800 mg PO TID [facility] Last Admin: 01/21/21 21:24 Dose: 800 mg Documented by: Ceftriaxone Sodium 1 gm/ (Sodium Chloride) 50 mls @ 100 mls/hr IV Q24H [facility] Last Admin: 01/22/21 04:41 Dose: 100 mls/hr Documented by: Levetiracetam (Levetiracetam 250 Mg Tab) 500 mg PO BID [facility] Last Admin: 01/21/21 21:24 Dose: 500 mg Documented by: Loratadine (Loratadine 10 Mg Tab) 10 mg PO DAILY [facility] Last Admin: 01/21/21 09:37 Dose: 10 mg Documented by: Multivitamins/Minerals (Multivitamins With Iron/Calcium/Folic Acid/Minerals Tab) 1 tab PO DAILY [facility] Last Admin: 01/21/21 09:36 Dose: 1 tab Documented by: Nitroglycerin (Nitroglycerin 0.4 Mg Tab.Sl) 0.4 mg SL ASDIRECTED PRN PRN Reason: CHESTPAIN Pantoprazole Sodium (Pantoprazole 40 Mg Tab.Cr) 40 mg PO ACBREAKFAST [facility] Last Admin: 01/21/21 07:28 Dose: 40 mg Documented by: Senna/Docusate Sodium (Docusate Sodium/Sennosides 50-8.6 Mg Tab) 1 tab PO DAILY PRN PRN Reason: CONSTIPATION Sodium Chloride (Sodium Chloride 0.65% Nasal [place] 45 Ml Bottle) 0 ml NASBOTH ASDIRECTED PRN PRN Reason: NASAL DRYNESS Last Admin: 01/20/21 18:18 Dose: 2 spray Documented by: Tamsulosin HCl (Tamsulosin 0.4 Mg Cap.Er) 0.4 mg PO DAILY [facility] Last Admin: 01/21/21 09:37 Dose: 0.4 mg Documented by: Tizanidine HCl (Tizanidine 4 Mg Tab) 4 mg PO BEDTIME [facility] Last Admin: 01/21/21 21:31 Dose: 4 mg Documented by: Warfarin Sodium (Warfarin 5 Mg Tab) 5 mg PO DAILY@1300 [facility] Last Admin: 01/21/21 15:07 Dose: 5 mg Documented by: Discontinued Medications Sodium Chloride (Normal Saline) 1,000 mls @ 999 mls/hr IV ASDIRECTED [facility] Last Admin: 01/20/21 03:54 Dose: 999 mls/hr Documented by: Sodium Chloride (Normal Saline) 1,000 mls @ 150 mls/hr IV ASDIRECTED [facility] Last Admin: 01/20/21 05:18 Dose: 150 mls/hr Documented by: Ceftriaxone Sodium 1 gm/ (Sodium Chloride) 50 mls @ 100 mls/hr IV ONETIME ONE Stop: 01/20/21 05:35 Last Admin: 01/20/21 05:18 Dose: 100 mls/hr Documented by: Sodium Chloride (Normal Saline) 1,000 mls @ 100 mls/hr IV ASDIRECTED [facility] Last Admin: 01/21/21 01:09 Dose: 100 mls/hr Documented by: Tizanidine HCl (Tizanidine 4 Mg Tab) 8 mg PO TID [facility] Last Admin: 01/20/21 13:41 Dose: Not Given Documented by: Tizanidine HCl (Tizanidine 4 Mg Tab) 8 mg PO TID PRN PRN Reason: Muscle Spasm - Painful
--- NOTE | 2021-01-22 09:07 | CR ---
CHEST: Portable 01/20/2021 at 12:49 AM CLINICAL HISTORY:Hypotension, weakness COMPARISON:11/20/2018 FINDINGS: Heart size is borderline enlarged. There is a double density in the region of the left ventricle. This could be a fluid-filled hiatal hernia. Prominent cardiac fat pad is not excluded. Patient has a permanent cardiac pacer. There are atherosclerotic changes in the aorta.. Lungs are clear. Impression: Mild cardiomegaly No acute pulmonary process Permanent cardiac pacer.
[2021-01-22] MEDS: Pantoprazole 40 MG Tab.CR PO SCH (09:11)
[2021-01-22] MEDS: levETIRAcetam 250 MG Tab PO SCH (09:12)
[2021-01-22] MEDS: Tamsulosin 0.4 MG Cap.ER PO SCH (09:12)
[2021-01-22] MEDS: Loratadine 10 MG Tab PO SCH (09:12)
[2021-01-22] MEDS: Gabapentin 400 MG Cap PO SCH (09:13)
[2021-01-22] MEDS: Multivitamins with Iron/Calcium/Folic Acid/Minerals Tab PO SCH (09:13)
== END 2021-01-22 10:05 | disposition home or self-care (01) | DRG 872 ==
LOC: JP.ED 00:02 → JP.MS 06:42
PROVIDERS: ADMIT Internal Medicine; ATTEND Internal Medicine
DX: A41.9 Sepsis, unspecified organism (principal); M62.81 Muscle weakness (generalized); N39.0 Urinary tract infection, site not specified; H54.7 Unspecified visual loss; J30.9 Allergic rhinitis, unspecified; I48.91 Unspecified atrial fibrillation; I25.2 Old myocardial infarction; R33.9 Retention of urine, unspecified; M19.90 Unspecified osteoarthritis, unspecified site; F32.9 Major depressive disorder, single episode, unspecified; E66.9 Obesity, unspecified; D64.9 Anemia, unspecified; Z96.642 Presence of left artificial hip joint; Z85.038 Personal history of other malignant neoplasm of large intestine; Z20.822 Contact with and (suspected) exposure to COVID-19; R00.1 Bradycardia, unspecified; I10 Essential (primary) hypertension; G89.29 Other chronic pain; M54.5 Low back pain; Z79.01 Long term (current) use of anticoagulants; Z79.899 Other long term (current) drug therapy; Z88.0 Allergy status to penicillin; Z88.2 Allergy status to sulfonamides; Z86.010 Personal history of colon polyps; Z90.89 Acquired absence of other organs; Z98.890 Other specified postprocedural states; Z95.0 Presence of cardiac pacemaker; Z86.73 Personal history of transient ischemic attack (TIA), and cerebral infarction without residual deficits
CPT/HCPCS: 36415; 71045; 71045-26; 80053; 81001; 83605; 85025; 85610; 86140; 87086; 87088; 87186; 96365; 99285-25; A9270-GY; J0696; J7030; U0002

== ENCOUNTER 2021-09-26 17:18 | Emergency (ER) | payer MEDICARE, MEDICAID ==
[2021-09-26] MEDS ORDERED: HYDROmorphone 0.5 MG/0.5 ML Syringe IVPUSH ONE (17:59)
[2021-09-26] MEDS ORDERED: Sodium Chloride 0.9% 500 ML IV ONE (18:43)
[2021-09-26] MEDS ORDERED: Sodium Chloride 0.9% 75 ML IV SCH (19:00)
[2021-09-26] MEDS ORDERED: Iopamidol 612 MG/ML 100 ML Bottle IV SCH (19:00)
[2021-09-26] MEDS ORDERED: Doxycycline 100 MG Cap PO ONE (20:30)
[2021-09-26 20:40] VITALS: BP 127/72; PULSE 81
[2021-09-26] MEDS ORDERED: Acetaminophen 500 MG Tab PO ONE (20:57)
== END 2021-09-26 21:11 | disposition home or self-care (01) ==
LOC: JP.ED 17:18
DX: L03.311 Cellulitis of abdominal wall (principal); R82.71 Bacteriuria; R82.81 Pyuria; I48.91 Unspecified atrial fibrillation; I10 Essential (primary) hypertension; I25.2 Old myocardial infarction; E66.9 Obesity, unspecified; Z95.0 Presence of cardiac pacemaker; Z88.0 Allergy status to penicillin; Z79.01 Long term (current) use of anticoagulants; Z79.899 Other long term (current) drug therapy; Z87.891 Personal history of nicotine dependence; Z68.33 Body mass index [BMI] 33.0-33.9, adult
CPT/HCPCS: 36415; 74177; 80053; 81001; 83605; 85025; 85610; 86140; 87086; 87186; 96374; 99282; 99284-25; A9270-GY; J1170; J3490; J7040; Q9967

== ENCOUNTER 2022-07-08 11:17 | Emergency (ER) | payer MEDICARE, MEDICAID ==
[2022-07-08] MEDS ORDERED: Ketorolac 30 MG/ML SDV IM ONE (11:54)
[2022-07-08 13:10] VITALS: BP 111/68; PULSE 80
== END 2022-07-08 13:28 | disposition home or self-care (01) ==
LOC: JP.ED 11:17
DX: M25.551 Pain in right hip (principal); I25.10 Atherosclerotic heart disease of native coronary artery without angina pectoris; I10 Essential (primary) hypertension; I48.91 Unspecified atrial fibrillation; E66.9 Obesity, unspecified; Z68.32 Body mass index [BMI] 32.0-32.9, adult; Z95.0 Presence of cardiac pacemaker; Z88.0 Allergy status to penicillin; Z88.2 Allergy status to sulfonamides; Z79.01 Long term (current) use of anticoagulants
CPT/HCPCS: 73502; 96372; 99283; J1885

== ENCOUNTER 2022-09-03 15:17 | Observation (INO) | payer MEDICARE, MEDICAID ==
[2022-09-03 17:08] LABS: CORONAVIRUS COVID-19 NAA NEGATIVE (NEGATIVE)
[2022-09-03] MEDS ORDERED: cefTRIAXone 1 GM in Sodium Chloride 0.9% 50 ML IV ONE (17:20)
[2022-09-03] MEDS ORDERED: Sodium Chloride 0.9% 10 ML Syringe FLUSH PRN (18:01)
[2022-09-03] MEDS ORDERED: KETOROLAC 10 MG PO PRN (18:07)
[2022-09-03] MEDS ORDERED: Acetaminophen 325 MG Tab, 50 Tab Bulk Bottle PO SCH (18:30)
[2022-09-03] MEDS: Acetaminophen 325 MG Tab PO SCH (20:55)
[2022-09-03] MEDS ORDERED: Non-Formulary Medication 1 Each (Levetiracetam [Keppra] 500 MG Tablet) PO SCH (21:00)
[2022-09-03] MEDS ORDERED: levETIRAcetam 250 MG Tab PO SCH ×2 (21:00→22:30)
[2022-09-04] MEDS: Acetaminophen 325 MG Tab PO SCH ×4 (03:00→20:12)
[2022-09-04] MEDS ORDERED: Verapamil 120 MG Tab.ER PO SCH (09:00)
[2022-09-04] MEDS ORDERED: Tamsulosin 0.4 MG Cap.ER PO SCH (09:00)
[2022-09-04] MEDS: VERAPAMIL 240 MG PO SCH (09:20)
[2022-09-04] MEDS: HYDROCHLOROTHIAZIDE 25 MG PO SCH (09:25)
[2022-09-04] MEDS: Potassium Chloride 20 MEQ Tab.ER*POM PO SCH (09:25)
[2022-09-04] MEDS: ESCITALOPRAM 10 MG PO SCH (09:26)
[2022-09-04] MEDS ORDERED: Iopamidol 612 MG/ML 100 ML Bottle IV ONE (09:52)
[2022-09-04] MEDS ORDERED: Sodium Chloride 0.9% 50 ML IV SCH (10:00)
[2022-09-04] MEDS: Loratadine 10 MG Tab PO SCH (11:04)
[2022-09-04] MEDS: Multivitamins with Iron/Calcium/Folic Acid/Minerals Tab PO SCH (11:04)
[2022-09-04] MEDS: Lisinopril 10 MG Tab PO SCH (11:05)
[2022-09-04] MEDS: Warfarin 5 MG Tab*POM PO SCH (13:41)
[2022-09-04] MEDS ORDERED: cefTRIAXone 1 GM in Sodium Chloride 0.9% 50 ML IV SCH (16:00)
[2022-09-04] MEDS ORDERED: TAMSULOSIN 0.4 MG PO SCH (21:00)
[2022-09-05] MEDS: Acetaminophen 325 MG Tab PO SCH ×2 (02:16→09:14)
[2022-09-05] MEDS: Multivitamins with Iron/Calcium/Folic Acid/Minerals Tab PO SCH (09:13)
[2022-09-05] MEDS: Lisinopril 10 MG Tab PO SCH (09:13)
[2022-09-05] MEDS: VERAPAMIL 240 MG PO SCH (10:36)
[2022-09-05] MEDS: HYDROCHLOROTHIAZIDE 25 MG PO SCH (10:36)
[2022-09-05] MEDS: ESCITALOPRAM 10 MG PO SCH (10:37)
[2022-09-05] MEDS: Potassium Chloride 20 MEQ Tab.ER*POM PO SCH (10:37)
[2022-09-05] MEDS: Loratadine 10 MG Tab PO SCH (10:41)
[2022-09-05] MEDS: Warfarin 5 MG Tab*POM PO SCH (13:34)
[2022-09-05 15:07] VITALS: PULSE 73
[2022-09-05 15:08] VITALS: BP 107/57
== END 2022-09-05 16:55 | disposition home or self-care (01) ==
LOC: JP.ED 15:17 → JP.MS 18:21
PROVIDERS: ADMIT Internal Medicine; ATTEND Internal Medicine
DX: R53.1 Weakness (principal); I48.91 Unspecified atrial fibrillation; R10.9 Unspecified abdominal pain; I10 Essential (primary) hypertension; I25.10 Atherosclerotic heart disease of native coronary artery without angina pectoris; N40.0 Benign prostatic hyperplasia without lower urinary tract symptoms; M16.11 Unilateral primary osteoarthritis, right hip; F32.A Depression, unspecified; N39.0 Urinary tract infection, site not specified; M54.50 Low back pain, unspecified; K21.9 Gastro-esophageal reflux disease without esophagitis; E11.9 Type 2 diabetes mellitus without complications; M51.36 Other intervertebral disc degeneration, lumbar region; Z20.822 Contact with and (suspected) exposure to COVID-19; Z86.73 Personal history of transient ischemic attack (TIA), and cerebral infarction without residual deficits; Z87.891 Personal history of nicotine dependence; Z88.0 Allergy status to penicillin; Z88.2 Allergy status to sulfonamides; Z79.01 Long term (current) use of anticoagulants; Z79.899 Other long term (current) drug therapy
CPT/HCPCS: 0241U; 36415; 51798; 73501; 74177; 80048; 81001; 85025; 87086; 87088; 87186; 96125; 96365; 96366; 97116; 97162; 97166; 97530; 99285; A9270; J0696; J3490; Q9967

== ENCOUNTER 2022-09-18 17:56 | Emergency (ER) | payer MEDICARE, MEDICAID ==
[2022-09-18 18:05] VITALS: BP 141/85; PULSE 72
[2022-09-18] MEDS ORDERED: Lidocaine 1% with EPINEPHrine 1:100,000 50 ML MDV INFILT ONE (18:08)
== END 2022-09-18 20:38 | disposition home or self-care (01) ==
LOC: JP.ED 17:56
DX: S01.01XA Laceration without foreign body of scalp, initial encounter (principal); S61.411A Laceration without foreign body of right hand, initial encounter; I25.2 Old myocardial infarction; I25.10 Atherosclerotic heart disease of native coronary artery without angina pectoris; I10 Essential (primary) hypertension; I48.91 Unspecified atrial fibrillation; N40.0 Benign prostatic hyperplasia without lower urinary tract symptoms; E66.9 Obesity, unspecified; Z68.30 Body mass index [BMI] 30.0-30.9, adult; Z88.0 Allergy status to penicillin; Z88.2 Allergy status to sulfonamides; Z86.16 Personal history of COVID-19; Z95.0 Presence of cardiac pacemaker; Z79.01 Long term (current) use of anticoagulants; W22.09XA Striking against other stationary object, initial encounter
CPT/HCPCS: 12002; 36415; 70450; 85025; 99284